=== PATIENT | female | born 1950 | race Caucasian/White ===

== ENCOUNTER 2021-04-04 09:10 | Emergency (ER) | payer MEDICARE, OTHER, SELFPAY ==
[2021-04-04 09:10] VITALS: BP 166/89; PULSE 89; RESP 15; TEMP 36.1; BMI 26.6
--- NOTE | 2021-04-04 09:31 | RAD_ITS ---
STUDY: X-RAY - LUMBAR SPINE REASON FOR EXAM: Female, 70 years old. Injury TECHNIQUE: 3 view(s) of the lumbar spine were obtained. COMPARISON: None FINDINGS: Normal lumbar lordosis. There is a 13 degree dextroscoliosis of the lumbar spine centered at L2-3. There are minor retrolistheses of L1 on L2 and L3 on L4. There is multilevel endplate spondylosis of the visualized thoracolumbar vertebrae. Elongated transverse processes of the L5 vertebra, the left side having a pseudoarticulation to the superomedial margin of the left iliac crest. There is multi-level degenerative disc disease with multi-level disc space narrowing, most prominent at L2-3 and L5-S1. There is no demonstrated osseous destructive lesion or acute fracture. Multilevel degenerative arthroses of the lumbar facet joints. The soft tissue structures are unremarkable. RAD/Lumbar Spine 2 or 3 Views IMPRESSION: Degenerative changes of the spine, as detailed above. There is no demonstrated acute fracture. Electronically Signed: Gregg Tobias MD at 10:07 EST , Service support ,
--- NOTE | 2021-04-04 09:31 | RAD_ITS ---
STUDY: X-RAY - PELVIS REASON FOR EXAM: Female, 70 years old. Injury TECHNIQUE: One view of the pelvis was obtained on 2 images. COMPARISON: None. FINDINGS: There is a non-specific bowel gas pattern. Normal visualized soft tissue structures. Degenerative changes are evident in the lower lumbar spine. There are elongated L5 transverse processes, the left having a pseudoarticulation to the superomedial margin of the left iliac crest. Normal bilateral iliac wings, sacroiliac joints and visualized sacrum. Normal visualized bilateral superior and inferior pubic rami. Normal pubic symphysis. Normal ischial tuberosities. There is no demonstrated osseous destructive lesion or acute fracture. Normal visualized right femoral head. Normal right acetabulum. Normal right hip joint. Normal visualized left femoral head. Normal left acetabulum. Normal left hip joint. RAD/Pelvis 1 or 2 Views IMPRESSION: Normal x-ray examination of the pelvis. There are degenerative changes of the spine; see report of lumbar spine also done today. Electronically Signed: Gregg Tobias MD at 10:08 EST , Service support ,
--- NOTE | 2021-04-04 10:03 | ED.VIS.BACK ---
HPI History of Present Illness Chief Complaint: Back Informant: patient Narrative Narrative: 70-year-old female presents the emergency room with back pain. Patient states about 3 weeks ago she sustained a mechanical fall. States she was a little sore but nothing that was unbearable. For the next couple days she started having increasing pain in the right low back sending into the buttock and down the leg to the foot. She states that the foot feels like it has decreased sensation. She has no bowel or bladder complaints. Pain seems to be worst when she is sitting and when she walks. No red flag history. She is otherwise been a very healthy individual. PFS PFS Medical History no medical history no medical history Home Medications cyclobenzaprine 10 mg PO TID PRN #20 tablet 04/04/21 [Rx Last Taken Unknown] hydrocodone-acetaminophen 1 tab PO Q6H PRN PRN 3 Days #10 tablet 04/04/21 [Rx Last Taken Unknown] naproxen 500 mg PO BID #20 tab 04/04/21 [Rx Last Taken Unknown] prednisone 60 mg PO DAILY #15 tablet 04/04/21 [Rx Last Taken Unknown] Allergy/AdvReac Type Severity Reaction Status Date / Time No Known Allergies Allergy Verified 04/04/21 09:18 Surgical History no surgical history Social History (Updated 04/04/21 @ 10:[address] Star Chavez, ) Smoking Status: Never smoker substance use type: does not use ROS ROS ED Constitutional Constitutional ED: Denies chills or weight loss Eyes Eyes: Denies change in vision or diplopia ENT ENT ED: Denies ear pain, rhinorrhea or sore throat Cardiovascular Cardiovascular: Denies chest pain, orthopnea, palpitations or racing heartbeat Respiratory/Chest Respiratory/Chest: Denies cough, dyspnea or orthopnea Gastrointestinal Gastrointestinal: Denies abdominal pain, diarrhea, nausea or vomiting Genitourinary Genitourinary ED: Denies dysuria, hematuria or urinary frequency Musculoskeletal Musculoskeletal: Reports back pain; Denies arthralgias or myalgias Integumentary Denies abscess or rash Neurologic Neurologic: Reports paresthesias; Denies headache(s) or weakness Psychiatric Psychiatric: Denies anxiety, depression, suicidal ideation or suicidal thoughts Endocrine Endocrinology: Denies polydipsia, polyphagia or polyuria Allergic/Immunologic Allergic/Immunologic ED: Denies mouth swelling, tongue swelling or urticaria EXAM Physical Exam Const Vital Signs: 04/04/21 09:10 Temperature 97.0 F L Temperature Source Temporal Pulse Rate 89 Respiratory Rate 15 Blood Pressure 166/89 H Blood Pressure Mean 114 Positive well nourished and well developed General Appearance ED: well developed HEENT Reports normocephalic, head/scalp atraumatic, TM's clear and moist mucous membranes Negative for trauma Tympanic Membrane ED: Yes TM's clear Eyes PERRL and EOMs intact bilaterally Neck no lymphadenopathy, supple and no JVD Resp normal respiratory effort and clear to auscultation bilaterally Cardio regular rate, regular rhythm and no murmurs GI normal to inspection, nondistended, normoactive bowel sounds and non-tender Palpation: soft Back/Spine no CVA tenderness and normal ROM Back/Spine Narrative: Mild tenderness over the lower lumbar paraspinal musculature on the right. Tenderness over the piriformis muscle on the right. Neurovascular the patient appears intact. Extremity normal to inspection General Extremety ED: Negative for edema General Extremity: Negative for edema Neuro oriented x3 and CN's II-XII intact bilaterally Sensorium / Orientation: alert Motor Exam: strength 5/5 throughout Psych mental status grossly normal Mood & Affect: Negative for depressed or tearful Skin no rashes or lesions noted and no wounds MDM MDM MDM Narrative Medical decision making narrative: My interpretation of the plain films of the pelvis is no acute fracture. My interpretation of the plain films of the lumbar spine is multilevel degenerative changes of the lumbar facet joints, multilevel disc space narrowing particularly at L5-S1 and multilevel spondylosis. There is also a slight scoliotic curve noted. Patient will be started on prednisone Flexeril naproxen and a few Percocet. I informed her the diagnosis is sciatica but the exact origin of the sciatica is questionable. This could be from muscle spasm but has been 3 weeks since the fall I think the most likely culprit will be the degeneration of the spine. Radiography Diagnostic Testing: Clinical Impression(s) from Imaging Studies Lumbar Spine X-Ray 04/04/21 09:31 IMPRESSION: Degenerative changes of the spine, as detailed above. There is no demonstrated acute fracture. Electronically Signed: Gregg Tobias MD at 10:07 EST , Service support , Pelvis X-Ray 04/04/21 09:31 IMPRESSION: Normal x-ray examination of the pelvis. There are degenerative changes of the spine; see report of lumbar spine also done today. Electronically Signed: Gregg Tobias MD at 10:08 EST , Service support , Discharge Plan Triage Chief Complaint: Back ED Provider: Star Chavez Dx/Rx/DC Orders Clinical Impression: Acute right-sided back pain with sciatica Instructions: ED Sciatica Prescriptions: New hydrocodone-acetaminophen [hydrocodone-acetaminophen] 1 TABLET tablet 1 tab PO Q6H PRN PRN (Reason: Pain) 3 Days Qty: 10 RF: 0 naproxen 500 MG tablet 500 mg PO BID Qty: 20 RF: 0 cyclobenzaprine [cyclobenzaprine] 10 MG tablet 10 mg PO TID PRN (Reason: Muscle Spasm) Qty: 20 RF: 0 prednisone 20 MG tablet 60 mg PO DAILY Qty: 15 RF: 0 Primary Care Provider: Kayli Nye Referrals: Kayli Nye MD [Primary Care Provider] - 1-2 Weeks Disposition Disposition: Home, Self Care
[2021-04-04 10:20] VITALS: PULSE 89; RESP 17; O2SAT 98
== END 2021-04-04 10:20 | disposition home or self-care (01) ==
PROVIDERS: Emergency Provider Emergency Medicine; PCP Internal Medicine
DX: M54.41 Lumbago with sciatica, right side (principal); M47.816 Spondylosis without myelopathy or radiculopathy, lumbar region; Z79.1 Long term (current) use of non-steroidal anti-inflammatories (NSAID); Z79.52 Long term (current) use of systemic steroids
CPT/HCPCS: 72100; 72170; 99282

== ENCOUNTER → 2021-05-10 16:13 | Outpatient (CLI) | payer MEDICARE, OTHER, SELFPAY ==
--- NOTE | 2021-05-10 16:13 | MRI_ITS ---
STUDY: MRI LUMBAR SPINE WITHOUT CONTRAST REASON FOR EXAM: Female, 70 years old. SPINAL STENOSIS, chronic lower back pain, right-sided sciatic pain TECHNIQUE: Standardized fat and water weighted pulse sequences were obtained in the sagittal and axial planes. COMPARISON: None FINDINGS: T12-L1: Normal endplates. Normal disc height, hydration and morphology. Normal bilateral facet joints. Normal central canal and bilateral lateral recesses. Normal bilateral intervertebral neural foramina. T12 vertebral body hemangioma. Normal lumbar lordosis. Mild stepwise retrolisthesis at L1-2 and L2-3 There is no substantial scoliosis. Normal conus medullaris that terminates at the level of L1 . L1-2: Normal endplates. Mild disc bulge. Normal bilateral facet joints. Normal central canal and bilateral lateral recesses. Normal bilateral intervertebral neural foramina. L2-3: Type II endplate change. Disc bulge. Mild facet arthrosis. Normal central canal and bilateral lateral recesses. Normal bilateral intervertebral neural foramina. L3-4: Normal endplates. Disc bulge. Normal bilateral facet joints. Normal central canal and bilateral lateral recesses. Normal bilateral intervertebral neural foramina. L4-5: Mild endplate edema. Disc bulge. Moderate right and mild left facet arthrosis. Normal central canal and bilateral lateral recesses. [id number] right and mild left neural foraminal stenosis. L5-S1: Normal endplates. Mild disc bulge. Normal bilateral facet joints. Normal central canal and bilateral lateral recesses. Normal bilateral intervertebral neural foramina. Normal visualized sacral ala. There is mild paraspinal muscular atrophy. MRI/Spine Lumbar (Routine) IMPRESSION: Mild to moderate right and mild left neural foraminal stenosis at L4-5. Mild endplate edema at L4-5. Other degenerative change of the lumbar spine detailed above. Electronically Signed: Tuan Santo MD at 0:45 EST Tel , Service support ,
== END ==
PROVIDERS: PCP Internal Medicine; Visit Provider Orthopaedic Surgery
DX: M48.061 Spinal stenosis, lumbar region without neurogenic claudication (principal)
CPT/HCPCS: 72148

== ENCOUNTER → 2023-02-17 | Outpatient (CLI) | payer MEDICARE, OTHER, SELFPAY ==
[2023-02-17 12:40] LABS: AST(SGOT) 20 U/L (15-37); Alanine Aminotransfer ALT/SGPT 23 U/L (13-56); Albumin, Serum 3.7 g/dL (3.2-5.0); Alkaline Phosphatase 128 U/L (45-117); Anion Gap 3 (5-15); BUN 22 mg/dL (7-18); BUN/Creat Ratio 23.2 RATIO (10-20); Calcium,Total 9.3 mg/dL (8.5-10.1); Chloride 106 mmol/L (98-107); Creatinine, Serum 0.95 mg/dL (0.55-1.02); EST Glomerular Filtration Rate 62 mL/min (>60); Est Glom Filt Rate - Afr Amer 75 mL/min (>60); Globulin 3.6 g/dL (2.2-4.2); Glucose 77 mg/dL (74-106); Potassium 4.1 mmol/L (3.5-5.1); Protein, Total 7.3 g/dL (6.4-8.2); Sodium Level 139 mmol/L (136-145)
== END | disposition home or self-care (01) ==
LOC: MTLAB 10:26
PROVIDERS: PCP Internal Medicine
DX: M17.12 Unilateral primary osteoarthritis, left knee (principal)
CPT/HCPCS: 36415; 80053

== ENCOUNTER 2024-12-29 13:54 | Emergency (ER) | payer MEDICARE, OTHER, SELFPAY ==
[2024-12-29 13:54] VITALS: BP 170/98; PULSE 107; RESP 16; TEMP 36.6; O2SAT 99; BMI 27.8
--- NOTE | 2024-12-29 14:09 | EX.ED.VIS.UR ---
HPI HPI - URI History of Present Illness Chief Complaint: Nosebleed Detail of Chief Complaint: Right-sided nosebleed. Informant: patient Onset/Context/Timing Onset: Today and Days Context: Gradual Onset Timing: Intermittent Current Severity: Mild Maximum Severity: Mild Narrative Narrative: 74-year-old female no past medical history no prior surgeries. Currently on no meds and takes no blood thinners. States earlier in the week she had a nosebleed that resolved and then today again bleeding from the right naris. She denies any trauma. She has had nosebleeds in the past not frequently last one was several years ago that she needed to have it cauterized. She denies any bruising. Or any hematuria or melena. Prior similar symptoms: Yes Recent Illness/Hospitalization: No ROS ROS ED ROS Narrative Denies recent illness. Constitutional Constitutional ED: Denies chills or fever(s) Eyes Eyes: Denies blurry vision ENT ENT ED: Denies ear pain Cardiovascular Cardiovascular: Denies chest pain Respiratory/Chest Respiratory/Chest: Denies cough or dyspnea Gastrointestinal Gastrointestinal: Denies abdominal pain Genitourinary Genitourinary ED: Denies dysuria or hematuria Musculoskeletal Musculoskeletal: Denies arthralgias Integumentary Denies abscess Neurologic Neurologic: Denies headache(s) Psychiatric Psychiatric: Denies anxiety Endocrine Endocrinology: Denies cold intolerance Hematologic/Lymphatic Hematologic/Lymphatic: Denies easy bleeding, easy bruising or lymphadenopathy Allergic/Immunologic Allergic/Immunologic ED: Denies mouth swelling, tongue swelling or urticaria PFSH COUNTS INCLUDE 234 BEDS AT THE [facility] Medical History Vitamin D deficiency Hypercholesterolemia GERD (gastroesophageal reflux disease) Chest pain Primary osteoarthritis of left knee DDD (degenerative disc disease), lumbar Spinal stenosis of lumbar region Home Medications ?Medication ?Instructions ?Recorded ?Last Taken ?Type Saccharomyces boulardii 250 mg 250 mg PO BID 04/23/21 Unknown History capsule (Daily Probiotic (S. boulardii)) Allergy/AdvReac Type Severity Reaction Status Date / Time clindamycin Allergy Intermediate Rash Verified 12/29/24 13:55 nitrofurantoin (From Allergy Intermediate Nausea/Vom/ Verified 12/29/24 13:55 Macrobid) Diarrhea amoxicillin (From Augmentin) AdvReac Severe Diarrhea Verified 12/29/24 13:55 clavulanic acid (From AdvReac Severe Diarrhea Verified 12/29/24 13:55 Augmentin) valdecoxib (From Bextra) AdvReac Severe headache Verified 12/29/24 13:55 etodolac AdvReac Intermediate headache Verified 12/29/24 13:55 ketoprofen AdvReac Intermediate headache Verified 12/29/24 13:55 Surgical History No history of previous surgery Social History Smoking Status: Never smoker alcohol intake: never substance use type: does not use EXAM Physical Exam Narrative Exam Narrative: Well-appearing 74-year-old female. Vital signs stable afebrile. Friend at bedside. H EENT exam pupils round react light. Bright red blood in the right naris coming from anterior Darline box plexus. Left there is no blood. Posterior pharynx currently there is no active bleeding or clots. Neck nontender. Lungs clear. Heart regular rhythm no murmur rate about 100. Chest wall nontender. Abdomen soft nontender. Moving all 4 extremities. Nontender. No bruising. Back nontender. Neurologically she is awake and alert. Answer questions following commands. No focal motor deficits. Const Vital Signs: 12/29/24 13:54 Temperature 98 F Temperature Source Temporal Pulse Rate 107 H Respiratory Rate 16 Blood Pressure 170/98 H Blood Pressure Mean 122 Pulse Ox 99 Oxygen Delivery Method Room Air Positive well nourished and well developed; Negative for cachectic or contractures General Appearance ED: well developed and NAD; Negative for cachectic, contractures, cyanotic or diaphoretic Nutritional Appearance: Negative for cachectic HEENT Reports moist mucous membranes HEENT Narrative: Mild bright red blood right naris. No clot. Anterior source. At Darline box plexus. Left naris no blood or active bleeding. Posterior pharynx small blood no active bleeding or clots. normocephalic and atraumatic Eyes EOMs intact bilaterally General Eye ED: Negative for pale conjunctiva or scleral icterus Neck no lymphadenopathy, supple, no meningeal signs and no JVD General: Negative for anterior neck swelling or lymphadenopathy Resp normal respiratory effort and clear to auscultation bilaterally Cardio S1 normal heart sound, S2 normal heart sound and no murmurs Rate: regular rate Rhythm: regular rhythm GI non-tender, non-distended and no masses Auscultation: normoactive bowel sounds Palpation: soft; Negative for tender, guarding or mass Back/Spine no CVA tenderness and normal ROM General Back: Negative for CVA tenderness Cervical Spine: Negative for cervical spine tenderness Thoracic Spine / Upper Back: Negative for thoracic spinal tenderness Lumbar Spine / Lower Back: Negative for lumbar spinal tenderness Sacrum: Negative for tenderness Extremity normal to inspection and full ROM Neuro oriented x3 Sensorium / Orientation: alert, oriented to person, oriented to place and oriented to time Motor Exam: strength 5/5 throughout Psych mental status grossly normal Skin General Skin Exam: Negative for jaundice Lesions: no lesions Rashes: no rashes MDM MDM MDM Narrative Medical decision making narrative: 74-year-old with a right-sided nosebleed on no blood thinners. Afrin nasal spray Dexter cottonball to be placed in both sides of her nose. She will need an anterior nasal packing we may or may not cauterize. Repeat exam around 3:20 PM. I pulled the cotton balls out of both sides of her nose the bleeding completely stopped. Not on the left. No bleeding at all on the right it was definitely an anterior source. We discussed treatment options. We initially placed an anterior Merisel pack. Patient decided she did not like that. So the pack was pulled. It was not bleeding. I cauterized the area. We walked her up and down the hallway there is no recurrent bleeding. She will be discharged on the follow-up with ENT. Discharge Plan Triage Chief Complaint: Nosebleed ED Provider: Juan Guerin Dx/Rx/DC Orders Clinical Impression: Acute anterior epistaxis Instructions: ED Epistaxis (Adult) Prescriptions: No Action Saccharomyces boulardii [Daily Probiotic (S. boulardii)] 250 mg capsule 250 mg PO BID Primary Care Provider: Kayli Nye Referrals: Mark Hu MD [Med Staff - Active Staff] - 3-5 Days (Call Dr. Hu's office to get an appointment to be seen in about 3 days.) Kayli Nye MD [Primary Care Provider] - Activity Restrictions/Additional Instructions: If rebleeds hold direct pressure for 30 minutes. And ice. If unable to stop try Afrin or Harvey-Synephrine soaked cotton balls. If unable to stop return. Avoid aspirin or aspirin like products. Take it easy over the next couple days. If you get your blood pressure very elevated can cause it to rebleed. Call and follow-up with the ENT's office. Print Language: [place] Disposition Disposition: Home, Self Care
--- OUTSIDE RECORDS SUMMARY | 2024-12-29 14:33 | XMS RPT_ITS | CCD ---
Author Organization [facility] Care Team Providers Care Grants Officer Name Role Phone Jake Jones MD Unavailable DESIREE REYNAGA Attending Unavailable DESIREE REYNAGA Primary Care Unavailable DESIREE REYNAGA Admitting Unavailable JOANA NYE MD Consulting Unavailable PROVIDER, UNKNOWN Consulting Unavailable Joana Nye MD Primary Care Provider Chan Joana Carlos Primary Care Unavailable Janet Randall Attending Unavailable Janet Randall Referring Unavailable Talampas, Joana D Primary Care Unavailable Janet Randall Attending Unavailable Talampas, Joana D Referring Unavailable Talampas, Joana D Primary Care Unavailable Lalo Velez Attending Unavailable Adelso Montague Attending Unavailable Talampas, Joana D Primary Care Unavailable Talampas, Joana D Referring Unavailable Mora Diggs Attending Unavailable Talampas, Joana D Primary Care Unavailable Talampas, Joana D Referring Unavailable Talampas, Joana D Referring Unavailable Casper Russell Attending Unavailable Talampcuco, Joana D Primary Care Unavailable Joana Nye MD Primary Care Provider JOANA NYE Primary Care Unavailable BAY MURRAY Attending Unavailable DR JOANA NYE MD Primary Care Physician CAROLEE HOWARD MD Attending Unavailable DR JOANA NYE MD Primary Care Unavailable Obey RAND BUTTER.V BLOCK SAW OPERATOR, Tiffanie Unavailable Lorene RAND BUTTER.STAFF INTERPRETER, Heidi Unavailable Lorene RAND BUTTER.STAFF INTERPRETER, Heidi Unavailable CHAN JOANA Carlos Primary Care Unavailable TALAMPCUCO, JOANA Carlos Primary Care Unavailable JOANA NYE Primary Care Unavailable JASS HICKEY Referring Unavailable JOANA NYE Primary Care Unavailable TIFFANIE BARNHART Attending Unavailable JOANA NYE Primary Care Unavailable TIFFANIE BARNHART Referring Unavailable JOANA NYE Primary Care Unavailable Allergies Allergy Classification Reported Allergen(s) Allergy Type Date of Onset Reaction(s) Facility (1 source) Clindamycin Drug Allergy 0 [facility] Work Phone: (1 source) Nitrofurantoin Drug Allergy 0 [facility] Work Phone: (16 sources) Clindamycin; Translations: [CLINDAMYCIN] Drug Allergy 3 Rash [facility] Work Phone: (1 source) Nitrofurantoin Drug Allergy 1 unknown [facility] Work Phone: (15 sources) Amoxicillin / Clavulanate; Translations: [AMOXICILLIN-POT CLAVULANATE] Drug Allergy 2 Diarrhea [facility] (15 sources) Etodolac; Translations: [ETODOLAC] Drug Allergy 5 Intolerance [facility] (15 sources) Ketoprofen; Translations: [KETOPROFEN] Drug Allergy 5 Intolerance [facility] (15 sources) NITROFURANTOIN, MACROCRYSTALS / Nitrofurantoin, Monohydrate; Translations: [NITROFURANTOIN MONOHYD/M-CRYST] Drug Allergy 8 GI Upset [facility] Work Phone: (15 sources) valdecoxib; Translations: [VALDECOXIB] Drug Allergy 5 Intolerance [facility] (1 source) Clindamycin Drug Allergy 3 [facility] (1 source) Nitrofurantoin Drug Allergy 3 [facility] Medications Current Medications Medication Drug Class(es) Dates Sig (Normalized) Sig (Original) acetaminophen 500 mg oral tablet (3 sources) take 1 tablet by mouth every eight hours as needed acetaminophen (TYLENOL EXTRA STRENGTH) 500 mg tablet Take 500 mg by mouth every 8 hours as needed. Active Bacillus coagulan/calcium carb (DIGESTIVE ADVANTAGE PROBIOTIC ORAL) (13 sources) take 1 capsule by mouth once daily Bacillus coagulan/calcium carb (DIGESTIVE ADVANTAGE PROBIOTIC ORAL) Take 1 capsule by mouth once daily. Active take 1 capsule by mouth once michelle ly Bacillus coagulan/calcium carb (DIGESTIVE ADVANTAGE PROBIOTIC ORAL) Take 1 capsule by mouth once daily. 0 Active Comment on above: [facility]. doxycycline hyclate 100 mg oral tablet (2 sources) Tetracycline-clas s Drug Start: 08-04-2024 End: 08-11-2024 take 1 tablet by mouth twice daily doxycycline (VIBRA-TABS) 100 mg tablet Take 1 tablet by mouth two times a day for 7 days. 14 tablet 08/04/2024 08/11/2024 Active Start: 05-10-2024 End: 05-20-2024 take 1 tablet by mouth twice daily doxycycline (VIBRA-TABS) 100 mg tablet Indications: Acute recurrent sinusitis, unspecified location Take 1 tablet by mouth two times a day for 10 days. 20 tablet 05/10/2024 05/20/2024 Active naproxen 500 mg oral tablet (1 source) Nonsteroidal Anti-inflammatory Drug Start: 04-04-2021 take 500 mg by mouth twice daily Naproxen Active 500 MG PO TWICE A DAY April 04, 2021 12:00am OTC NUTRITIONAL SUPPLEMENT (3 sources) OTC NUTRITIONAL SUPPLEMENT Balance of Nature Active saccharomyces boulardii 250 mg oral capsule (1 source) Start: 04-23-2021 take 1 capsule by mouth twice daily Saccharomyces Boulardii (Daily Probiotic (S. Boulardii)) 250 mg capsule Active 250 MG PO TWICE A DAY April 23, 2021 12:00am Completed/Discontinued Medications Medication Drug Class(es) Dates Sig (Normalized) Sig (Original) acetaminophen 325 mg / HYDROcodone bitartrate 5 mg oral tablet (1 source) Opioid Agonist Start: 04-04-2021 End: 05-26-2021 take 1 tablet by mouth every six hours as needed Hydrocodone-Acetami nophen Discontinued 1 TABLET PO EVERY 6 HOURS NEEDED 02 21April 04, 2021 May 26, 2021 11:34am amoxicillin 875 mg / clavulanate 125 mg oral tablet (1 source) Penicillin-class Antibacterial Start: 05-01-2021 End: 05-11-2021 take 1 tablet by mouth twice daily at mealtime Amoxicillin-Pot Clavulanate (Augmentin) 875-125 mg tablet Discontinued 1 TABLET PO TWICE A DAY 10 03May 01, 2021 12:00am May 11, 2021 12:01am take with food cyclobenzaprine hydrochloride 10 mg oral tablet (1 source) Muscle Relaxant Start: 04-04-2021 End: 05-26-2021 take 10 mg by mouth three times daily Cyclobenzaprine Discontinued 10 MG PO THREE TIMES A DAY April 04, 2021 12:00am May 26, 2021 11:34am diclofenac sodium 25 mg delayed release oral tablet (10 sources) Nonsteroidal Anti-inflammatory Drug Start: 11-05-2022 End: 04-05-2024 diclofenac, EC, (VOLTAREN) 25 mg EC tablet Take 1 tablet by mouth as needed for pain. 11/05/2022 04/05/2024 Discontinued Comment on above: Take 1 tablet by lit as needed for pain. fluticasone propionate 0.05 mg/actuat metered dose nasal spray (10 sources) Corticosteroid End: 04-05-2024 fluticasone (FLONASE) 50 mcg/actuation nasal spray Use 2 Sprays in each nostril as needed. 04/05/2024 Discontinued Comment on above: Use 2 Sprays in each nostril as needed. meloxicam 15 mg oral tablet (6 sources) Nonsteroidal Anti-inflammatory Drug Start: 01-02-2023 End: 04-05-2024 meloxicam (MOBIC) 15 mg tablet 01/02/2023 04/05/2024 Discontinued omeprazole 20 mg delayed release oral tablet (12 sources) Proton Pump Inhibitor Start: 03-07-2007 End: 04-05-2024 Omeprazole Magnesium (PRILOSEC OTC) 20 mg ORAL TbEC as needed 0 03/07/2007 04/05/2024 Discontinued Comment on above: as needed polyethylene glycol 3350 685034 mg / potassium chloride 2970 mg / sodium bicarbonate 6740 mg / sodium chloride 5860 mg / sodium sulfate 91497 mg powder for oral solution (2 sources) Osmotic Laxative Start: 01-27-2023 End: 01-27-2023 peg 3350-Electrolytes (GOLYTELY) 236-22.74-6.74 -5.86 gram suspension Take 4,000 mL by mouth one time only for 1 dose. 1 Each 0 01/27/2023 01/27/2023 Comment on above: Take 4,000 mL by lti one time only for 1 dose. predniSONE 20 mg oral tablet (1 source) Start: 04-04-2021 End: 05-26-2021 take 60 mg by mouth once daily Prednisone Discontinued 60 MG PO DAILY April 04, 2021 12:00am May 26, 2021 11:34am psyllium husk (DAILY FIBER ORAL) (10 sources) End: 04-05-2024 take 1 capsule by mouth once daily, then take 1-2 capsules by mouth once daily psyllium husk (DAILY FIBER ORAL) Take 1 capsule by mouth once daily. 1-2 capsules daily 04/05/2024 Discontinued take 1 capsule by mo uth once daily, then take 1-2 capsules by mouth once daily psyllium husk (DAILY FIBER ORAL) Take 1 capsule by mouth once daily. 1-2 capsules daily Active take 1 capsule by mo uth once daily, then take 1-2 capsules by mouth once daily psyllium husk (DAILY FIBER ORAL) Take 1 capsule by mouth once daily. 1-2 capsules daily 0 Active Comment on above: Take 1 capsule by mo uth once daily. 1-2 capsules daily Problems Active Problems Problem Classification Problem Date Documented Da te Episodic/Chronic Disorders of lipid metabolism (3 sources) Hypercholesterolemia ; Translations: [Pure hypercholesterolemia , unspecified] Onset: 04-05-2024 12-09-2022 Chronic E Codes: Fall (1 source) Unspecified fall, initial encounter; Translations: [Fall, initial encounter] Onset: 02-28-2024 Episodic Fracture of upper limb (3 sources) Closed fracture of right shoulder; Translations: [Fracture of right shoulder girdle, part unspecified, initial encounter for closed fracture] Onset: 02-28-2024 02-28-2024 Episodic Nutritional deficiencies (2 sources) Vitamin D deficiency; Translations: [Vitamin D deficiency, unspecified] Onset: 04-05-2024 04-05-2024 Chronic Osteoarthritis (2 sources) Degenerative joint disease involving multiple joints; Translations: [Polyosteoarthritis, unspecified] Onset: 02-23-2023 12-09-2022 Chronic Other connective tissue disease (1 source) Impingement syndrome of shoulder region; Translations: [Impingement syndrome of left shoulder] Onset: 10-25-2019 10-25-2019 Episodic Other ear and sense organ disorders (1 source) Impacted cerumen in left ear; Translations: [Impacted cerumen, left ear] 12-09-2022 Episodic Other gastrointestinal disorders (4 sources) Stool DNA-based colorectal cancer screening positive; Translations: [Other fecal abnormalities] 01-16-2023 Episodic Other injuries and conditions due to external causes (1 source) Fracture of bone; Translations: [Other injury of unspecified body region, initial encounter] 02-28-2024 Episodic Other screening for suspected conditions (not mental disorders or infectious disease) (10 sources) Patient encounter status; Translations: [Encounter for screening for osteoporosis] 12-09-2022 Episodic Other upper respiratory infections (16 sources) Sinusitis; Translations: [Chronic sinusitis, unspecified] Onset: 03-09-2009 03-09-2009 Chronic Other upper respiratory infections (1 source) Recurrent acute sinusitis; Translations: [Acute recurrent sinusitis, unspecified] 05-10-2024 Episodic Residual codes; unclassified (2 sources) Menopause present; Translations: [Asymptomatic menopausal state] 12-09-2022 Episodic Residual codes; unclassified (2 sources) Pain; Translations: [Pain, unspecified] 02-28-2024 Episodic Spondylosis; intervertebral disc disorders; other back problems (2 sources) Degeneration of lumbar intervertebral disc; Translations: [Other intervertebral disc degeneration, lumbar region] 12-09-2022 Chronic Past or Other Problems Problem Classification Problem Date Documented Da te Episodic/Chronic Immunizations and screening for infectious disease (2 sources) Viral screening status; Translations: [Encounter for screening for other viral diseases] Onset: 04-05-2024 04-05-2024 Episodic Other non-traumatic joint disorders (13 sources) Pain in lower limb; Translations: [Pain in unspecified knee] Onset: 07-13-2005 07-13-2005 Episodic Other non-traumatic joint disorders (1 source) Pain in left knee; Translations: [Pain in left knee] Onset: 11-11-2022 Episodic Residual codes; unclassified (1 source) Pain, unspecified; Translations: [Pain] Onset: 02-28-2024 Episodic Spondylosis; intervertebral disc disorders; other back problems (15 sources) Spinal stenosis of lumbar region; Translations: [Spinal stenosis, lumbar region without neurogenic claudication] Onset: 04-28-2005 04-28-2005 Episodic Unclassified (1 source) Problem Results Test Name Value Interpretation Reference Range Facility [facility] 08-04-2024 CNOV Office Visit (UCWSTR ) -------- ADELINA DOMINGUEZ ([id number]) 1950 F Date Time Provider Department 08/04/24 10:45 AM TIANNA BRAND [facility] During your visit today, we recorded the following information about you: Temperature Pulse Respiration Blood pressure 97.8 degrees 88/minute 16/minute 142/84 Weight 73.9 kg Tianna Brand, RAND BUTTER.STAFF INTERPRETER 08/04/2024 11:14 AM Signed [facility] Subjective Adelina Dominguez is a 73 year old female. Patient presents with: Sinus Problem: Nasal congestion, green drainage and CARPIO x 2 weeks 73 year old female with PMH GERD presents for illness. Acute onset 2 weeks ago +sinus pressure +congestion +headache +ear pressure +post nasal drainage + cough Denies N/V/D Denies CP Denies dyspnea Has used simply saline Coricidin The history is provided by the patient. No edi programmer was used. Sinus Problem This is a new problem. The current episode started 1 to 4 weeks ago. The problem occurs constantly. The problem has been unchanged. Associated symptoms include congestion, coughing and headaches. Pertinent negatives include no abdominal pain, anorexia, arthralgias, change in bowel habit, chest pain, chills, diaphoresis, fatigue, fever, joint swelling, myalgias, nausea, neck pain, numbness, rash, sore throat, swollen glands, urinary symptoms, vertigo, visual change, vomiting or weakness. Nothing aggravates the symptoms. Treatments tried: saline and Coricidin. The treatment provided no relief. 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 - Bacillus coagulan/calcium carb (DIGESTIVE ADVANTAGE PROBIOTIC ORAL) Take 1 capsule by mouth once daily. - doxycycline (VIBRA-TABS) 100 mg tablet Take 1 tablet by mouth two times a day for 7 days. - OTC NUTRITIONAL SUPPLEMENT Balance of Nature (Patient not taking: Reported on 08/04/2024) FAMILY HISTORY Problem Relation Age of Onset - other (Other [Other]) Mother Crohn's Disease, osteoarthritis - other (Other [Other]) Father CVA, Parkinsons, Dementia - other (Other [Other]) Sister Renal failure; had kidney transplant Social History Tobacco Use - Smoking status: Never - Smokeless tobacco: Never Vaping Use - Vaping status: Never Used Substance Use Topics - Alcohol use: No - Drug use: No Review of Systems Constitutional: Negative for chills, diaphoresis, fatigue and fever. HENT: Positive for congestion, postnasal drip, sinus pressure and sinus pain. Negative for sore throat. Eyes: Negative for pain, discharge, redness and itching. Respiratory: Positive for cough. Negative for apnea and chest tightness. Cardiovascular: Negative for chest pain. Gastrointestinal: Negative for abdominal pain, anorexia, change in bowel habit, nausea and vomiting. Musculoskeletal: Negative for arthralgias, joint swelling, myalgias and neck pain. Skin: Negative for rash. Allergic/Immunologic: Negative for environmental allergies, food allergies and immunocompromised state. Neurological: Positive for headaches. Negative for dizziness, vertigo, facial asymmetry, weakness and numbness. Hematological: Negative for adenopathy. Does not bruise/bleed easily. Psychiatric/Behavioral: Negative for agitation and behavioral problems. Objective BP 142/84 (BP Site: Left Arm, BP Position: Sitting) Pulse 88 Temp 36.6 ?C (97.8 ?F) Resp 16 Wt 73.9 kg (162 lb 14.7 oz) SpO2 99% BMI 30.28 kg/m? Physical Exam Vitals and nursing note reviewed. Constitutional: General: She is not in acute distress. Appearance: Normal appearance. She is normal weight. She is not ill-appearing, toxic-appearing or diaphoretic. HENT: Head: Normocephalic and atraumatic. Right Ear: Ear canal and external ear normal. Left Ear: Ear canal and external ear normal. Ears: Comments: +frontal sinus pressure +maxillary sinus pressure Bilateral TMs mild erythema Nose: Congestion present. No rhinorrhea. Mouth/Throat: Mouth: Mucous membranes are moist. Pharynx: Posterior oropharyngeal erythema present. No oropharyngeal exudate. Eyes: General: Right eye: No discharge. Left eye: No discharge. Extraocular Movements: Extraocular movements intact. Conjunctiva/sclera: Conjunctivae normal. Pupils: Pupils are equal, round, and (more content not included)... Normal [facility] CNOVon 05-10-2024 CNOV Office Visit (WSTR ) -------- ADELINA DOMINGUEZ ([id number]) 1950 F Date Time Provider Department 05/10/24 10:15 AM NOHEMI LOBO [facility] During your visit today, we recorded the following information about you: Temperature Pulse Respiration Blood pressure 98.4 degrees 81/minute 18/minute 94/63 Weight 71 kg Nohemi Lobo PA-C 05/10/2024 10:41 AM Signed This note was created using Charlie App[employer]. Subjective Adelina Dominguez is a 73 year old female. Patient is a 73-year-old female who complains of worsening congestion, sinus pressure, ear pressure, left ear pain, sore throat cough that she has been experiencing for approximately 2 weeks. Patient reports no fever, chills or myalgia. Patient has no history of asthma or COPD and does not smoke. Patient has been taking [id number] medications with no improvement in her symptoms. Patient states that she does have a history of sinus infections and that her current symptoms are consistent with same. Sore Throat Associated symptoms include congestion, coughing and ear pain. Review of Systems HENT: Positive for congestion, ear pain, sinus pressure, sinus pain and sore throat. Respiratory: Positive for cough. All other systems reviewed and are negative. Objective BP 94/63 Pulse 81 Temp 36.9 ?C (98.4 ?F) Resp 18 Wt 71 kg (156 lb 8.4 oz) SpO2 99% BMI 29.10 kg/m? Physical Exam Vitals and nursing note reviewed. Constitutional: Appearance: Normal appearance. She is normal weight. HENT: Head: Normocephalic and atraumatic. Right Ear: Tympanic membrane, ear canal and external ear normal. Left Ear: Tympanic membrane, ear canal and external ear normal. Nose: Congestion present. Mouth/Throat: Mouth: Mucous membranes are moist. Pharynx: Oropharynx is clear. Posterior oropharyngeal erythema present. Eyes: Extraocular Movements: Extraocular movements intact. Conjunctiva/sclera: Conjunctivae normal. Pupils: Pupils are equal, round, and reactive to light. Cardiovascular: Rate and Rhythm: Normal rate and regular rhythm. Pulses: Normal pulses. Heart sounds: Normal heart sounds. Pulmonary: Effort: Pulmonary effort is normal. Breath sounds: Normal breath sounds. Musculoskeletal: Cervical back: Normal range of motion and neck supple. Skin: General: Skin is warm and dry. Capillary Refill: Capillary refill takes less than 2 seconds. Neurological: General: No focal deficit present. Mental Status: She is alert and oriented to person, place, and time. Psychiatric: Mood and Affect: Mood normal. Behavior: Behavior normal. Thought Content: Thought content normal. Judgment: Judgment normal. Assessment and Plan Physical exam findings as noted above. Patient does experience diarrhea with Augmentin and she was therefore provided with prescription for doxycycline 100 mg. Supportive care instructions were discussed and the patient verbalizes good understanding of same. CLINICAL IMPRESSION: Acute Sinusitis ASSESSMENT/PLAN: 1. Acute recurrent sinusitis, unspecified location - ICD9: 461.9, ICD10: J01.91 - DOXYCYCLINE HYCLATE 100 MG TABLET Nohemi BEVERLY Lobo Allergies As of Date: 05/10/2024 Noted Allergy Reaction AUGMENTIN (AMOXICILLIN-POT CLAVUL*09/24/2011 6 - Diarrhea BEXTRA (VALDECOXIB) 04/12/2005 5 - Intolerance Comments: Headache CLINDAMYCIN 08/20/2012 2 - Rash Comments: Systemic drug rash following tx. 2wks prior had been taking amoxil-done well in past. KETOPROFEN 04/12/2005 5 - Intolerance Comments: Headache MACROBID (NITROFURANTOIN MONOHYD/*04/03/2008 8 - GI Upset Comments: Headache, chills LODINE (ETODOLAC) 04/12/2005 5 - Intolerance Comments: Headache Date Reviewed: 05/10/2024 Reviewed by: She Capone MA - Fully Assessed Reason for Visit: Sore Throat [200] Cmt: X2 days, L ear pain, fever, sinus congestion x1 week Primary Visit Diagnosis:Acute recurrent sinusitis, unspecified location [J01.91] Order(s):doxycycline (VIBRA-TABS) 100 mg tabletTake 1 tablet by mouth two times a day for 10 days.Disp: 20 tabletRfl: 0 Prescriptions as of 05/10/2024 - doxycycline (VIBRA-TABS) 100 mg tablet Take 1 tablet by mouth two times a day for 10 days. - OTC NUTRITIONAL SUPPLEMENT Balance of Nature - acetaminophen (TYLENOL EXTRA STRENGTH) 500 mg tablet Take 500 mg by mouth every 8 hours as needed. - Bacillus coagulan/calcium carb (DIGESTIVE ADVANTAGE PROBIOTIC ORAL) Take 1 capsule by mouth once daily. Problem List As Of Date 05/10/2024 Noted Resolved SCIATICA [M54.30] 04/28/2005 PAIN IN JOINT, LOWER LEG [M25.569] 07/13/2005 Chronic Sinusitis [J32.9] 03/09/2009 Prescriptions ordered this encounter Disp Refills Start End DOXYCYCLINE HYCLATE 100 MG TABLET 20 t* 0 05/10/2024 05/20/2024 Route: ORAL Sig: Take 1 tablet by mouth two times a day for 10 days. Level of Service: OFFICE/OUTPATIENT ESTABLISHED MOD (more content not included)... Normal [facility] 25(OH)D3 [facility] 25-hydroxyvitamin D3 [Mass/Vol] 29.8 ng/mL Low 31.0-80.0 [facility] Comment on above: Order Comment: Speci men Type: BLOOD SPECIMEN Ordering Facility: [facility] Address: [address] [place] [address] Result Comment: Cladoris sification of 25 [place] Vitamin D status: Deficiency/Insufficiency: < or = 30 ng/ml. Sufficiency/Optimal Levels: 31-80 ng/mL Toxicity: > 100 ng/mL. Test performed by chemiluminescent immunoassay. Performed By: #### [facility], [id number] #### [facility] CLIA [id number] [address] [place] [address] [place] [address] [place] CBC W Auto Differential pane l (Bld)on 04-05-2024 Basophils (Bld) [#/Vol] 0.05 10*3/uL [facility] Basophils/100 WBC (Bld) 0.8 % [facility] Differential cell count method Nom (Bld) Auto [facility] Eosinophils (Bld) [#/Vol] 0.14 10*3/uL [facility] Eosinophils/100 WBC (Bld) 2.2 % [facility] Erythrocyte distribution width (RBC) [Ratio] 14.0 % 11.5 - 15.0 % [facility] Hematocrit (Bld) [Volume fraction] 47.2 % High 36.0 - 46.0 % [facility] Hemoglobin (Bld) [Mass/Vol] 14.3 g/dL 11.5 - 15.5 g/dL [facility] Immature granulocytes (Bld) [#/Vol] 0.03 10*3/uL [facility] Immature granulocytes/100 WBC (Bld) 0.5 % [facility] Interpretation and review of laboratory results Abnormal [facility] Lymphocytes (Bld) [#/Vol] 1.24 10*3/uL [facility] Lymphocytes/100 WBC (Bld) 19.1 % [facility] MCH (RBC) [Entitic mass] 28.0 pg 26.0 - 34.0 pg [facility] MCHC (RBC) [Mass/Vol] 30.3 g/dL Low 30.5 - 36.0 g/dL [facility] MCV (RBC) [Entitic vol] 92.5 fL 80.0 - 100.0 fL [facility] Monocytes (Bld) [#/Vol] 0.42 10*3/uL NINF [facility] Monocytes/100 WBC (Bld) 6.5 % [facility] Neutrophils (Bld) [#/Vol] 4.62 10*3/uL [facility] Neutrophils/100 WBC (Bld) 70.9 % [facility] Nucleated RBC (Bld) [#/Vol] NINF [facility] Nucleated RBC/100 WBC (Bld) [Ratio] 0.0 % /100 WBC [facility] Platelet mean volume (Bld) [Entitic vol] 10.6 fL 9.0 - 12.7 fL [facility] Platelets (Bld) [#/Vol] 250 10*3/uL [facility] RBC (Bld) [#/Vol] 5.10 10*6/uL 3.90 - 5.2 0 m/uL [facility] WBC (Bld) [#/Vol] 6.50 10*3/uL [facility] Basophils (Bld) [#/Vol] 0.05 10*3/uL Normal <0.11 [facility] Comment on above: Order Comment: Speci men Type: BLOOD SPECIMEN [facility] Address: [address] [place] [address] Performed By: #### L NITA, 63275-1 #### [facility] CLIA [id number] [address] [place] [address] [place] Basophils/100 WBC (Bld) 0.8 % Normal [facility] Comment on above: Order Comment: Speci men Type: BLOOD SPECIMEN [facility] Address: [address] [place] [address] Performed By: #### L IPLUIS, 32918-8 #### [facility] CLIA [id number] [address] [place] [address] [place] Differential cell count method Nom (Bld) Auto Normal [facility] Comment on above: Order Comment: Speci men Type: BLOOD SPECIMEN [facility] Address: [address] [place] [address] Performed By: #### L IPNF, 02047-1 #### [facility] CLIA [id number] [address] [place] [address] [place] Eosinophils (Bld) [#/Vol] 0.14 10*3/uL Normal <0.46 [facility] Comment on above: Order Comment: Speci men Type: BLOOD SPECIMEN [facility] Address: [address] [place] [address] Performed By: #### L IPNF, 61798-6 #### [facility] CLIA [id number] [address] [place] [address] [place] Eosinophils/100 WBC (Bld) 2.2 % Normal [facility] Comment on above: Order Comment: Speci men Type: BLOOD SPECIMEN [facility] Address: [address] [place] [address] Performed By: #### L IPLUIS, 51992-7 #### [facility] CLIA [id number] [address] [place] [address] [place] Erythrocyte distribution width (RBC) [Ratio] 14.0 % Normal 11.5-15.0 [facility] Comment on above: Order Comment: Speci men Type: BLOOD SPECIMEN [facility] Address: [address] [place] [address] Performed By: #### L IPNF, #### [facility] CLIA [id number] [address] [place] [address] [place] Hematocrit (Bld) [Volume fraction] 47.2 % High 36.0-46.0 [facility] Comment on above: Order Comment: Speci men Type: BLOOD SPECIMEN [facility] Address: [address] [place] [address] Performed By: #### L IPNF, 21150-9 #### [facility] CLIA [id number] [address] [id number] [address] [place] Hemoglobin (Bld) [Mass/Vol] 14.3 g/dL Normal 11.5-15.5 [facility] Comment on above: Order Comment: Speci men Type: BLOOD SPECIMEN [facility] Address: [address] [place] [address] Performed By: #### L IPNF, 66421-8 #### [facility] CLIA [id number] [address] [place] [address] [place] Immature granulocytes (Bld) [#/Vol] 0.03 10*3/uL Normal <0.10 [facility] Comment on above: Order Comment: Speci men Type: BLOOD SPECIMEN [facility] Address: [address] [place] [address] Performed By: #### L IPNF, 43518-3 #### [facility] CLIA [id number] [address] [place] [address] [place] Immature granulocytes/100 WBC (Bld) 0.5 % Normal [facility] Comment on above: Order Comment: Speci men Type: BLOOD SPECIMEN [facility] Address: [address] [place] [address] Performed By: #### L IPNF, 98046-0 #### [facility] CLIA [id number] [address] [place] [address] [place] Lymphocytes (Bld) [#/Vol] 1.24 10*3/uL Normal 1.00-4.00 [facility] Comment on above: Order Comment: Speci men Type: BLOOD SPECIMEN [facility] Address: [address] [place] [address] Performed By: #### L IPNF, 68913-2 #### [facility] CLIA [id number] [address] [place] [address] [place] Lymphocytes/100 WBC (Bld) 19.1 % Normal [facility] Comment on above: Order Comment: Speci men Type: BLOOD SPECIMEN [facility] Address: [address] [place] [address] Performed By: #### L NITA, 59412-9 #### [facility] CLIA [id number] [address] [place] [address] [place] MCH (RBC) [Entitic mass] 28.0 pg Normal 26.0-34.0 [facility] Comment on above: Order Comment: Speci men Type: BLOOD SPECIMEN [facility] Address: [address] [place] [address] Performed By: #### L NITA, 27615-4 #### [facility] CLIA [id number] [address] [place] [address] [place] MCHC (RBC) [Mass/Vol] 30.3 g/dL Low 30.5-36.0 [facility] Comment on above: Order Comment: Speci men Type: BLOOD SPECIMEN [facility] Address: [address] [place] [address] Performed By: #### L IPLUIS, 03140-6 #### [facility] CLIA [id number] [address] [place] [address] [place] MCV (RBC) [Entitic vol] 92.5 fL Normal 80.0-100.0 [facility] Comment on above: Order Comment: Speci men Type: BLOOD SPECIMEN [facility] Address: [address] [place] [address] Performed By: #### L IPNF, 85715-8 #### [facility] CLIA [id number] [address] [place] [address] [place] Monocytes (Bld) [#/Vol] 0.42 10*3/uL Normal <0.87 [facility] Comment on above: Order Comment: Speci men Type: BLOOD SPECIMEN [facility] Address: [address] [place] [address] Performed By: #### L IPNF, 30429-9 #### [facility] CLIA [id number] [address] [place] [address] [place] Monocytes/100 WBC (Bld) 6.5 % Normal [facility] Comment on above: Order Comment: Speci men Type: BLOOD SPECIMEN [facility] Address: [address] [place] [address] Performed By: #### L IPNF, 74076-7 #### [facility] CLIA [id number] [address] [place] [address] [place] Neutrophils (Bld) [#/Vol] 4.62 10*3/uL Normal 1.45-7.50 [facility] Comment on above: Order Comment: Speci men Type: BLOOD SPECIMEN [facility] Address: [address] [place] [address] Performed By: #### L IPNF, 02865-2 #### [facility] CLIA [id number] [address] [place] [address] [place] Neutrophils/100 WBC (Bld) 70.9 % Normal [facility] Comment on above: Order Comment: Speci men Type: BLOOD SPECIMEN [facility] Address: [address] [place] [address] Performed By: #### L IPNF, 62544-2 #### [facility] CLIA [id number] [address] [place] [address] [place] Nucleated RBC (Bld) [#/Vol] 10*3/uL Normal <0.01 [facility] Comment on above: Order Comment: Speci men Type: BLOOD SPECIMEN [facility] Address: [address] [place] [address] Performed By: #### L IPNF, 92602-4 #### [facility] CLIA [id number] [address] [place] [address] [place] Nucleated RBC/100 WBC (Bld) [Ratio] 0.0 /100 WBC Normal [facility] Comment on above: Order Comment: Speci men Type: BLOOD SPECIMEN [facility] Address: [address] [place] [address] Performed By: #### L IPNF, 87464-2 #### [facility] CLIA [id number] [address] [place] [address] [place] Platelet mean volume (Bld) [Entitic vol] 10.6 fL Normal 9.0-12.7 [facility] Comment on above: Order Comment: Speci men Type: BLOOD SPECIMEN [facility] Address: [address] [place] [address] Performed By: #### L IPNF, 17795-7 #### [facility] CLIA [id number] [address] [place] [address] [place] Platelets (Bld) [#/Vol] 250 10*3/uL Normal 150-400 [facility] Comment on above: Order Comment: Speci men Type: BLOOD SPECIMEN [facility] Address: [address] [place] [address] Performed By: #### L IPNF, 64726-0 #### [facility] CLIA [id number] [address] [place] [address] [place] RBC (Bld) [#/Vol] 5.10 10*6/uL Normal 3.90-5.20 [facility] Comment on above: Order Comment: Speci men Type: BLOOD SPECIMEN [facility] Address: [address] [place] [address] Performed By: #### L IPNF, 28860-6 #### [facility] CLIA [id number] [address] [place] [address] [place] WBC (Bld) [#/Vol] 6.50 10*3/uL Normal 3.70-11.00 [facility] Comment on above: Order Comment: Mark elizabeth Type: BLOOD SPECIMEN [facility] Address: [address] [place] [address] Performed By: #### L [facility], 12937-8 #### [facility] CLIA [id number] [address] [place] [address] STATES OF [facility] CNOVon 04-05-2024 CNOV Office Visit (INTMWS ) -------- ADELINA DOMINGUEZ ([id number]) 1950 F Date Time Provider Department 04/05/24 12:20 PM TIFFANIE BARNHART INTMWS During your visit today, we recorded the following information about you: Pulse Respiration Blood pressure Weight 82/minute 16/minute 133/85 70 kg Tiffanie Barnhart, THOM.V BLOCK SAW OPERATOR 04/05/2024 1:12 PM Signed SUBJECTIVE: Depression Screening Never done Anxiety Screening Never done Hepatitis C Screening Never done Shingrix Vaccine(1 of 2) Never done Pneumococcal Vaccine: 65+(1 of 1 - PCV) Never done DTaP,Tdap,Td Vaccine(2 - Td or Tdap) due on 11/28/2022 Advance Directive Discussion due on 05/22/2023 Mammogram Screening due on 01/07/2024 Influenza Vaccine(1) due on 01/21/2024 Covid-19 Vaccine( season) due on 01/21/2024 [facility] Adelina Paresh Angelica is a 73 year old female. PMH significant for ACTIVE PROBLEM LIST Sciatica Pain in Joint, Lower Leg Chronic Sinusitis She was seen in [facility] care for shoulder injury February 28, 2024. Referred to emergency department. She was seen at [facility] ER. Sling was last provided. Orthopedics to follow-up in outpatient setting. She was seen by [facility] orthopedic provider, was able to be seen the next day. No surgery needed, recovering well, has started physical therapy. May have limited overhead motion at final healing. She underwent Cologuard testing which was positive. Seen by general surgery to discuss colon cancer screening / colonsocopy. Decided not to proceed with colonoscopy at that time. States she had diarrhea at the time that she completed the Cologuard. States her mother had trouble with colonoscopy, mother had Crohn's and had perforation requiring ostomy afterwards. Review of Systems Constitutional: Negative. Endocrine: Negative. Musculoskeletal: Positive for arthralgias. Objective Physical Exam Vitals and nursing note reviewed. Constitutional: Appearance: Normal appearance. HENT: Head: Normocephalic and atraumatic. Eyes: Conjunctiva/sclera: Conjunctivae normal. Neck: Thyroid: No thyromegaly. Vascular: Normal carotid pulses. No JVD. Cardiovascular: Rate and Rhythm: Normal rate and regular rhythm. Pulses: Carotid pulses are 2+ on the right side and 2+ on the left side. Radial pulses are 2+ on the right side and 2+ on the left side. Heart sounds: Normal heart sounds. Pulmonary: Effort: Pulmonary effort is normal. Breath sounds: Normal breath sounds. Abdominal: General: Bowel sounds are normal. Palpations: Abdomen is soft. Musculoskeletal: Right lower leg: No edema. Left lower leg: No edema. Skin: General: Skin is warm and dry. Neurological: General: No focal deficit present. Mental Status: She is alert and oriented to person, place, and time. ALLERGIES Allergen Reactions Augmentin [Amoxicil* Diarrhea Bextra [Valdecoxib] Intolerance Headache Clindamycin Rash Systemic drug rash following tx. 2wks prior had been taking amoxil-done well in past. Ketoprofen Intolerance Headache Macrobid [Nitrofura* GI Upset Headache, chills Lodine [Etodolac] Intolerance Headache Medications acetaminophen (TYLENOL EXTRA STRENGTH) 500 mg tablet Take 500 mg by mouth every 8 hours as needed. OTC NUTRITIONAL SUPPLEMENT Balance of Nature meloxicam (MOBIC) 15 mg tablet (Patient not taking: Reported on 02/28/2024) psyllium husk (DAILY FIBER ORAL) Take 1 capsule by mouth once daily. 1-2 capsules daily (Patient not taking: Reported on 02/28/2024) Bacillus coagulan/calcium carb (DIGESTIVE ADVANTAGE PROBIOTIC ORAL) Take 1 capsule by mouth once daily. diclofenac, EC, (VOLTAREN) 25 mg EC tablet Take 1 tablet by mouth as needed for pain. (Patient not taking: Reported on 01/27/2023) fluticasone (FLONASE) 50 mcg/actuation nasal spray Use 2 Sprays in each nostril as needed. 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 Lumbar facet arthropathy Positive colorectal cancer screening using Cologuard test 01/01/2023 Social History Tobacco Use Smoking status: Never Smokeless tobacco: Never Vaping Use Vaping status: Never Used Substance Use Topics Alcohol use: No Drug use: No Latest Ref Rng 12/23/2022 01/01/2023 Protein, Total 6.3 - 8.0 g/dL 6.9 Albumin 3.9 - 4.9 g/dL 4.5 Calcium 8.5 - 10.2 mg/dL 9.6 Bilirubin, Total 0.2 - 1.3 mg/dL 0.5 Alkaline Phosphatase 34 - 123 U/L 118 AST 13 - 35 U/L 21 ALT 7 - 38 U/L 16 Glucose 74 - 99 mg/dL 90 BUN 7 - 21 mg/dL 19 Creatinine 0.58 - 0.96 mg/dL 0.90 Sodium 136 - 144 mmol/L 140 (more content not included)... Normal [facility] Comprehensive metabolic 2000 panelon 04-05-2024 Albumin [Mass/Vol] 4.5 g/dL Normal 3.9-4.9 [facility] Comment on above: Order Comment: Speci men Type: BLOOD SPECIMEN [facility] Address: [address] [place] [address] Performed By: #### L IPNF, 38466-1 #### [facility] CLIA [id number] [address] [place] [address] [place] [address] [place] ALP [Catalytic activity/Vol] 137 U/L High 34-123 [facility] Comment on above: Order Comment: Speci men Type: BLOOD SPECIMEN [facility] Address: [address] [place] [address] Performed By: #### L IPNF, 35666-5 #### [facility] CLIA [id number] [address] [place] [address] [place] ALT [Catalytic activity/Vol] 21 U/L Normal 7-38 [facility] Comment on above: Order Comment: Speci men Type: BLOOD SPECIMEN [facility] Address: [address] [place] [address] Performed By: #### L IPNF, 94859-0 #### [facility] CLIA [id number] [address] [place] [address] [place] Anion gap [Moles/Vol] 13 mmol/L Normal 8-15 [facility] Comment on above: Order Comment: Speci men Type: BLOOD SPECIMEN [facility] Address: [address] [place] [address] Performed By: #### L IPNF, 15550-4 #### [facility] CLIA [id number] [address] [place] [address] [place] AST [Catalytic activity/Vol] 26 U/L Normal 13-35 [facility] Comment on above: Order Comment: Speci men Type: BLOOD SPECIMEN [facility] Address: [address] [place] [address] Performed By: #### L IPNF, 16937-6 #### [facility] CLIA [id number] [address] [place] [address] [place] Bilirubin [Mass/Vol] 0.4 mg/dL Normal 0.2-1.3 [facility] Comment on above: Order Comment: Speci men Type: BLOOD SPECIMEN [facility] Address: [address] [place] [address] Performed By: #### L IPNF, 31037-9 #### [facility] CLIA [id number] [address] [place] [address] [place] Calcium [Mass/Vol] 9.7 mg/dL Normal 8.5-10.2 [facility] Comment on above: Order Comment: Speci men Type: BLOOD SPECIMEN [facility] Address: [address] [place] [address] Performed By: #### L IPNF, 78813-0 #### [facility] CLIA [id number] [address] [place] [address] [place] Chloride [Moles/Vol] 99 mmol/L Normal 98-107 [facility] Comment on above: Order Comment: Speci men Type: BLOOD SPECIMEN [facility] Address: [address] [place] [address] Performed By: #### L IPNF, 05310-1 #### [facility] CLIA [id number] [address] [place] [address] [place] CO2 [Moles/Vol] 26 mmol/L Normal 22-30 [facility] Comment on above: Order Comment: Speci men Type: BLOOD SPECIMEN [facility] Address: [address] [place] [address] Performed By: #### L IPNF, 91306-5 #### [facility] CLIA [id number] [address] [place] [address] [place] Creatinine [Mass/Vol] 1.21 mg/dL High 0.58-0.96 [facility] Comment on above: Order Comment: Speci men Type: BLOOD SPECIMEN [facility] Address: [address] [place] [address] Performed By: #### L IPNF, 79648-4 #### [facility] CLIA [id number] [address] [place] [address] [place] Creatinine and Glomerular filtration rate.predicted panel (S/P/Bld) 48 mL/min/1.73m??? Low >=60 [facility] Comment on above: Order Comment: Mark elizabeth Type: BLOOD SPECIMEN [facility] Address: [address] [place] [address] Result Comment: Naz mated Glomerular Filtration Rate (eGFR) is calculated using the 2020 CKD-EPI creatinine equation. This equation utilizes serum creatinine, sex, and age as parameters. The creatinine assay has traceable calibration to isotope dilution-mass spectrometry. Refer to KDIGO guidelines for clinical interpretation. In patients with unstable renal function, e.g. those with acute kidney injury, the eGFR may not accurately reflect actual GFR. Performed By: #### L NITA, 29334-5 #### [facility] CLIA [id number] [address] [place] [address] [place] Glucose [Mass/Vol] 74 mg/dL Normal 74-99 [facility] Comment on above: Order Comment: Mark elizabeth Type: BLOOD SPECIMEN [facility] Address: [address] [place] [address] Result Comment: The [place] Diabetes [employer] (ADA) provides guidance for cutoff values for fasting glucose and random glucose. The ADA defines fasting as no caloric intake for at least 8 hours. Fasting plasma glucose results between 100 to 125 mg/dL indicate increased risk for diabetes (prediabetes). Fasting plasma glucose results greater than or equal to 126 mg/dL meet the criteria for diagnosis of diabetes. In the absence of unequivocal hyperglycemia, results should be confirmed by repeat testing. In a patient with classic symptoms of hyperglycemia or hyperglycemic crisis, random plasma glucose results greater than or equal to 200 mg/dL meet the criteria for diagnosis of diabetes. Reference: Standards of Medical Care in Diabetes 2016, [place] [employer]. Diabetes Care. 2016.39(Suppl 1). Performed By: #### L NITA, 17157-7 #### [facility] CLIA [id number] [address] [place] [address] [place] Potassium [Moles/Vol] 4.6 mmol/L Normal 3.7-5.1 [facility] Comment on above: Order Comment: Speci men Type: BLOOD SPECIMEN [facility] Address: [address] [place] [address] Performed By: #### L IPNF, 57013-2 #### [facility] CLIA [id number] [address] [place] [address] [place] Protein [Mass/Vol] 7.3 g/dL Normal 6.3-8.0 [facility] Comment on above: Order Comment: Speci men Type: BLOOD SPECIMEN [facility] Address: [address] [place] [address] Performed By: #### L IPNF, 30668-9 #### [facility] CLIA [id number] [address] [place] [address] [place] Sodium [Moles/Vol] 138 mmol/L Normal 136-144 [facility] Comment on above: Order Comment: Speci men Type: BLOOD SPECIMEN [facility] Address: [address] [place] [address] Performed By: #### L IPNF, 93694-7 #### [facility] CLIA [id number] [address] [place] [address] [place] Urea nitrogen [Mass/Vol] 15 mg/dL Normal 7-21 [facility] Comment on above: Order Comment: Speci men Type: BLOOD SPECIMEN [facility] Address: [address] [place] [address] Performed By: #### L IPNF, 25637-0 #### [facility] CLIA [id number] [address] [place] [address] [place] HCV Ab Ser Qlon 04-05-2024 HCV Ab Ql (S) Negative Normal Negative [facility] Comment on above: Order Comment: Speci men Type: BLOOD SPECIMEN [facility] Address: [address] [place] [address] Result Comment: The result suggests no evidence of active infection with Hepatitis C virus. Should recent infection be suspected, repeat testing may be considered 4-6 weeks after this draw. Performed By: #### L NITA, 95367-8 #### [facility] CLIA [id number] [address] [place] [address] OF [facility] LIPID PANEL, NONFASTINGon Cholesterol [Mass/Vol] 233 mg/dL High <200 [facility] Comment on above: Order Comment: Mark elizabeth Type: BLOOD SPECIMEN [facility] Address: [address] [place] [address] Result Comment: <200 mg/dL, Desirable 200-239 mg/dL, Borderline high >239 mg/dL, High Performed By: #### L NITA, 32378-1 #### [facility] CLIA [id number] [address] [place] [address] [place] HDL CHOLESTEROL, NF 68 mg/dL Normal >39 [facility] Comment on above: Order Comment: Mark elizabeth Type: BLOOD SPECIMEN [facility] Address: [address] [place] [address] Result Comment: 40-5 9 mg/dL, Acceptable >59 mg/dL, High: Negative risk factor for coronary heart disease <40 mg/dL, Low: Positive risk factor for coronary heart disease Performed By: #### L NITA, 85299-7 #### [facility] CLIA [id number] [address] [place] [address] [place] LDL CHOLESTEROL, NF 141 mg/dL High <100 [facility] Comment on above: Order Comment: Mark elizabeth Type: BLOOD SPECIMEN [facility] Address: [address] [place] [address] Result Comment: <100 mg/dL, Optimal 100-129 mg/dL, Near optimal/above optimal 130-159 mg/dL, Borderline high 160-189 mg/dL, High >189 mg/dL, Very high Secondary prevention optimal LDL Cholesterol levels are recommended to be < 70 mg/dL Performed By: #### L NITA, 17855-5 #### [facility] CLIA [id number] [address] [place] [address] [place] LDL/HDL RATIO, NF 2.07 mg/dL Normal <2.54 [facility] Comment on above: Order Comment: Speci men Type: BLOOD SPECIMEN [facility] Address: [address] [place] [address] Result Comment: Refe rence: 1. National Cholesterol Education Program ATP III Guideline At-A-Glance Quick Desk Reference: National Heart, Lung, and Blood [place]. National Institutes of Health. 2001: NIH Publication No. 01-3305. 2. An International Atherosclerosis Society position paper: global recommendations for the management of dyslipidemia: executive summary, Atherosclerosis. 2014: 232(2):410-413. Performed By: #### L NITA, 49339-9 #### [facility] CLIA [id number] [address] [place] [address] [place] NON HDL CHOL, NF 165 mg/dL High <130 [facility] Comment on above: Order Comment: Speci glenn Type: BLOOD SPECIMEN Ordering Facility: [facility] Address: [address] [place] [address] Result Comment: <130 mg/dL, Optimal 130-159 mg/dL, Near optimal/above optimal 160-189 mg/dL, Borderline high 190-219 mg/dL, High >219 mg/dL, Very high Secondary prevention optimal non HDL Cholesterol levels are recommended to be <100 mg/dL Performed By: #### L NITA, 15918-3 #### [facility] CLIA [id number] [address] [place] [address] [place] T CHOL/HDL RATIO NF 3.43 mg/dL Normal <5.10 [facility] Comment on above: Order Comment: Mark men Type: BLOOD SPECIMEN Ordering Facility[facility] Address: [address] [place] [address] Performed By: #### L NITA, 29697-7 #### [facility] CLIA [id number] [address] [place] [address] [place] TRIGLYCERIDES, NF 121 mg/dL Normal <150 [facility] Comment on above: Order Comment: Mark elizabeth Type: BLOOD SPECIMEN Ordering Facility[facility] Address: [address] [place] [address] Result Comment: <150 mg/dL, Normal 150-199 mg/dL, Borderline high 200-499 mg/dL, High >499 mg/dL, Very high Performed By: #### L IPNF, 60369-0 #### [facility] CLIA [id number] [address] [place] [address] [place] VLDL CHOLESTEROL, NF 24 mg/dL Normal <30 [facility] Comment on above: Order Comment: Mark elizabeth Type: BLOOD SPECIMEN Ordering [facility] Address: [address] [place] [address] Performed By: #### L IPNF, 83401-8 #### [facility] CLIA [id number] [address] [place] [address] [place] SHOULDER W/O CONTRAST RIG on 03-22-2024 CT SHOULDER W/O CONTRAST RIGHT ORIGINAL EXAMINATION: CT OF THE RIGHT SHOULDER WITHOUT CONTRAST, 03/21/2024 1:49 pm TECHNIQUE: CT of the right shoulder was performed without the administration of intravenous contrast. Multiplanar reformatted images are provided for review. Automated exposure control, iterative reconstruction, and/or weight based adjustment of the mA/kV was utilized to reduce the radiation dose to as low as reasonably achievable. HISTORY: ORDERING SYSTEM PROVIDED HISTORY: Reason for Exam: DISPLACED FRACTURE OF SURGICAL NECK OF RIGHT HUMOROUS FINDINGS: There is an acute comminuted impacted intra-articular humeral head/neck fracture. The AC joint is maintained. There is a type 2 acromial undersurface. There is no suspicious lytic or blastic osseous lesion. There is no aggressive periosteal reaction. There is a glenohumeral joint effusion. Limited evaluation on CT for tendon and nerve/vessel entrapment. Partially visualized lung zone is aerated. There is no evidence of solid or cystic soft tissue mass. Lower cervical spondylosis. Limited evaluation of the partially visualized thyroid gland on CT. IMPRESSION: Acute comminuted impacted intra-articular humeral head/neck fracture with glenohumeral joint effusion. Limited evaluation on CT for tendon, nerve and vessel entrapment. Additional incidental findings as above. Interpreted by: Kristina Alonzo Preliminary Report By: Kristina Alonzo Electronically signed By Kristina Alonzo Dictated Date: 03/22/2024 1:50:39 PM Prelim Date: 03/22/2024 2:02:19 PM Sign Date: 03/22/2024 2:02:19 PM Ordering Provider: CAROLEE HOWARD [facility] CNOVon 02-28-2024 CNOV Office Visit (UCWSTR ) -------- ADELINA DOMINGUEZ ([id number]) 1950 F Date Time Provider Department 02/28/24 8:45 AM JASS HICKEY [facility] During your visit today, we recorded the following information about you: Temperature Pulse Respiration Blood pressure 99.4 degrees 83/minute 18/minute 169/90 Weight 72.3 kg Jass Hickey APRN.STAFF INTERPRETER 02/28/2024 11:25 AM Addendum Subjective Female with complaints of pain in the right shoulder. Patient says she tripped over a box yesterday and fell. Patient does have bruising to the right upper arm. Patient is not on a blood thinner. Patient says she did hit her head blood very minimal and she did not pass out or have any headaches. Patient is not concerned about the she is more concerned about the shoulder. Patient says she has very limited range of motion due to the pain. Denies any numbness tingling or loss of feeling. The history is provided by the patient. No edi programmer was used. Fall Review of Systems Constitutional: Negative. Skin: Negative. Objective Physical Exam Constitutional: Appearance: Normal appearance. Pulmonary: Effort: Pulmonary effort is normal. Musculoskeletal: Arms: Comments: Full area marked above is where pain is located. Blue area marked above is where bruising is noted. No swelling no warmth no pain in the bruised area. No pain in the clavicle. Neurological: Mental Status: She is alert. 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 meloxicam (MOBIC) 15 mg tablet (Patient not taking: Reported on 02/28/2024) psyllium husk (DAILY FIBER ORAL) Take 1 capsule by mouth once daily. 1-2 capsules daily (Patient not taking: Reported on 02/28/2024) diclofenac, EC, (VOLTAREN) 25 mg EC tablet Take 1 tablet by mouth as needed for pain. (Patient not taking: Reported on 01/27/2023) fluticasone (FLONASE) 50 mcg/actuation nasal spray Use 2 Sprays in each nostril as needed. (Patient not taking: Reported on 02/28/2024) Omeprazole Magnesium (PRILOSEC OTC) 20 mg ORAL TbEC as needed (Patient not taking: Reported on 02/28/2024) FAMILY HISTORY Problem Relation Age of Onset other (Other [Other]) Mother Crohn's Disease, osteoarthritis other (Other [Other]) Father CVA, Parkinsons, Dementia other (Other [Other]) Sister Renal failure; had kidney transplant Social History Tobacco Use Smoking status: Never Smokeless tobacco: Never Vaping Use Vaping status: Never Used Substance Use Topics Alcohol use: No Drug use: No ASSESSMENT/PLAN: 1. Pain - ICD9: 780.96, ICD10: R52 (primary diagnosis) - XR SHOULDER GENERAL 3V OR MORE AP/TRUE AP/OTHER RIGHT * * * * Physician Interpretation * * * * TITLE: XR SHLDR >/=3V AP/NADEGE AP/OTHR RT CLINICAL INDICATION: Status post fall with pain TECHNIQUE: 3 view radiographic study of the right shoulder COMPARISON: None FINDINGS: Acute, comminuted, impacted fracture of the right humeral neck with involvement of the greater and likely lesser tuberosities. Acromioclavicular joint intact. IMPRESSION IMPRESSION: Acute, comminuted, impacted fracture of the right humeral neck as described. Palliative Medicine Physician: SANDY Transcribe Date/Time: Feb 28 2024 9:27A Dictated by : KARY TNANER MD 2. Fracture - ICD9: 829.0, ICD10: T14.8XXA 3. Closed fracture of right shoulder, initial encounter - ICD9: 812.00, ICD10: S42.91XA Was placed to keep arm in place while patient transfers to the ER. Did call and speak with a physician in [place] [facility] about patient. Ortho on staff. Patient will go there Jass Hickey APRN.STAFF INTERPRETER Allergies As of Date: 02/28/2024 Noted Allergy Reaction AUGMENTIN (AMOXICILLIN-POT CLAVUL*09/24/2011 6 - Diarrhea BEXTRA (VALDECOXIB) 04/12/2005 5 - Intolerance Comments: Headache CLINDAMYCIN 08/20/2012 2 - Rash Comments: Systemic drug rash following tx. 2wks prior had been taking amoxil-done well in past. KETOPROFEN 04/12/2005 5 - Intolerance Comments: Headache MACROBID (NITROFURANTOIN MONOHYD/*04/03/2008 8 - GI Upset Comments: Headache, chills LODINE (ETODOLAC) 04/12/2005 5 - Intolerance Comments: Headache Date Reviewed: 02/28/2024 Reviewed by: Kiel Horn, IRINA - Fully Assessed Reason for Visit: Fall [218] Cmt: R shoulder and arm pain after falling x last night Pr (more content not included)... Normal [facility] Pati 02-28-2024 RAIMUNDON Telephone (RGFLB) -------- ADELINA DOMINGUEZ ([id number]) 1950 F Date Time Provider Department 02/28/24 JULIETTE BATISTA During your visit today, we recorded the following information about you: Bonnie Rg 02/28/2024 2:51 PM Signed Patient is requesting x-ray rt shoulder copied to a disk for clam picker 02/29/24 Juliette Batista PSS 02/28/2024 3:46 PM Signed CD READY FOR PSYCHOLOGY LECT[facility]ER AT [facility] Pt is aware Juliette Redd HUC 02/29/2024 2:55 PM Signed Patient seen at [facility]. Will follow up there. Allergies As of Date: 02/28/2024 Noted Allergy Reaction AUGMENTIN (AMOXICILLIN-POT CLAVUL*09/24/2011 6 - Diarrhea BEXTRA (VALDECOXIB) 04/12/2005 5 - Intolerance Comments: Headache CLINDAMYCIN 08/20/2012 2 - Rash Comments: Systemic drug rash following tx. 2wks prior had been taking amoxil-done well in past. KETOPROFEN 04/12/2005 5 - Intolerance Comments: Headache MACROBID (NITROFURANTOIN MONOHYD/*04/03/2008 8 - GI Upset Comments: Headache, chills LODINE (ETODOLAC) 04/12/2005 5 - Intolerance Comments: Headache Date Reviewed: 02/28/2024 Reviewed by: Kiel Horn, RN - Fully Assessed Reason for Visit: disk request [Other] Prescriptions as of 05/13/2024 - doxycycline (VIBRA-TABS) 100 mg tablet Take 1 tablet by mouth two times a day for 10 days. - OTC NUTRITIONAL SUPPLEMENT Balance of Nature - acetaminophen (TYLENOL EXTRA STRENGTH) 500 mg tablet Take 500 mg by mouth every 8 hours as needed. - Bacillus coagulan/calcium carb (DIGESTIVE ADVANTAGE PROBIOTIC ORAL) Take 1 capsule by mouth once daily. Problem List As Of Date 02/28/2024 Noted Resolved SCIATICA [M54.30] 04/28/2005 PAIN IN JOINT, LOWER LEG [M25.569] 07/13/2005 Chronic Sinusitis [J32.9] 03/09/2009 Encounter Status:Closed by BONNIE RG on 05/13/24 Normal [facility] ED NOTEon 02-28-2024 ED NOTE HNO ID: [id number] Author: KIEL HORN RN Service: Nursing Author Type: Registered Nurse Type: ED Notes Filed: 02/28/2024 12:34 Note Text: Pt discharged to home in stable condition. No noted distress - respirations equal and unlabored. AVS and medications reviewed with patient and family at bedside. Pt verbalized understanding and importance of follow up care. No questions for this RN at this time. Prescription(s) were given X2. [facility] ED NOTE HNO ID: [id number] Author: SPENCER LEONARD RN Service: Nursing Author Type: Registered Nurse Type: ED Notes Filed: 03/04/2024 10:57 Note Text: Emergency Services: ED Call Back Questionnaire SERVICE DATE: 02/28/2024 Are you feeling better? Yes Any questions about discharge instructions and follow-up care? No Were you able to make a follow up appointment? Yes Do you have any further questions? No Is there anything that we could have done differently to improve your ED visit? No SIGNATURE: Spencer Leonard RN PATIENT NAME: Adelina Dominguez DATE: March 04, 2024 TIME: 10:54 AM [facility] ED PROV NOTEon 02-28-2024 ED PROV NOTE HNO ID: [id number] Author: BAY MURRAY DO Service: Emergency Medicine Author Type: Physician Type: ED Provider Notes Filed: 02/28/2024 15:48 Note Text: ED Provider Note Patient Name: Adelina Dominguez : 1950 SERVICE DATE: 02/28/24 History Patient presents with: Arm Injury: Pt presents to ER from home for CC right arm/shoulder injury after tripping over a box yesterday. Had XR at today and referred to ED. HPI 73-year-old female PMH GERD, hypercholesterolemia presents today after a fall. Patient states that she went to an urgent care and was sent to the emergency room. States she sustained a mechanical fall after tripping over a box and landed on her right shoulder. Patient states that she is right-handed. Denies any weakness, numbness of her bilateral upper extremities. Does endorse pain in her right shoulder. Patient states she did hit her head but states that it was very minor. Has not had any headaches, nausea, vomiting since the incident earlier this morning. Family member at bedside states that patient is acting at baseline. Patient denies any headaches, nausea, vomiting. Denies any syncope, weakness weakness, chest pain, shortness of breath, chest pain, shortness of breath. Patient states that she is not on any blood thinners. 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 Lumbar facet arthropathy Positive colorectal cancer screening using Cologuard test 01/01/2023 PAST SURGICAL HISTORY Procedure Laterality Date NONE FAMILY HISTORY Problem Relation Age of Onset other (Other [Other]) Mother Crohn's Disease, osteoarthritis other (Other [Other]) Father CVA, Parkinsons, Dementia other (Other [Other]) Sister Renal failure; had kidney transplant Social History Tobacco Use Smoking status: Never Smokeless tobacco: Never Vaping Use Vaping status: Never Used Substance and Sexual Activity Alcohol use: No Drug use: No Sexual activity: Not on file Comment: ALLERGIES Allergen Reactions Augmentin [Amoxicil* Diarrhea Bextra [Valdecoxib] Intolerance Headache Clindamycin Rash Systemic drug rash following tx. 2wks prior had been taking amoxil-done well in past. Ketoprofen Intolerance Headache Macrobid [Nitrofura* GI Upset Headache, chills Lodine [Etodolac] Intolerance Headache Review of Systems Constitutional: Negative for fatigue and fever. Respiratory: Negative for cough and shortness of breath. Cardiovascular: Negative for chest pain and leg swelling. Physical Exam Vitals [02/28/24 1108] BP Pulse Temp Temp src Resp SpO2 Weight Height 152/81 80 36.7 ?C (98 ?F) Oral 16 99 % 72.1 kg (159 lb) -- Physical Exam Constitutional: General: She is not in acute distress. Appearance: She is not ill-appearing, toxic-appearing or diaphoretic. HENT: Head: Normocephalic. Nose: Nose normal. Mouth/Throat: Mouth: Mucous membranes are moist. Eyes: Pupils: Pupils are equal, round, and reactive to light. Cardiovascular: Rate and Rhythm: Normal rate and regular rhythm. Pulses: Normal pulses. Pulmonary: Effort: Pulmonary effort is normal. No respiratory distress. Breath sounds: No wheezing. Abdominal: Palpations: Abdomen is soft. Tenderness: There is no abdominal tenderness. There is no guarding. Musculoskeletal: Right lower leg: No edema. Left lower leg: No edema. Skin: Capillary Refill: Capillary refill takes less than 2 seconds. Neurological: Mental Status: She is alert. A: Airway intact B: Breath sounds intact bilaterally with good air movement C: +2 radial and DPs bilaterally GCS 15 Dull sensation intact in bilateral upper lower extremities. Patient strength intact bilateral upper and lower extremities. Head: Atraumatic, no cephalhematomas. Nontender palpation of maxillary and mandibular areas C-spine: Nontender palpation, no step-offs or deformities Eyes: PERRLA, no periorbital ecchymosis or edema Nose: No nasal septal hematomas Mouth: No fractured teeth, intraoral lacerations Chest: Nontender to palpation. No overlying ecchymosis or erythema. Abdomen: Nontender to palpation, soft in all quadrants. Pelvis: Stable, nontender to palpation Back/T/L-spine. Nontender to palpation, no step-offs or deformities. RUE: Tender palpation of right shoulder with limited ROM. Overlying ecchymosis appreciated. Elbow/wrist with full ROM and nontender LUE: Full range of motion, nontender to palpation, atraumatic RLE: Full range of motion, nontender to palpation, atraumatic LLE: Full range of motion, nontender to palpation, atraumatic Neuro: 5/5 BUE, BLE strength. Sensation intact BUE, BLE. General: In no acute distress, resting comfortably in bed Diagnostic Testing ED Labs Ordered and Reviewed - No data (more content not included)... Normal [facility] XR SHLDR >/=3V AP/NADEGE AP/OTH R RTon 02-28-2024 XR SHLDR >/=3V AP/NADEGE AP/OTHR RT * * *Final Report* * * DATE OF EXAM: Feb 28 2024 9:26AM WOX 5253 - XR SHLDR >/=3V AP/NADEGE AP/OTHR RT / PROCEDURE REASON: Pain * * * * Physician Interpretation * * * * TITLE: XR SHLDR >/=3V AP/NADEGE AP/OTHR RT CLINICAL INDICATION: Status post fall with pain TECHNIQUE: 3 view radiographic study of the right shoulder COMPARISON: None FINDINGS: Acute, comminuted, impacted fracture of the right humeral neck with involvement of the greater and likely lesser tuberosities. Acromioclavicular joint intact. IMPRESSION: Acute, comminuted, impacted fracture of the right humeral neck as described. Palliative Medicine [facility] Transcribe Date/Time: Feb 28 2024 9:27A Dictated by : KARY TANNER MD This examination was interpreted and the report reviewed and electronically signed by: KARY TANNER MD on Feb 28 2024 9:28AM EST [id number] Normal [facility] XR Shoulder - right 3 Viewso n 02-28-2024 IMPRESSION: Acute, comminuted, impacted fracture of the right humeral neck as described. Palliative Medicine Physician: [facility] Transcribe Date/Time: Feb 28 2024 9:27A Dictated by : KARY TANNER MD This examination was interpreted and the report reviewed and electronically signed by: KARY TANNER MD on Feb 28 2024 9:28AM EST DIVISION OF RADIOLOGY * * *Final Report* * * DATE OF EXAM: Feb 28 2024 9:26AM WOX 5253 - XR SHLDR >/=3V AP/NADEGE AP/OTHR RT / PROCEDURE REASON: Pain * * * * Physician Interpretation * * * * TITLE: XR SHLDR >/=3V AP/NADEGE AP/OTHR RT CLINICAL INDICATION: Status post fall with pain TECHNIQUE: 3 view radiographic study of the right shoulder COMPARISON: None FINDINGS: Acute, comminuted, impacted fracture of the right humeral neck with involvement of the greater and likely lesser tuberosities. Acromioclavicular joint intact. DIVISION OF RADIOLOGY Provider, [facility] - 02/28/2024 * * *Final Report* * * DATE OF EXAM: Feb 28 2024 9:26AM WOX 5253 - XR SHLDR >/=3V AP/NADEGE AP/OTHR RT / PROCEDURE REASON: Pain * * * * Physician Interpretation * * * * TITLE: XR SHLDR >/=3V AP/NADEGE AP/OTHR RT CLINICAL INDICATION: Status post fall with pain TECHNIQUE: 3 view radiographic study of the right shoulder COMPARISON: None FINDINGS: Acute, comminuted, impacted fracture of the right humeral neck with involvement of the greater and likely lesser tuberosities. Acromioclavicular joint intact. IMPRESSION IMPRESSION: Acute, comminuted, impacted fracture of the right humeral neck as described. Palliative Medicine Physician: [facility] Transcribe Date/Time: Feb 28 2024 9:27A Dictated by : KARY TANNER MD This examination was interpreted and the report reviewed and electronically signed by: KARY TANNER MD on Feb 28 2024 9:28AM EST [facility] Radiology Study observation (narrative) [facility] XR Shoulder - right 3 ViewsO rdered By: [facility] Provider on 02-28-2024 [facility] Comprehensive Metabolic Prof ilon 02-17-2023 Albumin [Mass/Vol] 3.7 g/dL Normal 3.2-5.[address] [facility] Comment on above: Performed By: #### L 500.4050 #### [facility] [address] [place], [address] Albumin/Globulin [Mass ratio] 1.0 {ratio} Normal 0.9-2.4 [facility] Comment on above: Performed By: #### L 500.4050 #### [facility] [address] [place], [address] ALK P 128 U/L High 45-117 [facility] Comment on above: Performed By: #### L 500.4050 #### [facility] [address] [place], [address] ALT [Catalytic activity/Vol] 23 U/L Normal 13-56 [facility] Comment on above: Performed By: #### L [id number] #### [facility] [address] [place], [address] AST [Catalytic activity/Vol] 20 U/L Normal 15-37 [facility] Comment on above: Performed By: #### L 500.4050 #### [facility] [address] [place], [address] Bilirubin [Mass/Vol] 0.50 mg/dL Normal 0.20-1.00 [facility] Comment on above: Result Comment: For patients on eltrombopag therapy, use of Dimension [place] TBIL is not recommended. Performed By: #### L 500.4050 #### [facility] [address] [place], [address] BUN/CRE 23.2 RATIO High 10-20 [facility] Comment on above: Performed By: #### L [id number] #### [facility] [address] [place], [address] CA,Total 9.3 mg/dL Normal 8.5-10.1 [facility] Comment on above: Performed By: #### L 500.4050 #### [facility] [address] [place], [address] Chloride [Moles/Vol] 106 mmol/L Normal 98-107 [facility] Comment on above: Performed By: #### L 500.4050 #### [facility] [address] [place], [address] CO2 [Moles/Vol] 30.0 mmol/L Normal 21.0-32.0 [facility] Comment on above: Performed By: #### L [id number] #### [facility] [address] [place], [address] Creatinine [Mass/Vol] 0.95 mg/dL Normal 0.55-1.02 [facility] Comment on above: Result Comment: The validity of the calculated GFR GFRAA in patients over 70 years has not been determined. Clinical correlation is essential. Performed By: #### L 500.4050 #### [facility] [address] [place], [address] EST GFR - AA 75 mL/min Normal >60 [facility] Comment on above: Result Comment: Afri can [place] GFR Calc Performed By: #### L 500.4050 #### [facility] [address] [place], [address] GAP 3 Low 5-15 [facility] Comment on above: Performed By: #### L 500.4050 #### [facility] [address] [place], [address] GFR/1.73 sq M.predicted among non-blacks MDRD (S/P/Bld) [Vol rate/Area] 62 mL/min/{1.73_m2} Normal >60 [facility] Comment on above: Result Comment: Non- GFR Calc Performed By: #### L 500.4050 #### [facility] [address] [place], [address] Globulin (S) [Mass/Vol] 3.6 g/dL Normal 2.2-4.2 [facility] Comment on above: Performed By: #### L [id number] #### [facility] [address] [place], [address] Glucose [Mass/Vol] 77 mg/dL Normal 74-[address] [facility] Comment on above: Performed By: #### L [id number] #### [facility] [address] [place], [address] Potassium [Moles/Vol] 4.1 mmol/L Normal 3.5-5.1 [facility] Comment on above: Performed By: #### L [id number] #### [facility] [address] [place], [address] Sodium [Moles/Vol] 139 mmol/L Normal 136-[address] [facility] Comment on above: Performed By: #### L 500.4050 #### [facility] [address] [place], [address] T PROT 7.3 g/dL Normal 6.4-8.2 [facility] Comment on above: Performed By: #### L 500.4050 #### [facility] [address] [place], [place], [address] Urea nitrogen [Mass/Vol] 22 mg/dL High -18 [facility] Comment on above: Performed By: #### L 500.4050 #### [facility] [address] [place], [address] COLOGUARDon 01-11-2023 Noninvasive colorectal cancer DNA and occult blood screening Ql (Stl) Positive Abnormal Negative [facility] No Panel Informationon 01-10 [facility] NORA SCREENINGon 01-06-2023 [facility] Orthopedic Visit Reporton Orthopedic Visit Report [facility] [address] [place] [address] [address] [place] [address] OFFICE VISIT Date of Service: 01/02/23 MR#: [id number] Acct: [id number] Name: ADELINA DOMINGUEZ Rep #: [id number] : 1950 Provider: MARLEEN Wilson Age/Sex: 72/F Location: [facility] Status: Signed Intake Vital Signs 11/05/22 08:43 Height 5 ft 3 in Intake Visit Reasons: LEFT KNEE Chief Complaint: left knee pain Allergies clindamycin Allergy (Intermediate, Verified 11/05/22 08:46) unknown nitrofurantoin [From Macrobid] Allergy (Intermediate, Verified 11/05/22 08:46) unknown [facility] Medical History (Updated 11/11/22 @ 08:29 by Laura Thurman) Cerumen impaction Social History Smoking Status: Never smoker substance use type: does not use HPI LEFT KNEE Details: Parts of this documentation were recorded by a scribe, this documentation accurately reflects the service provided and the decisions made by me, MARLEEN Wilson 01/03/23 2622. ADELINA DOMINGUEZ is a 72 year old F here today for continued left knee pain. She had a steroid injection on 11/11/2022 which helped for approximately a month and a half but her pain has now returned. She points the pain being medial and mid anterior knee. She denies locking, catching or numbness and tingling. Denies any past surgeries of the left knee. She has been icing and taking clio-ziy-nhtghuj anti-inflammatories as needed. She would like to discuss further options. ROS Const Denies chills and Denies fever(s) Card Denies dyspnea Resp Denies dyspnea GI Denies nausea and Denies vomiting Musc Reports abnormal gait (antalgic gait), Reports arthralgias, Reports joint swelling, Reports limited range of motion, Denies numbness and Denies tingling Skin/Breast Denies rash Neuro Yes abnormal gait (antalgic gait), No numbness and No tingling Ortho Exam General General: Yes no acute distress Neurologic: Yes alert and Yes oriented x3 Psychologic: Yes reasonable and appropriate Right Knee Patella Translation: 1 Left Knee Skin/Wound: No ecchymosis, No erythema and No swelling Homans Sign: No Knee ROM: Yes ROM-Extension -20 to 0 and No ROM-Flexion 0-140 (95) Examination: Yes med jt line tenderness, No Lat jt line tenderness, Yes Pain with flexion, No Westley's Test, No TTP Patellar tendon, Yes TTP Pes Anserine and No Illiotibial band tenderness Stability: NML: Anterior Drawer, NML: Posterior Drawer and NML: Varus 30 and 1+: Valgus 30 Apprehension with Lateral Translation: No Patella Translation: 1 Patella Grind: No Coding Level of Care Code Off vis,est,level 3 Diagnoses Primary osteoarthritis of left knee M17.12 Assessment and Plan Assessment and Plan (1) Primary osteoarthritis of left knee: Status: Acute Medications: New meloxicam Do not take in conjunction with other NSAIDs. Tylenol is okay. 15 mg PO DAILY 30 tabs 0RF Pain M17.12 - Unilateral primary osteoarthritis, left knee Discontinued diclofenac sodium Discontinued Reason: Order Changed 25 mg PO TID PRN 30 tabs 0RF pain M25.562 - Pain in left knee Plan Patient presents to the office today for continued left knee pain. She had a steroid injection about a month and a half ago and her pain has returned and she would like to discuss other options. We discussed the osteoarthritis of her left knee and reviewed the x-ray. Discussed other options for treatment of OA. Patient would like to start with a brace, meloxicam and a topical cream. Patient was fitted in an OA web reaction brace and shown how to use it. She demonstrated understanding. She was sent in a prescription for meloxicam. Discussed she should take it once a day with food and not in conjunction with other NSAIDs. Tylenol is okay for breakthrough pain. Sent in a prescription for topical cream at [facility]. The patient should try these modalities over the next 2 to 3 weeks and should call if she is still having pain. Discussed that we can try viscosupplementation. She should call the office if she would like to proceed with viscosupplementation. She should follow-up as needed if pain, swelling, numbness, tingling or other associated signs or symptoms develop. All the patient's questions were answered. She is in agreement with the plan. 01/03/23 1529 Date Janet Benitez Signature: Date (if applicable) CC: Normal [facility] CBC panel Auto (Bld)on 12-23 Erythrocyte distribution width (RBC) [Ratio] 13.3 % 11.5 - 15.0 % [facility] Hematocrit (Bld) [Volume fraction] 48.0 % High 36.0 - 46.0 % [facility] Hemoglobin (Bld) [Mass/Vol] 14.9 g/dL 11.5 - 15.5 g/dL [facility] MCH (RBC) [Entitic mass] 27.6 pg 26.0 - 34.0 pg [facility] MCHC (RBC) [Mass/Vol] 31.0 g/dL 30.5 - 36.0 g/dL [facility] MCV (RBC) [Entitic vol] 88.9 fL 80.0 - 100.0 fL [facility] Nucleated RBC (Bld) [#/Vol] <0.01 k/uL [facility] Platelet mean volume (Bld) [Entitic vol] 10.9 fL 9.0 - 12.7 fL [facility] Platelets (Bld) [#/Vol] 227 10*3/uL 150 - 400 k/uL [facility] RBC (Bld) [#/Vol] 5.40 10*6/uL High 3.90 - 5.2 0 m/uL [facility] WBC (Bld) [#/Vol] 5.99 10*3/uL 3.70 - 11. 00 k/uL [facility] Comprehensive metabolic 2000 panelon 12-23-2022 Albumin [Mass/Vol] 4.5 g/dL 3.9 - 4.9 g/dL [facility] ALP [Catalytic activity/Vol] 118 U/L 34 - 123 U/L [facility] ALT [Catalytic activity/Vol] 16 U/L 7 - 38 U/L [facility] Anion gap [Moles/Vol] 10 mmol/L 9 - 18 mmol/L [facility] AST [Catalytic activity/Vol] 21 U/L 13 - 35 U/L [facility] Bilirubin [Mass/Vol] 0.5 mg/dL 0.2 - 1.3 mg/dL [facility] Calcium [Mass/Vol] 9.6 mg/dL 8.5 - 10. 2 mg/dL [facility] Chloride [Moles/Vol] 104 mmol/L 97 - 105 mmol/L [facility] CO2 [Moles/Vol] 26 mmol/L 22 - 30 mmol/L [facility] Creatinine [Mass/Vol] 0.90 mg/dL 0.58 - 0.96 mg/dL [facility] Estimated Glomerular Filtration Rate 69 mL/min/1.73m >=60 mL/min/1.73m [facility] Glucose [Mass/Vol] 90 mg/dL 74 - 99 mg/dL [facility] Potassium [Moles/Vol] 4.7 mmol/L 3.7 - 5.1 mmol/L [facility] Protein [Mass/Vol] 6.9 g/dL 6.3 - 8.0 g/dL [facility] Sodium [Moles/Vol] 140 mmol/L 136 - 144 mmol/L [facility] Urea nitrogen [Mass/Vol] 19 mg/dL 7 - 21 mg/dL [facility] Lipid 1996 panelon 3 Cholesterol [Mass/Vol] 251 mg/dL High <200 mg/dL [facility] Cholesterol in HDL [Mass/Vol] 67 mg/dL >39 mg/dL [facility] Cholesterol in LDL [Mass/Vol] 166 mg/dL High <100 mg/dL [facility] Cholesterol in LDL/Cholesterol in HDL [Mass ratio] 2.48 {ratio} <2.54 [facility] Cholesterol in VLDL [Mass/Vol] 18 mg/dL <30 mg/dL [facility] Cholesterol non HDL [Mass/Vol] 184 mg/dL High <130 mg/dL [facility] Cholesterol.total/ Cholesterol in HDL [Mass ratio] 3.75 {ratio} <5.10 [facility] Fasting Time 15 hrs [facility] Triglyceride [Mass/Vol] 91 mg/dL <150 mg/dL [facility] Knee 4 or More Viewson 11-11 Knee 4 or More Views [facility] [address] [place] [address] Knee 4 or More Views MR#: [id number] Acct: [id number] Name: ADELINA DOMINGUEZ Rep #: [id number] : 1950 F 72 From: Tc Muñoz MD PCP: Dr. Joana Nye MD Status: DEP AMB Study: Knee 4 or More Views Date of Exam: 11/11/22 Exam# [id number] Ordering Dr: Adelso Montague DO EXAM: XR LEFT KNEE COMPLETE, 4 OR MORE VIEWS CLINICAL INDICATION: pain TECHNIQUE: Four or more views of the left knee. COMPARISON: No relevant prior studies available. FINDINGS: BONES/JOINTS: There is narrowing of the medial knee joint. No acute fracture. No subluxation. Normal alignment. No sclerotic or destructive changes observed. SOFT TISSUES: Unremarkable. No soft tissue swelling or gas. No radiopaque foreign body. RAD/Knee 4 or More Views IMPRESSION: Mild degenerative changes with narrowing of the medial knee joint. There is no acute osseous abnormality. Electronically Signed: Tc Muñoz MD at 22:13 EDT , CC: Dr. Adelso Montague DO; Dr. Joana Nye MD Palliative Medicine Physician: Signed Normal [facility] Orthopedic Visit Reporton Orthopedic Visit Report [facility] [address] [place] [address] [address] [place] [address] OFFICE VISIT Date of Service: 11/11/22 MR#: [id number] Acct: [id number] Name: ADELINA DOMINGUEZ Rep #: [id number] : 1950 Provider: Dr. Adelso oviedo DO Age/Sex: 72/F Location: [facility] Status: Signed Intake Intake Visit Reasons: LEFT KNEE Chief Complaint: left knee pain Accompanied by: Self Is patient in pain?: Yes Pain scale (1-10): 4 Allergies clindamycin Allergy (Intermediate, Verified 11/05/22 08:46) unknown nitrofurantoin [From Macrobid] Allergy (Intermediate, Verified 11/05/22 08:46) unknown Medications Saccharomyces boulardii 250 mg capsule (Daily Probiotic (S. boulardii)) 250 mg PO BID 04/23/21 [History Confirmed 11/11/22] omeprazole magnesium 20 mg tablet,delayed release (Prilosec OTC) 20 mg PO DAILY 04/23/21 [History Confirmed 11/11/22] diclofenac sodium 25 mg tablet,delayed release 25 mg PO TID PRN pain #30 tabs 11/11/22 [Rx Confirmed 11/11/22] PFSH Medical History (Updated 11/11/22 @ 08:29 by Laura Thurman) Cerumen impaction Social History Smoking Status: Never smoker substance use type: does not use HPI LEFT KNEE Details: Parts of this documentation were recorded by a scribe, this documentation accurately reflects the service provided and the decisions made by me, Dr. Adelso Montague DO 11/11/22 0742. ADELINA DOMINGUEZ is a 72 year old F here today for left knee pain that she started having last Monday. [facility] but wasn't able to have xrays because it was the weekend. She states that the pain started very sudden. She states that about 2 weeks before she did ride her recumbent bike but didnt have any pain after. She was given Diclofenac for the left knee which has somewhat helped with the pain. Denies any past surgery or injections of the knee. She has pain over the anterior knee with flexion and going up and down stairs. Denies any painful popping/clicking/locking . She did also try heat and cold which didnt help custodial. Ortho Exam General General: Yes no acute distress Neurologic: Yes alert and Yes oriented x3 Psychologic: Yes reasonable and appropriate Right Knee Patella Translation: 1 Left Knee Skin/Wound: Yes CDI, No ecchymosis, No erythema and No swelling Homans Sign: No Knee ROM: Yes ROM-Extension -20 to 0 and No ROM-Flexion 0-140 (98) Examination: Yes med jt line tenderness and No Westley's Test Stability: NML: Anterior Drawer, NML: Posterior Drawer, NML: Valgus 0, NML: Valgus 30, NML: Varus 0 and NML: Varus 30 Apprehension with Lateral Translation: No Patella Translation: 1 Patella Grind: No KNEE: prominent varicose veins mild synovial hypertrophy no patellar instability Office Procedures Ortho Injections Injections Yes Knee Left Details: Obtained consent for injection. Under sterile conditions, injected the patient's left knee with 1cc bupivacaine, 1cc lidocaine and 1cc depomedrol. The patient tolerated the injection well without any noted complication. Patient should call our office if redness develops, pain worsens or if they have any concerns. Office Meds Depo-Medrol Performing Provider: Adelso Montague DO Administered by: Adelso Montague DO on 11/11/22 08:29 Dose Route Admin Location Lot Number Expiration Date [facility] Manufactu rer 40 mg intra-articular left knee [id number] 08/20/24 6267-4077-59 [employer] Supplemental Info 11/11/2022 x-ray left knee: There is moderate medial joint space narrowing there is no significant spurring or destructive bone lesions there is no acute findings. 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 Personally reviewed x-rays. There is no obvious fracture, dislocation, or lucency noted. Patient educated that her ligaments are intact on exam and her meniscus feels smooth on exam. She does have arthritis of the left knee and she does have softening of the cartilage. She has flared the knee up. Treatment options are do nothing or steroid injection or continue with diclofenac. She wishes to proceed with the left knee steroid injection along with continuing NSAID. Will send another prescript (more content not included)... Normal [facility] Office Visit Reporton 2022 Office Visit Report [facility] [address] [place] [address] OFFICE VISIT Date of Service: 11/05/22 MR#: [id number] Acct: [id number] Patient: ADELINA DOMINGUEZ Rep #: [id number] : 1950 Provider: MARLEEN Griggs Age/Sex: 72/F Location: [facility] Status: Signed Intake Vital Signs 11/05/22 08:27 11/05/22 08:43 Height 5 ft 2.5 in 5 ft 3 in Weight: 160 lb BMI 28.3 BP 122/86 H Blood Pressure Location Lt brachial Position Sitting Respiration 16 Pulse 103 H Pulse Source Monitor Temp 99.3 F H Temp Source Temporal Pulse Oximetry (%) 97 Intake Visit Reasons: PAIN IN LFT KNEE Chief Complaint: pain in LT knee Accompanied by: Self Is patient in pain?: No Allergies clindamycin Allergy (Intermediate, Verified 11/05/22 08:46) unknown nitrofurantoin [From Macrobid] Allergy (Intermediate, Verified 11/05/22 08:46) unknown Medications Saccharomyces boulardii 250 mg capsule (Daily Probiotic (S. boulardii)) 250 mg PO BID 04/23/21 [History Confirmed 11/05/22] omeprazole magnesium 20 mg tablet,delayed release (Prilosec OTC) 20 mg PO DAILY 04/23/21 [History Confirmed 11/05/22] diclofenac sodium 25 mg tablet,delayed release 25 mg PO TID #20 tabs 11/05/22 [Rx Confirmed 11/05/22] PFSH Social History Smoking Status: Never smoker substance use type: does not use HPI HPI Chief Complaint: pain in LT knee Details: ADELINA DOMINGUEZ, is a 72 F who presents to the office today for left knee pain. She denies any injury. She states she has had left knee pain for about 8 days now. She states it hurts with walking. Bending. And with going up and down steps. She states that she went biking approximately 3 weeks ago and was able to bike without any pain. She denies any injuries or surgeries to the left knee. She does have a lot of arthritis in her hands but has never experienced knee pain. She takes ibuprofen [id number] for the discomfort and it helps a little bit. She denies any fever chills nausea or vomiting. Denies any warmth in the left leg. Denies any calf pain. ROS [facility] Musculoskeletal: Positive for abnormal gait and joint pain Neuro Neurology: Positive for abnormal gait Exam Const Other: Mrs. Dominguez appears healthy well-hydrated and well-nourished. She walks with an antalgic gait. HENMN Other: HEENT exam is unremarkable. Neck Other: Neck is supple without lymphadenopathy. Resp Other: Lungs are clear and equal bilaterally without wheeze rale or rhonchi. Cardio Other: Heart is regular rhythm with a rate of 103. Musc Other: Left knee is diffusely tender throughout there is pain with any flexion or extension or stressing of the medial and collateral ligaments. There is no erythema and no warmth. There is no sign at all of a joint infection. 2+ distal pulse good distal sensation the left calf is nontender to palpation she does still retain full range of motion but with discomfort. Skin Other: Skin is warm and dry and without rash Coding Level of Care Code Off vis,est,level 3 Diagnoses Left knee pain M25.562 Assessment and Plan Assessment and Plan (1) Left knee pain: Status: Acute Plan: I discussed x-rays with the patient. We do not have the capability of x-ray here today. I advised her to follow-up with an orthopedic surgeon. We talked about osteoarthritis and I suspect that may be the problem here. I reassured her that there is no joint infection. We talked about pain control. I will will prescribe diclofenac today. Medications: New diclofenac sodium 25 mg PO TID 20 tabs 0RF M25.562 - Pain in left knee 11/05/22 0936 Date Mora Benitez Signature: Date (if applicable) CC: Dr. Joana Nye MD Normal [facility] Urgent Care Visit Reporton 0 08-20-2022 Urgent Care Visit Report [facility] [address] [place] [address] OFFICE VISIT Date of Service: 08/20/22 MR#: [id number] Acct: [id number] Name: ADELINA DOMINGUEZ Rep #: [id number] : 1950 Provider: PATI solis Age/Sex: 71/F Location: [facility] Status: Signed with Addenda ADDENDUM by PATI Russell on 08/20/22 at 1153 Assessment and Plan Assessment and Plan (1) Cerumen impaction: Status: Acute Plan: OTC measures reviewed to assist. Medications: Changed From amoxicillin-pot clavulanate 875-125 mg (Augmentin) take with food 1 TAB PO BID 20 tabs 0RF 10 days To amoxicillin-pot clavulanate 875-125 mg take with food 1 TAB PO BID 10 days 20 tabs 0RF 08/20/22 1153 Date Casper Russell NP TITLE AGENT-C cc: Dr. Joana Nye MD * Signed Intake Vital Signs 05/01/21 10:12 08/20/22 11:35 Height 5 ft 2.5 in BP 116/78 Blood Pressure Location Lt brachial Position Sitting Respiration 14 Pulse 79 Pulse Source Monitor Temp 97.3 F L Temp Source Temporal Pulse Oximetry (%) 97 Oxygen Delivery Method room air Intake Visit Reasons: CONCERN FOR SINUS INFECTION Chief Complaint: Sinus pressure/congestion Night Baker Required: No Accompanied by: None Allergies clindamycin Allergy (Intermediate, Verified 08/20/22 11:36) unknown nitrofurantoin [From Macrobid] Allergy (Intermediate, Verified 08/20/22 11:36) unknown Medications Saccharomyces boulardii 250 mg capsule (Daily Probiotic (S. boulardii)) 250 mg PO BID 04/23/21 [History Confirmed 08/20/22] omeprazole magnesium 20 mg tablet,delayed release (Prilosec OTC) 20 mg PO DAILY 04/23/21 [History Confirmed 08/20/22] amoxicillin 875 mg-potassium clavulanate 125 mg tablet 1 tab PO BID 10 days #20 tabs 08/20/22 [Rx Confirmed 08/20/22] PFSH Social History Smoking Status: Never smoker substance use type: does not use HPI HPI Chief Complaint: Sinus pressure/congestion Details: ADELINA DOMINGUEZ, is a 71 F who presents to the office today for concerns regarding possible sinus infection. She states for the last two weeks noting sinus pressure and being plugged up. This is worsening. She has tried OTC measures such as Robitussin and nasal spray- Saline. She has used Tylenol, Ibuprofen, and Exedrin to assist. ROS Const Constitutional: Positive for headache(s) and abnormal sleep pattern (sleeping less- nasal congestion); No body ache, chills, fatigue, fever(s), decreased energy, weakness or change in appetite Eyes Eyes: No blurry vision, change in vision, double vision or discharge ENT ENT: Positive for ear or mastoid pain (left ear), ear pressure, hearing loss (muffled sound), dizziness/vertigo, nasal congestion, sinus pressure, sinus pain, post nasal drip, headache(s), facial pain and hoarseness; No ear discharge, tinnitus, nosebleed/epistaxis, nasal discharge, dental pain, difficulty swallowing, lip swelling, sore throat, tongue swelling or throat swelling Resp Respiratory: Positive for cough Cough: Yes productive; No change in phlegm color, chest congestion, hemoptysis, pain on inspiration, shortness of breath, pain with cough, stridor or wheezing Cardio Cardiology: No chest pain at rest, chest pain with exertion, shortness of breath, dyspnea on exertion or lightheadedness Gastro GI: No abdominal pain, change in bowel habits or difficulty swallowing Genitourinary-Female: No difficulty urinating, burning urination or painful urination Neuro Neurology: Positive for headache(s); No weakness Psych Psychiatric: Positive for abnormal sleep pattern (sleeping less- nasal congestion) and No change in appetite Endo Endocrine: No fatigue Aller/Imm Allergy/Immunologic: No lip swelling, throat swelling, tongue swelling or wheezing Exam Const General: cooperative, healthy appearing, comfortable and no acute distress Orientation: alert, awake and oriented x3 HENMT Head: normal to inspection and normocephalic Ears: hearing grossly normal bilaterally, external ears normal and TM's normal bilaterally Nose: external nose normal, nares normal and no nasal discharge Face and sinus: normal facial exam and sinus tenderness ethmoid and maxillary Mouth: oral mucosae normal, lip normal, tongue normal, oropharynx normal and moist mucous membranes Throat: posterior oropharynx normal, tonsils normal, uvula midline and no postnasal drainage Eyes General: appearance normal, both eyes and all related structures Neck Neck: normal visual inspection and no lymphadenopathy Carotids: normal carotid upstroke Lymphatic: no lymphadenopathy noted Chest Chest palpation inspection: normal inspection of the chest Resp Effort Inspection: normal respiratory e (more content not included)... Normal [facility] Clinical Summary: HMSPatient IDon 10-25-2019 AZEEM Bella [facility] Work Phone: Clinical Lists Update: Prelo ad Extendedon 10-23-2019 Tobacco smoking status NHIS Tobacco smoking status NHIS [facility] Work Phone: Clinical Summary: Scanned Hi story Summaryon 10-22-2019 comments about allergies Clindamycin, Macrobid [facility] Work Phone: Data entered by patient exercise frequency 5 days per week [facility] Work Phone: Data entered by patient exercise type walking [facility] Work Phone: data entered by patient, alcohol (ethanol or ETOH) use No [facility] Work Phone: data entered by patient, drug (of abuse) use No [facility] Work Phone: data entered by patient, Employer Name employed [facility] Work Phone: data entered by patient, exercise history Yes [facility] Work Phone: Data entered by patient, medication list prilosec-Unknown Rksrozeu-7-8 daily [facility] Work Phone: data entered by patient, mother's medical history Arthritis [facility] Work Phone: Data entered by patient, problem list I do not have any past medical illnesses or conditions [facility] Work Phone: data entered by patient, social history, current smoker never smoker [facility] Work Phone: data entered by patient, social history, marital status [facility] Work Phone: Denies Surgical History I have not had any surgeries [facility] Work Phone: father of patient is alive or [facility] Work Phone: father's medical history, comments Parkinsons [facility] Work Phone: Housing Type: apartment, house, long-term, trailer, none house [facility] [facility] unit size (asthma environmental history, housing) (from single family to don't know) 1 floor [facility] Work Phone: medical history of patient's brother(s) High blood pressure [facility] Work Phone: medical history of patient's sister ArthritisKidney disease [facility] Work Phone: mother of patient is alive or [facility] Work Phone: Number [facility] dependent [facility] Work Phone: Vital Signs Date Time Vital Sign Value Performing Clinician Facility 08-04-2024 10:59-0400 Body mass index (BMI) [Ratio] 30.28 kg/m2 Tianna Brand RAND BUTTER.STAFF INTERPRETER Work Phone: [facility] 08-04-2024 10:59-0400 Body temperature 97.81 [degF] Tianna Brand RAND BUTTER.STAFF INTERPRETER Work Phone: [facility] 08-04-2024 10:59-0400 Body weight 73.9 kg Tianna Brand RAND BUTTER.STAFF INTERPRETER Work Phone: [facility] 08-04-2024 10:59-0400 Diastolic blood pressure 84 mm[Hg] Tiannaanika Brand RAND BUTTER.STAFF INTERPRETER Work Phone: [facility] 08-04-2024 10:59-0400 Heart rate 88 /min Tiannaanika Brand RAND BUTTER.STAFF INTERPRETER Work Phone: [facility] 08-04-2024 10:59-0400 Respiratory rate 16 /min Tiannaanika Brand RAND BUTTER.STAFF INTERPRETER Work Phone: [facility] 08-04-2024 10:59-0400 SaO2% (BldA) [Mass fraction] 99 % Tianna Brand RAND [employer]TER.STAFF INTERPRETER Work Phone: [facility] 08-04-2024 10:59-0400 Systolic blood pressure 142 mm[Hg] Tianna Brand RAND [employer]TER.STAFF INTERPRETER Work Phone: [facility] 05-10-2024 10:23-0500 Body mass index (BMI) [Ratio] 29.1 kg/m2 Nohemi Clutter PA-C Work Phone: [facility] 05-10-2024 10:23-0500 Body temperature 98.4 [degF] Nohemi Clutter PA-C Work Phone: [facility] 05-10-2024 10:23-0500 Body weight 71 kg Nohemi Clutter PA-C Work Phone: [facility] 05-10-2024 10:23-0500 Diastolic blood pressure 63 mm[Hg] Nohemi Clutter PA-C Work Phone: [facility] 05-10-2024 10:23-0500 Heart rate 81 /min Nohemi Clutter PA-C Work Phone: [facility] 05-10-2024 10:23-0500 Respiratory rate 18 /min Nohemi Clutter PA-C Work Phone: [facility] 05-10-2024 10:23-0500 SaO2% (BldA) [Mass fraction] 99 % Nohemi Clutter PA-C Work Phone: [facility] 05-10-2024 10:23-0500 Systolic blood pressure 94 mm[Hg] Nohemi Clutter PA-C Work Phone: [facility] 04-05-2024 12:13-0500 Body mass index (BMI) [Ratio] 28.69 kg/m2 Tiffanie Barnhart RAND BUTTER.V BLOCK SAW OPERATOR Work Phone: [facility] 04-05-2024 12:13-0500 Body weight 70 kg Tiffanie Barnhart RAND BUTTER.V BLOCK SAW OPERATOR Work Phone: [facility] 04-05-2024 12:13-0500 Diastolic blood pressure 85 mm[Hg] Tiffanie Barnhart RAND BUTTER.V BLOCK SAW OPERATOR Work Phone: [facility] 04-05-2024 12:13-0500 Heart rate 82 /min Tiffanie Barnhart RAND BUTTER.V BLOCK SAW OPERATOR Work Phone: [facility] 04-05-2024 12:13-0500 Respiratory rate 16 /min Tiffaniejavy Barnhart RAND BUTTER.V BLOCK SAW OPERATOR Work Phone: [facility] 04-05-2024 12:13-0500 Systolic blood pressure 133 mm[Hg] Tiffaniejavy Barnhart RAND BUTTER.V BLOCK SAW OPERATOR Work Phone: [facility] 02-28-2024 08:49-0400 Body mass index (BMI) [Ratio] 29.63 kg/m2 Jass Hickey APRN.STAFF INTERPRETER Work Phone: [facility] 02-28-2024 08:49-0400 Body temperature 99.39 [degF] Jass Hickey APRN.STAFF INTERPRETER Work Phone: [facility] 02-28-2024 08:49-0400 Body weight 72.3 kg Jass Hickey APRN.STAFF INTERPRETER Work Phone: [facility] 02-28-2024 08:49-0400 Diastolic blood pressure 90 mm[Hg] Jass Hickey APRN.STAFF INTERPRETER Work Phone: [facility] 02-28-2024 08:49-0400 Heart rate 83 /min Jass Hickey APRN.STAFF INTERPRETER Work Phone: [facility] 02-28-2024 08:49-0400 Respiratory rate 18 /min Jass Hickey APRN.STAFF INTERPRETER Work Phone: [facility] 02-28-2024 08:49-0400 SaO2% (BldA) [Mass fraction] 98 % Jass Hickey APRN.STAFF INTERPRETER Work Phone: [facility] 02-28-2024 08:49-0400 Systolic blood pressure 169 mm[Hg] Jass Hickey APRN.STAFF INTERPRETER Work Phone: [facility] 01-27-2023 08:52-0400 Body height 156.2 cm Sarahy Rhodes PA-C Work Phone: [facility] 01-27-2023 08:52-0400 Body temperature 98.01 [degF] Sarahy Carmelo PA-C Work Phone: [facility] 01-27-2023 08:52-0400 Body weight 73.12 kg Sarahy Martinsburg PA-C Work Phone: [facility] 01-27-2023 08:52-0400 Diastolic blood pressure 80 mm[Hg] Sarahy Carmelo PA-C Work Phone: [facility] 01-27-2023 08:52-0400 Heart rate 87 /min Sarahy Carmelo PA-C Work Phone: [facility] 01-27-2023 08:52-0400 SaO2% (BldA) [Mass fraction] 99 % Sarahy Carmelo PA-C Work Phone: [facility] 01-27-2023 08:52-0400 Systolic blood pressure 136 mm[Hg] Sarahy Carmelo PA-C Work Phone: [facility] 12-09-2022 10:50-0400 Body temperature 98.01 [degF] Joana Nye MD Work Phone: [facility] 12-09-2022 10:50-0400 Body weight 72.12 kg Joana Nye MD Work Phone: [facility] 12-09-2022 10:50-0400 Diastolic blood pressure 78 mm[Hg] Joana Nye MD Work Phone: [facility] 12-09-2022 10:50-0400 Heart rate 64 /min Joana Nye MD Work Phone: [facility] 12-09-2022 10:50-0400 Respiratory rate 18 /min Joana Nye MD Work Phone: [facility] 12-09-2022 10:50-0400 SaO2% (BldA) [Mass fraction] 97 % Joana Nye MD Work Phone: [facility] 12-09-2022 10:50-0400 Systolic blood pressure 126 mm[Hg] Joana Nye MD Work Phone: [facility] NEGATED: Highlighted [id number] 14:54-0400 BMI (Body Mass Index) 25.84 kg/m2 Wendy [employer] CHARGER [facility] Work Phone: NEGATED: Highlighted [id number] 14:54-0400 Body weight 68.04 kg Wendy [employer] CHARGER [facility] Work Phone: NEGATED: Highlighted [id number] 14:54-0400 Body weight 68 kg Wendy [employer] CHARGER [facility] Work Phone: NEGATED: Highlighted [id number] 14:54-0400 Height 162.56 cm Wendy [employer] CHARGER [facility] Work Phone: NEGATED: Highlighted [id number] 14:54-0400 Height 163 cm Wendy [employer] CHARGER [facility] Work Phone: Encounters Encounter Date Encounter Type Care Provider Facility Start: 08-04-2024 End: 08-04-2024 ambulatory JOANA NYE Facility:[facility] Start: 08-04-2024 End: 08-04-2024 Patient encounter procedure Tianna Brand APRN.STAFF INTERPRETER Work Phone: [facility] Comment on above: Rhinosinusitis (Prim mello Dx) Start: 05-10-2024 End: 05-10-2024 ambulatory JOANA NYE Facility:[facility] Start: 05-10-2024 End: 05-10-2024 Office outpatient visit 25 minutes Nohemi Lobo PA-C Work Phone: [facility] Comment on above: Acute recurrent sinu sitis, unspecified location (Primary Dx) Start: 04-05-2024 End: 04-05-2024 ambulatory [facility] Facility:[facility] Start: 04-05-2024 End: 04-05-2024 Office outpatient visit 25 minutes Tiffanie Barnhart APRN.CNS Work Phone: [facility] Comment on above: Hypercholesteremia ( Primary Dx); Other closed nondisplaced fracture of proximal end of right humerus with routine healing, subsequent encounter; Positive colorectal cancer screening using Cologuard test; Vitamin D deficiency; Encounter for immunization; Screening for depression; Encounter for screening examination for other mental health and behavioral disorders; Special screening examination for viral disease Start: 03-21-2024 End: 03-21-2024 ambulatory CAROLEE HOWARD MD Facility:[facility] Start: 03-21-2024 End: 03-21-2024 Patient encounter procedure CAROLEE HOWARD MD [facility] Start: 02-28-2024 End: 05-13-2024 Telephone encounter Juliette Batista Radiology Comment on above: disk request Start: 02-28-2024 End: 02-28-2024 Emergency department patient visit JOANA NYE Facility:[facility] Start: 02-28-2024 End: 02-28-2024 Subsequent hospital visit by physician [facility] Work Phone: Radiology Comment on above: Pain [R52] Start: 02-28-2024 End: 02-28-2024 ambulatory JOANA NYE Facility:[facility] Start: 02-28-2024 End: 02-28-2024 Patient encounter procedure Jass Hickey APRN.STAFF INTERPRETER Work Phone: [facility] Comment on above: Pain (Primary Dx); Fracture; Closed fracture of right shoulder, initial encounter Start: 02-14-2024 End: 02-19-2024 ambulatory Joana Nye MD Work Phone: Internal Medicine [place] [id number] Start: 02-17-2023 End: 02-17-2023 ambulatory Joana Nye Facility:[facility] Start: 01-27-2023 Telephone encounter Sarahy solis PA-C Work Phone: General Surgery Comment on above: 02-24-2023 ASC Colon Start: 01-27-2023 End: 01-27-2023 Patient encounter procedure Sraahy Rhodes PA-C Work Phone: General Surgery Comment on above: Positive colorectal cancer screening using Cologuard test Start: 01-16-2023 Telephone encounter Katherine Vera APRN.RAIMUNDO Work Phone: [facility] Start: 01-10-2023 End: 01-10-2023 Subsequent hospital visit by physician Bone Density [facility] Work Phone: Radiology Comment on above: Screening for osteop orosis [Z13.820] Start: 01-09-2023 Documentation procedure Mammog andrés Coordinator [facility] Start: 01-09-2023 Letter encounter Mammography Coordinator [facility] Department Start: 01-02-2023 End: 01-02-2023 ambulatory Joana Nye Facility:[facility] Start: 12-09-2022 End: 12-09-2022 Office outpatient visit 25 minutes Joana Nye MD Work Phone: [facility] Comment on above: Hypercholesteremia ( Primary Dx); DDD (degenerative disc disease), lumbar; Primary osteoarthritis involving multiple joints; Screening for osteoporosis; Asymptomatic menopause; Encounter for screening mammogram for breast cancer; Encounter for screening for diabetes mellitus; Screening, lipid; Colon cancer screening; Impacted cerumen of left ear Start: 11-11-2022 End: 11-11-2022 ambulatory Adelso Montague Facility:[facility] Start: 11-05-2022 End: 11-05-2022 ambulatory Mora HAWLEY Facility:[facility] Start: 08-20-2022 End: 08-20-2022 ambulatory Joana Nye Facility:[facility] Start: 08-20-2020 End: 08-20-2020 Patient encounter procedure DESIREE Jessika RONNELL [facility] Start: 10-25-2019 End: 10-25-2019 Patient encounter procedure Jake Jones MD Work Phone: [facility] Work Phone: Start: 10-25-2019 End: 10-25-2019 Pt evaluation Jake Jones MD Work Phone: [facility] Work Phone: Procedures Date Procedure Procedure Detail Performing Clinician Start: 04-05-2024 Adult depression screening assessment Tiffaniejavy Barnhart APRN.V BLOCK SAW OPERATOR Work Phone: Start: 04-05-2024 Lipid 1996 panel - S kashmir or Plasma Nohemi Lobo PA-C Work Phone: Start: 02-28-2024 Radex shoulder compl ete minimum 2 views Jass Hickey RAND [employer]TER.STAFF INTERPRETER Work Phone: Start: 01-10-2023 Dxa bone density tayo dy 1/> sites axial skel Joana Nye MD Work Phone: Start: 01-06-2023 Mammography Mammograph y Coordinator Start: 01-01-2023 COLOGUARD Joana rodriguez MD Work Phone: Start: 12-23-2022 Lipid 1996 panel - S kashmir or Plasma Sarahy MALAGONC Work Phone: Start: 10-25-2019 End: 10-25-2019 Blood pressure screening not performed - reason not given Jake Jones MD Work Phone: Start: 10-25-2019 End: 10-25-2019 BMI outside of normal parameters - no follow-up plan/reason not given Jake Jones MD Work Phone: Start: 10-25-2019 End: 10-25-2019 Documentation of current medications Jake Jones MD Work Phone: Start: 10-25-2019 End: 10-25-2019 Pain assessment documented as positive - follow-up documented Jake Jones MD Work Phone: Start: 10-25-2019 End: 10-25-2019 Radex shoulder complete minimum 2 views Jake Jones MD Work Phone: Start: 10-25-2019 End: 10-25-2019 Tobacco non-user Jake Jones MD Work Phone: NEGATED: Highlighted rowStart: 10-25-2019 End: 10-25-2019 Documentation of current medications Wendy Cano LPN Plan of Treatment Date Care Activity Detail Author Start: 04-05-2029 Lipid panel Lipid Screening [facility] Start: 12-24-2027 Lipid 1996 panel - Serum or Plasma Lipid Screening [facility] Start: 12-24-2027 Lipid panel Lipid Screening [facility] Start: 12-24-2027 LIPID SCREEN LIPID SCREEN [facility] Start: 09-26-2027 RSV Vaccine (1 - 1-d ose 75+ series) RSV Vaccine (1 - 1-dose 75+ series) [facility] Start: 04-05-2027 Diabetes Screening Diabetes Screenin g [facility] Start: 01-01-2026 COLOGUARD (FIT-DNA) COLOGUARD (FIT-D NA) [facility] Start: 01-01-2026 COLORECTAL CANCER SCREENING COLORECTAL CANCER SCREENING [facility] Start: 01-01-2026 Screening for malign ant neoplasm of colon [facility] Start: 12-23-2025 DIABETES SCREEN DIABETES SCREEN [facility] Start: 12-23-2025 Diabetes Screening Diabetes Screenin g [facility] Start: 04-21-2025 End: 04-21-2025 Patient encounter procedure 04/21/2025 8:00 AM EST Office Visit [facility] [address] [place], [place] [id number] Joana Nye MD [address] [place] [address] Annual exam [facility] Comment on above: Annual exam Start: 04-05-2025 Anxiety Screening Anxiety Screening [facility] Start: 04-05-2025 Depression Screening Depression Scre ening [facility] Start: 11-18-2024 Influenza vaccination Influenza Vacc ine (#1) [facility] Comment on above: Postponed from 01/20 (Declined at this time) Start: 11-03-2024 Covid-19 Vaccine ( season) Covid-19 Vaccine () [facility] Comment on above: Postponed from 01/20 (Declined at this time) Start: 11-03-2024 Pneumococcal Vaccine : 50+ (1 of 1 - PCV) Pneumococcal Vaccine: 50+ (1 of 1 - PCV) [facility] Comment on above: Postponed from 09/25 (Declined at this time) Start: 11-03-2024 Pneumococcal Vaccine : 65+ (1 of 1 - PCV) Pneumococcal Vaccine: 65+ (1 of 1 - PCV) [facility] Comment on above: Postponed from 09/25 (Declined at this time) Start: 07-16-2024 End: 07-16-2024 Patient encounter procedure 07/16/2024 5:40 PM EST Office Visit [facility] [address] [place] [address] Joana Nye MD [address] [place], [place] [id number] annual exam [facility] Comment on above: annual exam Start: 05-22-2024 Advance Directive Discussion Advance Directive Discussion [facility] Start: 04-05-2024 End: 07-05-2024 25-hydroxyvitamin D3 [Mass/volume] in Serum or Plasma [facility] Comment on above: Expected: 04/05/2024 , Expires: 07/05/2024 Start: 04-05-2024 End: 07-05-2024 Comprehensive metabolic 2000 panel - Serum or Plasma [facility] Comment on above: Expected: 04/05/2024 , Expires: 07/05/2024 Start: 04-05-2024 End: 07-05-2024 Hepatitis C virus Ab [Presence] in Serum [facility] Work Phone: Comment on above: Expected: 04/05/2024 , Expires: 07/05/2024 Start: 04-05-2024 End: 07-05-2024 LIPID PANEL, NONFASTING [facility] Comment on above: Expected: 04/05/2024 , Expires: 07/05/2024 Start: 01-21-2024 Covid-19 Vaccine () Covid-19 Vaccine () [facility] Start: 01-21-2024 Influenza vaccination Influenza Vacc ine (#1) [facility] Start: 01-07-2024 Mammography [facility] Start: 01-07-2024 Screening for malign ant neoplasm of breast Mammogram Screening [facility] Start: 12-10-2023 COVID-19 VACCINE (3 - Additional dose for Genie series) COVID-19 VACCINE (3 - Additional dose for Genie series) [facility] Comment on above: Postponed from 07/16 (Declined at this time) Start: 12-10-2023 HEPATITIS C SCREENING HEPATITIS C SC REENING [facility] Comment on above: Postponed from 09/25 (Declined at this time) Start: 12-10-2023 Pneumococcal Vaccine : 65+ (1 - PCV) Pneumococcal Vaccine: 65+ (1 - PCV) [facility] Comment on above: Postponed from 09/25 (Declined at this time) Start: 12-10-2023 PNEUMOCOCCAL: 65+ (1 - PCV) PNEUMOCOCCAL: 65+ (1 - PCV) [facility] Comment on above: Postponed from 09/25 (Declined at this time) Start: 12-10-2023 SHINGRIX VACCINE (1 of 2) SHINGRIX VACCINE (1 of 2) [facility] Comment on above: Postponed from 09/25 (Declined at this time) Start: 12-10-2023 Urine microalbumin profile [facility] Comment on above: Postponed from 11/28 (Declined at this time) Start: 05-22-2023 Advance Directive Discussion Advance Directive Discussion [facility] Start: 01-20-2023 Covid-19 Vaccine (2022-24 season) Covid-19 Vaccine ( season) [facility] Start: 01-20-2023 Influenza vaccination C [facility] Start: 11-28-2022 Urine microalbumin profile DTaP,Tdap,Td Vaccine (2 - Td or Tdap) [facility] Start: 10-25-2019 End: 10-25-2019 Appointment Appointment [facility] Work Phone: Start: 2017 BONE DENSITY BONE DENSITY [facility] Start: 2017 Pneumococcal Vaccine : 65+ (1 of 1 - PCV) Pneumococcal Vaccine: 65+ (1 of 1 - PCV) [facility] Start: 2012 RSV Vaccine (1 - 1-d ose 60+ series) RSV Vaccine (1 - 1-dose 60+ series) [facility] Start: 2002 Shingrix Vaccine (1 of 2) Shingrix Vaccine (1 of 2) [facility] Start: 1997 COLOGUARD (FIT-DNA) COLOGUARD (FIT-D NA) [facility] Start: 1997 Colonoscopy COLONOSCOPY [facility] Start: 1997 COLORECTAL CANCER SCREENING COLORECTAL CANCER SCREENING [facility] Start: [address] COLONOGRAPHY [facility] Start: 1997 FECAL OCCULT BLOOD FECAL OCCULT BLOO D [facility] Start: 1997 Screening for malign ant neoplasm of colon [facility] Start: 1997 SIGMOIDOSCOPY SIGMOIDOSCOPY [facility] Start: 1970 Anxiety Screening Anxiety Screening [facility] Start: 1970 Depression Screening Depression Scre ening [facility] Start: 1970 Hepatitis C screening Hepatitis C Sc reening [facility] End: 01-28-2024 COLONOSCOPY DIAGNOSTIC COLONOSCOPY DIAGNOSTIC Endoscopy Routine Positive colorectal cancer screening using Cologuard test 1 Occurrences starting 01/27/2023 until 01/28/2024 [facility] Work Phone: Comment on above: 1 Occurrences starti ng 01/27/2023 until 01/28/2024 End: 03-15-2025 DBT Breast - bilateral screening NORA SCREENING W [facility] Radiology Routine Encounter for screening mammogram for breast cancer 1 Occurrences starting 02/14/2024 until 03/15/2025 [facility] Work Phone: Comment on above: 1 Occurrences starti ng 02/14/2024 until 03/15/2025 Removal impacted cerumen irrigation/lvg unilat AMBULATORY EAR LAVAGE/IRRIGATION Procedures Routine Impacted cerumen of left ear Ordered: 12/09/2022 [facility] Work Phone: Comment on above: Ordered: 12/09/2022 [facility] Immunizations Immunization Date Immunization Notes Care Provider Cyndi cartwright 11-28-2012 tetanus toxoid, redu zackary diphtheria toxoid, and acellular pertussis vaccine, adsorbed Mammography Coordinator [facility] 02-21-2009 influenza virus vaccine, unspecified formulation Mammography Coordinator [facility] 03-27-2008 influenza virus vaccine, unspecified formulation Mammography Coordinator [facility] Payers Date Payer Category Payer Self-pay [id number] 2017 Medicare [id number] 2017 Miscellaneous or Other [facility] [place] [id number] 2017 Unknown HOSPITAL[facility] GENERIC MEDICAL GENERIC [id number] 2017-Present [phone] [place] [address], [place] [address] Indemnity [id number] 2017 Medicare [id number] 2017 Unknown [id number] 1950 Unknown [id number] Unknown [facility] ACCESS PPO [id number] Unknown [id number] Unknown [id number] Unknown [id number] Unknown [id number] Unknown [id number] Unknown [id number] Social History Date Type Detail Facility Start: 10-25-2019 End: 10-25-2019 Assertion Unknown if ever smoked [facility] Work Phone: Start: 1950 Sex Assigned At Female A [facility] Start: 11-19-2017 End: 01-27-2023 Tobacco smoking status NHIS Never smoked tobacco [facility] Start: 11-19-2017 End: 01-27-2023 Tobacco use and exposure Smokeless tobacco non-user [facility] Start: 12-09-2022 End: 08-04-2024 Alcohol intake Current non-drinker of alcohol (finding) [facility] Start: 04-28-2020 End: 12-09-2022 History of Social function [facility] Work Phone: Start: 04-28-2020 End: 12-09-2022 Tobacco use panel [facility] Work Phone: Adult Depression Screening Assessment 0 [facility] Work Phone: Start: 1950 Sex Assigned At Not on file C [facility] Tobacco smoking status No Smokin g Status Entered [facility] Functional Status Date Assessment Result Facility 12-22-2014 Are you deaf, or do you have serious difficulty hearing No 12/22/2014 9:12 AM EDT Grecia Justice LPN No [facility] 12-22-2014 Are you blind, or do you have serious difficulty seeing, even when wearing glasses No 12/22/2014 9:12 AM EDT Grecia Justice LPN No [facility] 12-22-2014 Do you have serious difficulty walking or climbing stairs No 12/22/2014 9:12 AM EDT Grecia Justice LPN No [facility] 12-22-2014 Do you have difficul ty dressing or bathing No 12/22/2014 9:12 AM EDT Grecia Justice LPN No [facility] 12-22-2014 Because of a physica l, mental, or emotional condition, do you have difficulty doing errands alone such as visiting a physician's office or shopping No 12/22/2014 9:12 AM EDT Grecia Justice LPN No [facility] Mental Status Date Assessment Result Facility 12-22-2014 Because of a physica l, mental, or emotional condition, do you have serious difficulty concentrating, remembering, or making decisions No 12/22/2014 9:12 AM EDT Grecia Justice LPN No [facility] Clinical Notes 12-09-2022 to 08-04-2024 Tianna Brand APRN.STAFF INTERPRETER - 08/04/2024 11:04 AM EDTCNohemi real PA-C - 05/10/2024 10:35 AM ESTPatient InstructionsTiffanie Barnhart APRN.CNS - 04/05/2024 12:29 PM ESTPatient Instructions Note Date & Type Note Facility 08-04-2024 Note HNO ID: [id number] Author: TIANNA BRAND APRN.STAFF INTERPRETER Service: ? Author Type: Nurse Practitioner Type: Progress Notes Filed: 08/04/2024 11:14 Note Text: [facility] Subjective Adelina Dominguez is a 73 year old female. Patient presents with: Sinus Problem: Nasal congestion, green drainage and CARPIO x 2 weeks 73 year old female with PMH GERD presents for illness. Acute onset 2 weeks ago +sinus pressure +congestion +headache +ear pressure +post nasal drainage + cough Denies N/V/D Denies CP Denies dyspnea Has used simply saline Coricidin The history is provided by the patient. No edi programmer was used. Sinus Problem This is a new problem. The current episode started 1 to 4 weeks ago. The problem occurs constantly. The problem has been unchanged. Associated symptoms include congestion, coughing and headaches. Pertinent negatives include no abdominal pain, anorexia, arthralgias, change in bowel habit, chest pain, chills, diaphoresis, fatigue, fever, joint swelling, myalgias, nausea, neck pain, numbness, rash, sore throat, swollen glands, urinary symptoms, vertigo, visual change, vomiting or weakness. Nothing aggravates the symptoms. Treatments tried: saline and Coricidin. The treatment provided no relief. 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 - Bacillus coagulan/calcium carb (DIGESTIVE ADVANTAGE PROBIOTIC ORAL) Take 1 capsule by mouth once daily. - doxycycline (VIBRA-TABS) 100 mg tablet Take 1 tablet by mouth two times a day for 7 days. - OTC NUTRITIONAL SUPPLEMENT Balance of Nature (Patient not taking: Reported on 08/04/2024) FAMILY HISTORY Problem Relation Age of Onset - other (Other [Other]) Mother Crohn's Disease, osteoarthritis - other (Other [Other]) Father CVA, Parkinsons, Dementia - other (Other [Other]) Sister Renal failure; had kidney transplant Social History Tobacco Use - Smoking status: Never - Smokeless tobacco: Never Vaping Use - Vaping status: Never Used Substance Use Topics - Alcohol use: No - Drug use: No Review of Systems Constitutional: Negative for chills, diaphoresis, fatigue and fever. HENT: Positive for congestion, postnasal drip, sinus pressure and sinus pain. Negative for sore throat. Eyes: Negative for pain, discharge, redness and itching. Respiratory: Positive for cough. Negative for apnea and chest tightness. Cardiovascular: Negative for chest pain. Gastrointestinal: Negative for abdominal pain, anorexia, change in bowel habit, nausea and vomiting. Musculoskeletal: Negative for arthralgias, joint swelling, myalgias and neck pain. Skin: Negative for rash. Allergic/Immunologic: Negative for environmental allergies, food allergies and immunocompromised state. Neurological: Positive for headaches. Negative for dizziness, vertigo, facial asymmetry, weakness and numbness. Hematological: Negative for adenopathy. Does not bruise/bleed easily. Psychiatric/Behavioral: Negative for agitation and behavioral problems. Objective BP 142/84 (BP Site: Left Arm, BP Position: Sitting) Pulse 88 Temp 36.6 ?C (97.8 ?F) Resp 16 Wt 73.9 kg (162 lb 14.7 oz) SpO2 99% BMI 30.28 kg/m? Physical Exam Vitals and nursing note reviewed. Constitutional: General: She is not in acute distress. Appearance: Normal appearance. She is normal weight. She is not ill-appearing, toxic-appearing or diaphoretic. HENT: Head: Normocephalic and atraumatic. Right Ear: Ear canal and external ear normal. Left Ear: Ear canal and external ear normal. Ears: Comments: +frontal sinus pressure +maxillary sinus pressure Bilateral TMs mild erythema Nose: Congestion present. No rhinorrhea. Mouth/Throat: Mouth: Mucous membranes are moist. Pharynx: Posterior oropharyngeal erythema present. No oropharyngeal exudate. Eyes: General: Right eye: No discharge. Left eye: No discharge. Extraocular Movements: Extraocular movements intact. Conjunctiva/sclera: Conjunctivae normal. Pupils: Pupils are equal, round, and reactive to light. Cardiovascular: Rate and Rhythm: Normal rate and regular rhythm. Pulses: Normal pulses. Heart sounds: Normal heart sounds. No murmur heard. No friction rub. Pulmonary: Effort: Pulmonary effort is normal. No respiratory distress. Breath sounds: Normal breat (more content not included)... [facility] 08-04-2024 History of Present illness Narrative [facility] Subjective Adelina Dominguez is a 73 year old female. Patient presents with: Sinus Problem: Nasal congestion, green drainage and CARPIO x 2 weeks 73 year old female with PMH GERD presents for illness. Acute onset 2 weeks ago +sinus pressure +congestion +headache +ear pressure +post nasal drainage + cough Denies N/V/D Denies CP Denies dyspnea Has used simply saline Coricidin The history is provided by the patient. No edi programmer was used. Sinus Problem This is a new problem. The current episode started 1 to 4 weeks ago. The problem occurs constantly. The problem has been unchanged. Associated symptoms include congestion, coughing and headaches. Pertinent negatives include no abdominal pain, anorexia, arthralgias, change in bowel habit, chest pain, chills, diaphoresis, fatigue, fever, joint swelling, myalgias, nausea, neck pain, numbness, rash, sore throat, swollen glands, urinary symptoms, vertigo, visual change, vomiting or weakness. Nothing aggravates the symptoms. Treatments tried: saline and Coricidin. The treatment provided no relief. 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 Bacillus coagulan/calcium carb (DIGESTIVE ADVANTAGE PROBIOTIC ORAL) Take 1 capsule by mouth once daily. doxycycline (VIBRA-TABS) 100 mg tablet Take 1 tablet by mouth two times a day for 7 days. OTC NUTRITIONAL SUPPLEMENT Balance of Nature (Patient not taking: Reported on 08/04/2024) FAMILY HISTORY Problem Relation Age of Onset other (Other [Other]) Mother Crohn's Disease, osteoarthritis other (Other [Other]) Father CVA, Parkinsons, Dementia other (Other [Other]) Sister Renal failure; had kidney transplant Social History Tobacco Use Smoking status: Never Smokeless tobacco: Never Vaping Use Vaping status: Never Used Substance Use Topics Alcohol use: No Drug use: No Review of Systems Constitutional: Negative for chills, diaphoresis, fatigue and fever. HENT: Positive for congestion, postnasal drip, sinus pressure and sinus pain. Negative for sore throat. Eyes: Negative for pain, discharge, redness and itching. Respiratory: Positive for cough. Negative for apnea and chest tightness. Cardiovascular: Negative for chest pain. Gastrointestinal: Negative for abdominal pain, anorexia, change in bowel habit, nausea and vomiting. Musculoskeletal: Negative for arthralgias, joint swelling, myalgias and neck pain. Skin: Negative for rash. Allergic/Immunologic: Negative for environmental allergies, food allergies and immunocompromised state. Neurological: Positive for headaches. Negative for dizziness, vertigo, facial asymmetry, weakness and numbness. Hematological: Negative for adenopathy. Does not bruise/bleed easily. Psychiatric/Behavioral: Negative for agitation and behavioral problems. Objective BP 142/84 (BP Site: Left Arm, BP Position: Sitting) Pulse 88 Temp 36.6 C (97.8 F) Resp 16 Wt 73.9 kg (162 lb 14.7 oz) SpO2 99% BMI 30.28 kg/m Physical Exam Vitals and nursing note reviewed. Constitutional: General: She is not in acute distress. Appearance: Normal appearance. She is normal weight. She is not ill-appearing, toxic-appearing or diaphoretic. HENT: Head: Normocephalic and atraumatic. Right Ear: Ear canal and external ear normal. Left Ear: Ear canal and external ear normal. Ears: Comments: +frontal sinus pressure +maxillary sinus pressure Bilateral TMs mild erythema Nose: Congestion present. No rhinorrhea. Mouth/Throat: Mouth: Mucous membranes are moist. Pharynx: Posterior oropharyngeal erythema present. No oropharyngeal exudate. Eyes: General: Right eye: No discharge. Left eye: No discharge. Extraocular Movements: Extraocular movements intact. Conjunctiva/sclera: Conjunctivae normal. Pupils: Pupils are equal, round, and reactive to light. Cardiovascular: Rate and Rhythm: Normal rate and regular rhythm. Pulses: Normal pulses. Heart sounds: Normal heart sounds. No murmur heard. No friction rub. Pulmonary: Effort: Pulmonary effort is normal. No respiratory distress. Breath sounds: Normal breath sounds. No stridor. No wheezing, rhonchi or rales. Chest: Chest wall: No tenderness. Abdominal: General: Abdomen is flat. There is no distension. Palpations: Abdomen is soft. There is no mass. Tenderness: There is no abdominal tenderness. There is no right CVA tenderness, left CVA tenderness, guarding or rebound. Hernia: No hernia is present. Musculoskeletal: General: No swelling, tenderness, deformity or signs of injury. Normal range of motion. Cervical back: Normal range of motion and neck supple. No rigidity. Right lower leg: No edema. Left lower leg: No edema. Lymphadenopathy: Cervical: Cervical adenopathy present. Skin: General: Skin is warm and dry. Capillary Refill: Capillary refill takes less than 2 seconds. Coloration: Skin is not jaundiced or pale. Findings: No bruising, erythema, lesion or rash. Neurological: General: No focal deficit present. Mental Status: She is alert and oriented to person, place, and time. Cranial Nerves: No cranial nerve deficit. Sensory: No sensory deficit. Motor: No weakness. Coordination: Coordination normal. Gait: Gait normal. Psychiatric: Mood and Affect: Mood normal. Behavior: Behavior normal. Thought Content: Thought content normal. Judgment: Judgment normal. ASSESSMENT/PLAN: 1. Rhinosinusitis - ICD9: 473.9, ICD10: J32.9 X 2 weeks Progressively worsening - Will begin treatment with as per antibiotic as written, see orders - The patient should also be given OTC cough and cold meds as needed, warm salt water gargles, throat lozenges and/or OTC throat spray as needed, and nasal saline gtts and suction prn for the first 5-7 days of treatment. - Supportive care with plenty of fluids, rest, and analgesia prn. - Follow up in 3-5 days if symptoms persist or worsen. Tianna Brand APRN.STAFF INTERPRETER History and Record Review External record(s) reviewed: prior outpatient record and immunization history. Differential Diagnoses - sinusitis is more likely for the following reason(s): suggested by H&P Disposition The patient was discharged. Procedures documented in this encounter [facility] 05-10-2024 Note HNO ID: [id number] Author: NOHEMI LOBO PA-C Service: ? Author Type: Physician Patternmaker Apprentice Wood Type: Progress Notes Filed: 05/10/2024 10:41 Note Text: This note was created using [employer]. Subjective Adelina Dominguez is a 73 year old female. Patient is a 73-year-old female who complains of worsening congestion, sinus pressure, ear pressure, left ear pain, sore throat cough that she has been experiencing for approximately 2 weeks. Patient reports no fever, chills or myalgia. Patient has no history of asthma or COPD and does not smoke. Patient has been taking [id number] medications with no improvement in her symptoms. Patient states that she does have a history of sinus infections and that her current symptoms are consistent with same. Sore Throat Associated symptoms include congestion, coughing and ear pain. Review of Systems HENT: Positive for congestion, ear pain, sinus pressure, sinus pain and sore throat. Respiratory: Positive for cough. All other systems reviewed and are negative. Objective BP 94/63 Pulse 81 Temp 36.9 ?C (98.4 ?F) Resp 18 Wt 71 kg (156 lb 8.4 oz) SpO2 99% BMI 29.10 kg/m? Physical Exam Vitals and nursing note reviewed. Constitutional: Appearance: Normal appearance. She is normal weight. HENT: Head: Normocephalic and atraumatic. Right Ear: Tympanic membrane, ear canal and external ear normal. Left Ear: Tympanic membrane, ear canal and external ear normal. Nose: Congestion present. Mouth/Throat: Mouth: Mucous membranes are moist. Pharynx: Oropharynx is clear. Posterior oropharyngeal erythema present. Eyes: Extraocular Movements: Extraocular movements intact. Conjunctiva/sclera: Conjunctivae normal. Pupils: Pupils are equal, round, and reactive to light. Cardiovascular: Rate and Rhythm: Normal rate and regular rhythm. Pulses: Normal pulses. Heart sounds: Normal heart sounds. Pulmonary: Effort: Pulmonary effort is normal. Breath sounds: Normal breath sounds. Musculoskeletal: Cervical back: Normal range of motion and neck supple. Skin: General: Skin is warm and dry. Capillary Refill: Capillary refill takes less than 2 seconds. Neurological: General: No focal deficit present. Mental Status: She is alert and oriented to person, place, and time. Psychiatric: Mood and Affect: Mood normal. Behavior: Behavior normal. Thought Content: Thought content normal. Judgment: Judgment normal. Assessment and Plan Physical exam findings as noted above. Patient does experience diarrhea with Augmentin and she was therefore provided with prescription for doxycycline 100 mg. Supportive care instructions were discussed and the patient verbalizes good understanding of same. CLINICAL IMPRESSION: Acute Sinusitis ASSESSMENT/PLAN: 1. Acute recurrent sinusitis, unspecified location - ICD9: 461.9, ICD10: J01.91 - DOXYCYCLINE HYCLATE 100 MG TABLET Nohemi Lobo PA-C [facility] 05-10-2024 History of Present illness Narrative This note was created using Ye[employer]. Subjective Adelina Dominguez is a 73 year old female. Patient is a 73-year-old female who complains of worsening congestion, sinus pressure, ear pressure, left ear pain, sore throat cough that she has been experiencing for approximately 2 weeks. Patient reports no fever, chills or myalgia. Patient has no history of asthma or COPD and does not smoke. Patient has been taking [id number] medications with no improvement in her symptoms. Patient states that she does have a history of sinus infections and that her current symptoms are consistent with same. Sore Throat Associated symptoms include congestion, coughing and ear pain. Review of Systems HENT: Positive for congestion, ear pain, sinus pressure, sinus pain and sore throat. Respiratory: Positive for cough. All other systems reviewed and are negative. Objective BP 94/63 Pulse 81 Temp 36.9 C (98.4 F) Resp 18 Wt 71 kg (156 lb 8.4 oz) SpO2 99% BMI 29.10 kg/m Physical Exam Vitals and nursing note reviewed. Constitutional: Appearance: Normal appearance. She is normal weight. HENT: Head: Normocephalic and atraumatic. Right Ear: Tympanic membrane, ear canal and external ear normal. Left Ear: Tympanic membrane, ear canal and external ear normal. Nose: Congestion present. Mouth/Throat: Mouth: Mucous membranes are moist. Pharynx: Oropharynx is clear. Posterior oropharyngeal erythema present. Eyes: Extraocular Movements: Extraocular movements intact. Conjunctiva/sclera: Conjunctivae normal. Pupils: Pupils are equal, round, and reactive to light. Cardiovascular: Rate and Rhythm: Normal rate and regular rhythm. Pulses: Normal pulses. Heart sounds: Normal heart sounds. Pulmonary: Effort: Pulmonary effort is normal. Breath sounds: Normal breath sounds. Musculoskeletal: Cervical back: Normal range of motion and neck supple. Skin: General: Skin is warm and dry. Capillary Refill: Capillary refill takes less than 2 seconds. Neurological: General: No focal deficit present. Mental Status: She is alert and oriented to person, place, and time. Psychiatric: Mood and Affect: Mood normal. Behavior: Behavior normal. Thought Content: Thought content normal. Judgment: Judgment normal. Assessment and Plan Physical exam findings as noted above. Patient does experience diarrhea with Augmentin and she was therefore provided with prescription for doxycycline 100 mg. Supportive care instructions were discussed and the patient verbalizes good understanding of same. CLINICAL IMPRESSION: Acute Sinusitis ASSESSMENT/PLAN: 1. Acute recurrent sinusitis, unspecified location - ICD9: 461.9, ICD10: J01.91 - DOXYCYCLINE HYCLATE 100 MG TABLET Nohemi Lobo PA-C documented in this encounter [facility] 04-05-2024 Instructions Tiffanie Barnhart APRN.CNS - 04/05/2024 12:53 PM EST Consider colonoscopy for colon cancer screening, follow up of positive Cologuard test Consider Flu, Covid19, pneumonococcal vaccines documented in this encounter [facility] 04-05-2024 Note HNO ID: [id number] Author: TIFFANIE BARNHART APRN.CNS Service: ? Author Type: Nurse Specialist Type: Progress Notes Filed: 04/05/2024 13:12 Note Text: SUBJECTIVE: Depression Screening Never done Anxiety Screening Never done Hepatitis C Screening Never done Shingrix Vaccine(1 of 2) Never done Pneumococcal Vaccine: 65+(1 of 1 - PCV) Never done DTaP,Tdap,Td Vaccine(2 - Td or Tdap) due on 11/28/2022 Advance Directive Discussion due on 05/22/2023 Mammogram Screening due on 01/07/2024 Influenza Vaccine(1) due on 01/21/2024 Covid-19 Vaccine(3 - season) due on 01/21/2024 HPI Adelina Dominguez is a 73 year old female. PMH significant for ACTIVE PROBLEM LIST Sciatica Pain in Joint, Lower Leg Chronic Sinusitis She was seen in [facility] care for shoulder injury February 28, 2024. Referred to emergency department. She was seen at [facility] ER. Sling was last provided. Orthopedics to follow-up in outpatient setting. She was seen by [facility] orthopedic provider, was able to be seen the next day. No surgery needed, recovering well, has started physical therapy. May have limited overhead motion at final healing. She underwent Cologuard testing which was positive. Seen by general surgery to discuss colon cancer screening / colonsocopy. Decided not to proceed with colonoscopy at that time. States she had diarrhea at the time that she completed the Cologuard. States her mother had trouble with colonoscopy, mother had Crohn's and had perforation requiring ostomy afterwards. Review of Systems Constitutional: Negative. Endocrine: Negative. Musculoskeletal: Positive for arthralgias. Objective Physical Exam Vitals and nursing note reviewed. Constitutional: Appearance: Normal appearance. HENT: Head: Normocephalic and atraumatic. Eyes: Conjunctiva/sclera: Conjunctivae normal. Neck: Thyroid: No thyromegaly. Vascular: Normal carotid pulses. No JVD. Cardiovascular: Rate and Rhythm: Normal rate and regular rhythm. Pulses: Carotid pulses are 2+ on the right side and 2+ on the left side. Radial pulses are 2+ on the right side and 2+ on the left side. Heart sounds: Normal heart sounds. Pulmonary: Effort: Pulmonary effort is normal. Breath sounds: Normal breath sounds. Abdominal: General: Bowel sounds are normal. Palpations: Abdomen is soft. Musculoskeletal: Right lower leg: No edema. Left lower leg: No edema. Skin: General: Skin is warm and dry. Neurological: General: No focal deficit present. Mental Status: She is alert and oriented to person, place, and time. ALLERGIES Allergen Reactions Augmentin [Amoxicil* Diarrhea Bextra [Valdecoxib] Intolerance Headache Clindamycin Rash Systemic drug rash following tx. 2wks prior had been taking amoxil-done well in past. Ketoprofen Intolerance Headache Macrobid [Nitrofura* GI Upset Headache, chills Lodine [Etodolac] Intolerance Headache Medications acetaminophen (TYLENOL EXTRA STRENGTH) 500 mg tablet Take 500 mg by mouth every 8 hours as needed. OTC NUTRITIONAL SUPPLEMENT Balance of Nature meloxicam (MOBIC) 15 mg tablet (Patient not taking: Reported on 02/28/2024) psyllium husk (DAILY FIBER ORAL) Take 1 capsule by mouth once daily. 1-2 capsules daily (Patient not taking: Reported on 02/28/2024) Bacillus coagulan/calcium carb (DIGESTIVE ADVANTAGE PROBIOTIC ORAL) Take 1 capsule by mouth once daily. diclofenac, EC, (VOLTAREN) 25 mg EC tablet Take 1 tablet by mouth as needed for pain. (Patient not taking: Reported on 01/27/2023) fluticasone (FLONASE) 50 mcg/actuation nasal spray Use 2 Sprays in each nostril as needed. 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 Lumbar facet arthropathy Positive colorectal cancer screening using Cologuard test 01/01/2023 Social History Tobacco Use Smoking status: Never Smokeless tobacco: Never Vaping Use Vaping status: Never Used Substance Use Topics Alcohol use: No Drug use: No Latest Ref Rng 12/23/2022 01/01/2023 Protein, Total 6.3 - 8.0 g/dL 6.9 Albumin 3.9 - 4.9 g/dL 4.5 Calcium 8.5 - 10.2 mg/dL 9.6 Bilirubin, Total 0.2 - 1.3 mg/dL 0.5 Alkaline Phosphatase 34 - 123 U/L 118 AST 13 - 35 U/L 21 ALT 7 - 38 U/L 16 Glucose 74 - 99 mg/dL 90 BUN 7 - 21 mg/dL 19 Creatinine 0.58 - 0.96 mg/dL 0.90 Sodium 136 - 144 mmol/L 140 Potassium 3.7 - 5.1 mmol/L 4.7 Chloride 97 - 105 mmol/L 104 CO2 22 - 30 mmol/L 26 Anion Gap 9 - 18 mmol/L 10 eGFR >=60 mL/min/1.73m? 69 WBC 3.70 - 11.00 k/uL 5.99 RBC 3.90 - 5.20 m/uL 5.40 (H) Hemoglobin 11.5 - 15.5 g/dL 14.9 Hematocrit 36.0 - 46. (more content not included)... [facility] 04-05-2024 History of Present illness Narrative SUBJECTIVE: Depression Screening Never done Anxiety Screening Never done Hepatitis C Screening Never done Shingrix Vaccine(1 of 2) Never done Pneumococcal Vaccine: 65+(1 of 1 - PCV) Never done DTaP,Tdap,Td Vaccine(2 - Td or Tdap) due on 11/28/2022 Advance Directive Discussion due on 05/22/2023 Mammogram Screening due on 01/07/2024 Influenza Vaccine(1) due on 01/21/2024 Covid-19 Vaccine( - season) due on 01/21/2024 HPI Adelina Dominguez is a 73 year old female. PMH significant for ACTIVE PROBLEM LIST Sciatica Pain in Joint, Lower Leg Chronic Sinusitis She was seen in [facility] for shoulder injury February 28, 2024. Referred to emergency department. She was seen at [facility] ER. Sling was last provided. Orthopedics to follow-up in outpatient setting. She was seen by [facility] orthopedic provider, was able to be seen the next day. No surgery needed, recovering well, has started physical therapy. May have limited overhead motion at final healing. She underwent Cologuard testing which was positive. Seen by general surgery to discuss colon cancer screening / colonsocopy. Decided not to proceed with colonoscopy at that time. States she had diarrhea at the time that she completed the Cologuard. States her mother had trouble with colonoscopy, mother had Crohn's and had perforation requiring ostomy afterwards. Review of Systems Constitutional: Negative. Endocrine: Negative. Musculoskeletal: Positive for arthralgias. Objective Physical Exam Vitals and nursing note reviewed. Constitutional: Appearance: Normal appearance. HENT: Head: Normocephalic and atraumatic. Eyes: Conjunctiva/sclera: Conjunctivae normal. Neck: Thyroid: No thyromegaly. Vascular: Normal carotid pulses. No JVD. Cardiovascular: Rate and Rhythm: Normal rate and regular rhythm. Pulses: Carotid pulses are 2+ on the right side and 2+ on the left side. Radial pulses are 2+ on the right side and 2+ on the left side. Heart sounds: Normal heart sounds. Pulmonary: Effort: Pulmonary effort is normal. Breath sounds: Normal breath sounds. Abdominal: General: Bowel sounds are normal. Palpations: Abdomen is soft. Musculoskeletal: Right lower leg: No edema. Left lower leg: No edema. Skin: General: Skin is warm and dry. Neurological: General: No focal deficit present. Mental Status: She is alert and oriented to person, place, and time. ALLERGIES Allergen Reactions Augmentin [Amoxicil* Diarrhea Bextra [Valdecoxib] Intolerance Headache Clindamycin Rash Systemic drug rash following tx. 2wks prior had been taking amoxil-done well in past. Ketoprofen Intolerance Headache Macrobid [Nitrofura* GI Upset Headache, chills Lodine [Etodolac] Intolerance Headache Medications acetaminophen (TYLENOL EXTRA STRENGTH) 500 mg tablet Take 500 mg by mouth every 8 hours as needed. OTC NUTRITIONAL SUPPLEMENT Balance of Nature meloxicam (MOBIC) 15 mg tablet (Patient not taking: Reported on 02/28/2024) psyllium husk (DAILY FIBER ORAL) Take 1 capsule by mouth once daily. 1-2 capsules daily (Patient not taking: Reported on 02/28/2024) Bacillus coagulan/calcium carb (DIGESTIVE ADVANTAGE PROBIOTIC ORAL) Take 1 capsule by mouth once daily. diclofenac, EC, (VOLTAREN) 25 mg EC tablet Take 1 tablet by mouth as needed for pain. (Patient not taking: Reported on 01/27/2023) fluticasone (FLONASE) 50 mcg/actuation nasal spray Use 2 Sprays in each nostril as needed. 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 Lumbar facet arthropathy Positive colorectal cancer screening using Cologuard test 01/01/2023 Social History Tobacco Use Smoking status: Never Smokeless tobacco: Never Vaping Use Vaping status: Never Used Substance Use Topics Alcohol use: No Drug use: No Latest Ref Rng 12/23/2022 01/01/2023 Protein, Total 6.3 - 8.0 g/dL 6.9 Albumin 3.9 - 4.9 g/dL 4.5 Calcium 8.5 - 10.2 mg/dL 9.6 Bilirubin, Total 0.2 - 1.3 mg/dL 0.5 Alkaline Phosphatase 34 - 123 U/L 118 AST 13 - 35 U/L 21 ALT 7 - 38 U/L 16 Glucose 74 - 99 mg/dL 90 BUN 7 - 21 mg/dL 19 Creatinine 0.58 - 0.96 mg/dL 0.90 Sodium 136 - 144 mmol/L 140 Potassium 3.7 - 5.1 mmol/L 4.7 Chloride 97 - 105 mmol/L 104 CO2 22 - 30 mmol/L 26 Anion Gap 9 - 18 mmol/L 10 eGFR >=60 mL/min/1.73m 69 WBC 3.70 - 11.00 k/uL 5.99 RBC 3.90 - 5.20 m/uL 5.40 (H) Hemoglobin 11.5 - 15.5 g/dL 14.9 Hematocrit 36.0 - 46.0 % 48.0 (H) MCV 80.0 - 100.0 fL 88.9 MCH 26.0 - 34.0 pg 27.6 MCHC 30.5 - 36.0 g/dL 31.0 RDW-CV 11.5 - 15.0 % 13.3 Platelet Count 150 - 400 k/uL 227 MPV 9.0 - 12.7 fL 10.9 Absolute nRBC <0.01 k/uL <0.01 Cholesterol, Total <200 mg/dL 251 (H) Triglyceride <150 mg/dL 91 HDL Cholesterol >39 mg/dL 67 Non HDL Cholesterol <130 mg/dL 184 (H) Fasting Time hrs 15 VLDL Cholesterol <30 mg/dL 18 TC:HDL Ratio <5.10 3.75 LDL Cholesterol <100 mg/dL 166 (H) LDL:HDL Ratio <2.54 2.48 Stool DNA Negative Positive ! The 10-year ASCVD risk score (Yoselin DK, et al., 2019) is: 11.6% Values used to calculate the score: Age: 73 years Sex: Female Is Non- : No Diabetic: No Tobacco smoker: No Systolic Blood Pressure: 133 mmHg Is BP treated: No HDL Cholesterol: 67 mg/dL Total Cholesterol: 251 mg/dL ASSESSMENT/PLAN: 1. Hypercholesteremia - ICD9: 272.0, ICD10: E78.00 (primary diagnosis) Recommend a plant based diet such as Mediterranean diet with plenty of vegetables, fruits,whole grains, fish, chicken, turkey or plant proteins and routine exercise such as walking - COMPREHENSIVE METABOLIC PANEL - COMPLETE BLOOD COUNT AND DIFFERENTIAL - LIPID PANEL, NONFASTING 2. Other closed nondisplaced fracture of proximal end of right humerus with routine healing, subsequent encounter - ICD9: V54.11, ICD10: S42.294D Following with [facility] 3. Positive colorectal cancer screening using Cologuard test - ICD9: 787.7, ICD10: R19.5 Declines to schedule colonoscopy at this time 4. Vitamin D deficiency - ICD9: 268.9, ICD10: E55.9 - VITAMIN D 25 HYDROXY 5. Encounter for immunization - ICD9: V03.89, ICD10: Z23 - declines all at this time - [employer] INSTRUCTIONS - INFLUENZA VACCINE, PRSV FREE, AGE 65+ YR, HIGH DOSE, TRIVALENT (FLUZONE HIGH-DOSE) - [employer] COVID-19 VACCINE AGE 12+ YR (COMIRNATY) - [employer] PR[employer] [facility] INSTRUCTIONS - PNEUMOCOCCAL VACCINE, 20 VALENT (PREVNAR 20) 6. Screening for depression - ICD9: V79.0, ICD10: Z13.31 - DEPRESSION SCREENING 7. Encounter for screening examination for other mental health and behavioral disorders - ICD9: V79.8, ICD10: Z13.39 - ANXIETY SCREENING 8. Special screening examination for viral disease - ICD9: V73.99, ICD10: Z11.59 - HEPATITIS C ANTIBODY IA WITH CONFIRMATION 1 year follow up MD Tiffanie Prince APRN.V BLOCK SAW OPERATOR Medical Decision Making: Problems: Low: Acute, uncomplicated illness or injury and Stable chronic illness Moderate: New problem with uncertain prognosis Data: Unique test result(s) reviewed: 3+ Unique test(s) ordered: 3+ Medical Decision Making Level: 4 - Moderate documented in this encounter [facility] 02-29-2024 Telephone encounter Note Patient seen at [facility]. Will follow up there. [facility] 02-29-2024 Miscellaneous Notes Patient seen at [facility]. Will follow up there. CD READY FOR PSYCHOLOGY LECTURER AT [facility] Pt is aware Patient is requesting x-ray rt shoulder copied to a disk for clam picker 02/29/24 documented in this encounter [facility] 02-28-2024 Telephone encounter Note CD READY FOR PSYCHOLOGY LECTURER AT [facility] Pt is aware [facility] 02-28-2024 Telephone encounter Note Patient is requesting x-ray rt shoulder copied to a disk for clam picker 02/29/24 [facility] 02-28-2024 History of Present illness Narrative Radiology Service Progress Note PATIENT NAME: Adelina Dominguez DATE OF SERVICE: February 28, 2024 TIME: 9:20 AM PATIENT IDENTITY VERIFICATION COMPLETED USING TWO (2) IDENTIFIERS: Name and Date of confirmed by patient verbally. FALL SCREENING: Has the patient had 2 falls in the last year or 1 fall with injury or currently using an Ambulatory Assistive Device (Walker, Cane, Wheelchair, Crutches, etc.)? No PATIENT GENDER DATA: Female. status: : No status: NO. PATIENT RELEVANT IMPLANT DATA REVIEWED: Not Applicable PATIENT PRESENTS WITH AN IMPLANTABLE OR ATTACHED MICROBIOLOGY MANAGER: No RADIOLOGY DEPARTMENT: General X-ray: Exam(s) Completed: Upper Extremity X-Ray(s): Shoulder, AP / TRUE AP / AXILLARY right PERIPHERAL IV DATA: Not applicable SIGNED BY: RT Susan(R) February 28, 2024 9:20 AM documented in this encounter [facility] 02-28-2024 Note HNO ID: [id number] Author: SOBIA GAUTAM RT (R) Service: Radiology Author Type: Technologist Type: Progress Notes Filed: 02/28/2024 09:26 Note Text: Radiology Service Progress Note PATIENT NAME: Adelina Dominguez DATE OF SERVICE: February 28, 2024 TIME: 9:20 AM PATIENT IDENTITY VERIFICATION COMPLETED USING TWO (2) IDENTIFIERS: Name and Date of confirmed by patient verbally. FALL SCREENING: Has the patient had 2 falls in the last year or 1 fall with injury or currently using an Ambulatory Assistive Device (Walker, Cane, Wheelchair, Crutches, etc.)? No PATIENT GENDER DATA: Female. status: : No status: NO. PATIENT RELEVANT IMPLANT DATA REVIEWED: Not Applicable PATIENT PRESENTS WITH AN IMPLANTABLE OR ATTACHED MICROBIOLOGY MANAGER: No RADIOLOGY DEPARTMENT: General X-ray: Exam(s) Completed: Upper Extremity X-Ray(s): Shoulder, AP / TRUE AP / AXILLARY right PERIPHERAL IV DATA: Not applicable SIGNED BY: ASPEN Davis) February 28, 2024 9:20 AM [facility] 02-28-2024 Note HNO ID: [id number] Author: JASS HICKEY APRN.STAFF INTERPRETER Service: ? Author Type: Nurse Practitioner Type: Progress Notes Filed: 02/28/2024 11:25 Note Text: Subjective Female with complaints of pain in the right shoulder. Patient says she tripped over a box yesterday and fell. Patient does have bruising to the right upper arm. Patient is not on a blood thinner. Patient says she did hit her head blood very minimal and she did not pass out or have any headaches. Patient is not concerned about the she is more concerned about the shoulder. Patient says she has very limited range of motion due to the pain. Denies any numbness tingling or loss of feeling. The history is provided by the patient. No edi programmer was used. Fall Review of Systems Constitutional: Negative. Skin: Negative. Objective Physical Exam Constitutional: Appearance: Normal appearance. Pulmonary: Effort: Pulmonary effort is normal. Musculoskeletal: Arms: Comments: Full area marked above is where pain is located. Blue area marked above is where bruising is noted. No swelling no warmth no pain in the bruised area. No pain in the clavicle. Neurological: Mental Status: She is alert. 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 meloxicam (MOBIC) 15 mg tablet (Patient not taking: Reported on 02/28/2024) psyllium husk (DAILY FIBER ORAL) Take 1 capsule by mouth once daily. 1-2 capsules daily (Patient not taking: Reported on 02/28/2024) diclofenac, EC, (VOLTAREN) 25 mg EC tablet Take 1 tablet by mouth as needed for pain. (Patient not taking: Reported on 01/27/2023) fluticasone (FLONASE) 50 mcg/actuation nasal spray Use 2 Sprays in each nostril as needed. (Patient not taking: Reported on 02/28/2024) Omeprazole Magnesium (PRILOSEC OTC) 20 mg ORAL TbEC as needed (Patient not taking: Reported on 02/28/2024) FAMILY HISTORY Problem Relation Age of Onset other (Other [Other]) Mother Crohn's Disease, osteoarthritis other (Other [Other]) Father CVA, Parkinsons, Dementia other (Other [Other]) Sister Renal failure; had kidney transplant Social History Tobacco Use Smoking status: Never Smokeless tobacco: Never Vaping Use Vaping status: Never Used Substance Use Topics Alcohol use: No Drug use: No ASSESSMENT/PLAN: 1. Pain - ICD9: 780.96, ICD10: R52 (primary diagnosis) - XR SHOULDER GENERAL 3V OR MORE AP/TRUE AP/OTHER RIGHT * * * * Physician Interpretation * * * * TITLE: XR SHLDR >/=3V AP/NADEGE AP/OTHR RT CLINICAL INDICATION: Status post fall with pain TECHNIQUE: 3 view radiographic study of the right shoulder COMPARISON: None FINDINGS: Acute, comminuted, impacted fracture of the right humeral neck with involvement of the greater and likely lesser tuberosities. Acromioclavicular joint intact. IMPRESSION IMPRESSION: Acute, comminuted, impacted fracture of the right humeral neck as described. Palliative Medicine Physician: SANDY Transcribe Date/Time: Feb 28 2024 9:27A Dictated by : KARY TANNER MD 2. Fracture - ICD9: 829.0, ICD10: T14.8XXA 3. Closed fracture of right shoulder, initial encounter - ICD9: 812.00, ICD10: S42.91XA Was placed to keep arm in place while patient transfers to the ER. Did call and speak with a physician in [place] [facility] about patient. Ortho on staff. Patient will go there Jass Hickey APRN.[facility] 02-28-2024 History of Present illness Narrative Images from the original note were not included. Subjective Female with complaints of pain in the right shoulder. Patient says she tripped over a box yesterday and fell. Patient does have bruising to the right upper arm. Patient is not on a blood thinner. Patient says she did hit her head blood very minimal and she did not pass out or have any headaches. Patient is not concerned about the she is more concerned about the shoulder. Patient says she has very limited range of motion due to the pain. Denies any numbness tingling or loss of feeling. The history is provided by the patient. No edi programmer was used. Fall Review of Systems Constitutional: Negative. Skin: Negative. Objective Physical Exam Constitutional: Appearance: Normal appearance. Pulmonary: Effort: Pulmonary effort is normal. Musculoskeletal: Arms: Comments: Full area marked above is where pain is located. Blue area marked above is where bruising is noted. No swelling no warmth no pain in the bruised area. No pain in the clavicle. Neurological: Mental Status: She is alert. 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 meloxicam (MOBIC) 15 mg tablet (Patient not taking: Reported on 02/28/2024) psyllium husk (DAILY FIBER ORAL) Take 1 capsule by mouth once daily. 1-2 capsules daily (Patient not taking: Reported on 02/28/2024) diclofenac, EC, (VOLTAREN) 25 mg EC tablet Take 1 tablet by mouth as needed for pain. (Patient not taking: Reported on 01/27/2023) fluticasone (FLONASE) 50 mcg/actuation nasal spray Use 2 Sprays in each nostril as needed. (Patient not taking: Reported on 02/28/2024) Omeprazole Magnesium (PRILOSEC OTC) 20 mg ORAL TbEC as needed (Patient not taking: Reported on 02/28/2024) FAMILY HISTORY Problem Relation Age of Onset other (Other [Other]) Mother Crohn's Disease, osteoarthritis other (Other [Other]) Father CVA, Parkinsons, Dementia other (Other [Other]) Sister Renal failure; had kidney transplant Social History Tobacco Use Smoking status: Never Smokeless tobacco: Never Vaping Use Vaping status: Never Used Substance Use Topics Alcohol use: No Drug use: No ASSESSMENT/PLAN: 1. Pain - ICD9: 780.96, ICD10: R52 (primary diagnosis) - XR SHOULDER GENERAL 3V OR MORE AP/TRUE AP/OTHER RIGHT * * * * Physician Interpretation * * * * TITLE: XR SHLDR >/=3V AP/NADEGE AP/OTHR RT CLINICAL INDICATION: Status post fall with pain TECHNIQUE: 3 view radiographic study of the right shoulder COMPARISON: None FINDINGS: Acute, comminuted, impacted fracture of the right humeral neck with involvement of the greater and likely lesser tuberosities. Acromioclavicular joint intact. IMPRESSION IMPRESSION: Acute, comminuted, impacted fracture of the right humeral neck as described. Palliative Medicine Physician: SANDY Transcribe Date/Time: Feb 28 2024 9:27A Dictated by : KARY TANNER MD 2. Fracture - ICD9: 829.0, ICD10: T14.8XXA 3. Closed fracture of right shoulder, initial encounter - ICD9: 812.00, ICD10: S42.91XA Was placed to keep arm in place while patient transfers to the ER. Did call and speak with a physician in [place] ER about patient. Ortho on staff. Patient will go there Jass Hickey APRN.STAFF INTERPRETER documented in this encounter [facility] 02-14-2024 Note Patient Outreach (IN [facility]) ADELINA DOMINGUEZ ([id number]) 1950 F Date Time Provider Department 02/14/24 JOANA NYE During your visit today, we recorded the following information about you: Allergies As of Date: 02/14/2024 Noted Allergy Reaction AUGMENTIN (AMOXICILLIN-POT CLAVUL*09/24/2011 6 - Diarrhea BEXTRA (VALDECOXIB) 04/12/2005 5 - Intolerance Comments: Headache CLINDAMYCIN 08/20/2012 2 - Rash Comments: Systemic drug rash following tx. 2wks prior had been taking amoxil-done well in past. KETOPROFEN 04/12/2005 5 - Intolerance Comments: Headache MACROBID (NITROFURANTOIN MONOHYD/*04/03/2008 8 - GI Upset Comments: Headache, chills LODINE (ETODOLAC) 04/12/2005 5 - Intolerance Comments: Headache Date Reviewed: 01/27/2023 Reviewed by: Sarahy Rhodes PA-C - Fully Assessed Visit Diagnosis:Encounter for screening mammogram for breast cancer [Z12.31] Order(s):[facility] SCREENING [facility] [[id number]] Order #: [id number] FUTURE Prescriptions as of 02/19/2024 - meloxicam (MOBIC) 15 mg tablet - psyllium husk (DAILY FIBER ORAL) Take 1 capsule by mouth once daily. 1-2 capsules daily - Bacillus coagulan/calcium carb (DIGESTIVE ADVANTAGE PROBIOTIC ORAL) Take 1 capsule by mouth once daily. - diclofenac, EC, (VOLTAREN) 25 mg EC tablet Take 1 tablet by mouth as needed for pain. - fluticasone (FLONASE) 50 mcg/actuation nasal spray Use 2 Sprays in each nostril as needed. - Omeprazole Magnesium (PRILOSEC OTC) 20 mg ORAL TbEC as needed Problem List As Of Date 02/14/2024 Noted Resolved SCIATICA [M54.30] 04/28/2005 PAIN IN JOINT, LOWER LEG [M25.569] 07/13/2005 Chronic Sinusitis [J32.9] 03/09/2009 Encounter Status:Closed by JOSETTE ABBOTT on 02/19/24 [facility] 01-27-2023 Miscellaneous Notes 02-24-2023 ASC Colon diagnostic documented in this encounter [facility] 01-27-2023 History of Present illness Narrative HISTORY AND PHYSICAL Adelina Yoder Angelica 1950 REFERRING PHYSICIAN: Katherine Vera APRN.STAFF INTERPRETER CHIEF COMPLAINT: Consult (Colonoscopy consult, positive Cologuard. ) HPI: The patient is a 72 year old female referred for endoscopy due to positive Cologuard test. Patient denies any change in bowel habits, weight changes, visible blood in stools, black tarry stools or abdominal pain. Denies family history of colon issues. The patient notes no upper GI complaints. Adelina has not undergone prior endoscopy. 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 1-2 capsules daily Bacillus coagulan/calcium carb (DIGESTIVE ADVANTAGE PROBIOTIC ORAL) Take 1 capsule by mouth once daily. fluticasone (FLONASE) 50 mcg/actuation nasal spray Use 2 Sprays in each nostril as needed. Omeprazole Magnesium (PRILOSEC OTC) 20 mg ORAL TbEC as needed diclofenac, EC, (VOLTAREN) 25 mg EC tablet Take 1 tablet by mouth as needed for pain. (Patient not taking: Reported on 01/27/2023) No current facility-administered medications for this visit. ALLERGIES: Augmentin [Amoxicillin-Pot Clavulanate], Bextra [Valdecoxib], Clindamycin, Ketoprofen, Macrobid [Nitrofurantoin Monohyd/M-Cryst], and Lodine [Etodolac] PERSONAL HISTORY: Social History Tobacco Use Smoking status: Never Smokeless tobacco: Never Vaping Use Vaping Use: Never used Substance Use Topics Alcohol use: No Drug use: No FAMILY HISTORY: FAMILY HISTORY Problem Relation Age of Onset other (Other [Other]) Mother Crohn's Disease, osteoarthritis other (Other [Other]) Father CVA, Parkinsons, Dementia other (Other [Other]) Sister Renal failure; had kidney transplant REVIEW OF SYMPTOMS: The review of systems data was entered by the nurse and reviewed by wa Nursing Notes: Esperanza Pozo RN 01/27/2023 9:03 AM Signed REVIEW OF SYSTEMS: General: The patient denies fatigue, denies weight loss, denies weight gain, denies feeling hot, and denies feelings of cold. Eyes: The patient denies glaucoma, denies eye injury/surgery, does not wear glasses or contacts. Ear/Nose/Throat: The patient NOTES allergies, denies hayfever, denies ear infections, and denies bloody noses. Cardiovascular: The patient denies chest pain, denies heart disease, denies high blood pressure,denies cardiac stent, denies prior heart attack, denies irregular heart beat, denies high cholesterol, denies poor circulation, denies heart failure, other cardiac issues, denies claudication, denies cold feet, denies peripheral arterial stent. Respiratory: The patient denies tuberculosis, denies pneumonia, denies frequent cough, denies pulmonary embolism, denies shortness of breath, and denies coughing up blood. Gastrointestinal: The patient denies difficulty swallowing, NOTES acid reflux, denies ulcers, denies vomiting, denies jaundice/hepatitis, denies gallbladder problems, denies black or tarry stools, denies hemorrhoids, denies bleeding from rectum, denies diverticulitis, denies constipation, denies diarrhea, denies loss of stool control, and denies hernias. Kidney/Bladder: The patient denies kidney stones, denies urine infections, and denies bloody urine. Skin: The patient denies a history of skin cancer, denies bleeding/changing moles, and denies a history of skin rash. Neurologic: The patient denies a history of epilepsy/convulsions, denies headaches, denies head/spinal injuries, and denies stroke/TIA. Psychiatric: The patient denies psychiatric medications, denies depression, and denies voices, denies substance abuse. Endocrine: The patient denies thyroid disorders, denies diabetes, and denies hormonal problems. Hematologic: The patient denies a history of bruising, denies bleeding, and denies anemia, denies blood clots. Infections: The patient denies a history of measles and mumps, denies rheumatic fever, and denies sexually transmitted diseases. Musculoskeletal: The patient denies back pain/injury, denies back problems, denies sciatica, NOTES knee/foot trouble, NOTES arthritis, or denies gout. When was patient's last Mammogram screening? 01/06/2023 Last Colonoscopy: None Esperanza Pozo RN PHYSICAL EXAMINATION: General: The patient is 72 year old female, well nourished, well hydrated in no acute distress. The patient is oriented to time, place, and person. VITALS: Blood pressure 136/80, pulse 87, temperature 36.7 C (98 F), height 156.2 cm (5' 1.5), weight 73.1 kg (161 lb 3.2 oz), SpO2 99 %. Body mass index is 29.97 kg/m . HEENT: Normal cephalic, ataumatic, pupils are equally round, sclera are anicteric, mucous membranes are moist, oropharynx is clear. Neck has no masses, asymmetry or lymphadenopathy. Respiratory: Clear to auscultation and percussion. Normal respiratory excursion and pattern. Cardiac: Examination is regular rate and rhythm. Normal S1/S2 Abdominal exam: Soft, nontender, with no palpable masses. No hepatosplenomegaly. No palpable hernias. Extremities: no clubbing, cyanosis or edema. No adenopathy. LABORATORY VALUES: As Noted RADIOLOGIC STUDIES: As Noted Assessment IMPRESSION: positive Cologuard, need for colonoscopy PLAN: I have reviewed my findings with the surgeon. Will plan for lower endoscopy. Patient also offered EGD to evaluate for possible upper GI bleeding, declines EGD. We discussed the risks and benefits of the planned endoscopy. I have informed the patient that complications can occur including failure to complete the endoscopy and perforation. The patient had the opportunity to ask questions concerning the planned endoscopy. My staff has also explained the procedure to the patient in understandable terms and has given the patient printed material concerning the procedure. The patient freely consents to surgery. I plan to use Golytely bowel preparation I have explained to the patient the difference between IV conscious sedation and MAC anesthesia - and I have offered either, according to the patient's wishes. I have explained that with IV conscious sedation there is no anesthesia provider available and therefore there is a limitation of the amount of IV medications that can be given and that the patient may wake up in the middle of the procedure and/or experience pain/discomfort during the procedure. Further discussion was done and the patient was given the opportunity to ask questions and all questions were answered. The patient chooses IV conscious sedation Diagnoses: (R19.5) Positive colorectal cancer screening using Cologuard test Consultation requested by Katherine Vera CNP for an opinion regarding colonoscopy. My final recommendations will be communicated back to the requesting physician by way of shared Medical record or letter to requesting physician via US mail. Sarahy Rhodes PA-C documented in this encounter [facility] 01-27-2023 Nurse Note REVIEW OF SYSTEMS: General: The patient denies fatigue, denies weight loss, denies weight gain, denies feeling hot, and denies feelings of cold. Eyes: The patient denies glaucoma, denies eye injury/surgery, does not wear glasses or contacts. Ear/Nose/Throat: The patient NOTES allergies, denies hayfever, denies ear infections, and denies bloody noses. Cardiovascular: The patient denies chest pain, denies heart disease, denies high blood pressure,denies cardiac stent, denies prior heart attack, denies irregular heart beat, denies high cholesterol, denies poor circulation, denies heart failure, other cardiac issues, denies claudication, denies cold feet, denies peripheral arterial stent. Respiratory: The patient denies tuberculosis, denies pneumonia, denies frequent cough, denies pulmonary embolism, denies shortness of breath, and denies coughing up blood. Gastrointestinal: The patient denies difficulty swallowing, NOTES acid reflux, denies ulcers, denies vomiting, denies jaundice/hepatitis, denies gallbladder problems, denies black or tarry stools, denies hemorrhoids, denies bleeding from rectum, denies diverticulitis, denies constipation, denies diarrhea, denies loss of stool control, and denies hernias. Kidney/Bladder: The patient denies kidney stones, denies urine infections, and denies bloody urine. Skin: The patient denies a history of skin cancer, denies bleeding/changing moles, and denies a history of skin rash. Neurologic: The patient denies a history of epilepsy/convulsions, denies headaches, denies head/spinal injuries, and denies stroke/TIA. Psychiatric: The patient denies psychiatric medications, denies depression, and denies voices, denies substance abuse. Endocrine: The patient denies thyroid disorders, denies diabetes, and denies hormonal problems. Hematologic: The patient denies a history of bruising, denies bleeding, and denies anemia, denies blood clots. Infections: The patient denies a history of measles and mumps, denies rheumatic fever, and denies sexually transmitted diseases. Musculoskeletal: The patient denies back pain/injury, denies back problems, denies sciatica, NOTES knee/foot trouble, NOTES arthritis, or denies gout. When was patient's last Mammogram screening? 01/06/2023 Last Colonoscopy: None Esperanza Nohelia, RN documented in this encounter [facility] 01-16-2023 Miscellaneous Notes Patient is scheduled LEFT MESSAGE FOR PATIENT TO CALL OFFICE. Positive Cologuard test, will need to see general surgery Katherine Vera APRN.STAFF INTERPRETER documented in this encounter [facility] 01-10-2023 History of Present illness Narrative Radiology Service Progress Note PATIENT NAME: Adelina Dominguez DATE OF SERVICE: January 10, 2023 TIME: 3:36 PM PATIENT IDENTITY VERIFICATION COMPLETED USING TWO (2) IDENTIFIERS: Name and Date of confirmed by patient verbally. FALL SCREENING: Has the patient had 2 falls in the last year or 1 fall with injury or currently using an Ambulatory Assistive Device (Walker, Cane, Wheelchair, Crutches, etc.)? No PATIENT GENDER DATA: Female. status: : No status: NO. PATIENT RELEVANT IMPLANT DATA REVIEWED: Not Applicable RADIOLOGY DEPARTMENT: Bone Density PERIPHERAL IV DATA: Not applicable SIGNED BY: RT Jena(R) January 10, 2023 3:36 PM documented in this encounter [facility] 01-09-2023 Miscellaneous Notes January 09, 2023 PID: [id number] Adelina Dominguez [address] [place] [address] Dear Ms. Dominguez, We are pleased to inform you that the results of your recent breast imaging exam on 01/06/2023 are normal. Early detection of cancer is very important. We also understand recommendations regarding breast cancer screening are controversial. Please discuss with your primary care provider which strategy is best for you and whether a mammogram is right for you. Your imaging studies and report will be kept on file at [facility] as part of your permanent medical record and are available for your continuing care. Thank you for allowing us to help in meeting your health care needs. Sincerely, Dr. Swann Interpreting Radiologist [facility] (Normal over 40) documented in this encounter [facility] 12-09-2022 Nurse Note Ambulatory Ear Lavage Pre-treatment: Carbamide Peroxide (i.e. Debrox) by patient at home Treatment: Left ear Equipment and Irrigation solution and Volume used: Single use syringe with single use irrigation tip Water Return flow appearance: Clear Debris Patient tolerated procedure: yes Tympanic membrane assessment: Tympanic membrane assessed by LIP pre and post procedure Patient well tolerated. Rose Sanon LPN documented in this encounter [facility] 12-09-2022 Instructions Joana Nye MD - 12/09/2022 11:25 AM EDT BONE MINERAL DENSITY PATIENT INSTRUCTIONS ======== Bone mineral density testing measures the amount of calcium in certain parts of your bones. This information determines how strong your bones are. The test is used to detect osteoporosis, a disease in which the bone's mineral content and density are low, increasing a person's risk of fractures. The lumbar spine (lower back) and the hip are the skeletal sites usually examined. For the test, remember that: 1. You cannot take this test if you are . 2. Eat a normal diet on the day of the test. 3. Take your medications as you normally would. 4. DO NOT take calcium supplements (such as Tums) for 24 hours before the test. 5. On the day of the test, leave valuables (jewelry or credit cards) at home. 6. The test should be performed prior to oral, rectal or IV contrast studies, or at least 7 days after any of these studies. For the test, you may be asked to wear a hospital gown. You will lie on your back, on a padded table, in a comfortable position. Generally, you can resume your usual activities immediately. documented in this encounter [facility] 12-09-2022 History of Present illness Narrative This note was created using Yeapoo. Subjective Adelina Dominguez is a 72 year old female. HISTORY Adelina Dominguez is a 72 year old lady here for yearly exam and follow up appointment to re-establish. Noted OA issues in her hands. Not hurting but has stiffness and decreased dexterity. Had MRI low back. Dr. Manuel did injection for DDD issue. Doing better. Left knee issue--saw Dr. Montague and did Xray. Had signs of inflammation and some DJD. Steroid shot done and given diclofenac as needed--does help. Still staying active as able. More sinus issues as got older. Has had sinus infections. Recently had issue with cerumen impaction noted [facility]. Debrox tried. But has had feeling like left ear plugged that recurred lately. Decreased hearing when plugged up. Debrox helping with drops; tried to use bulb. Does has HCDPOA and LW. Will drop off copy. 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 1-2 capsules daily Bacillus coagulan/calcium carb (DIGESTIVE ADVANTAGE PROBIOTIC ORAL) Take 1 capsule by mouth once daily. diclofenac, EC, (VOLTAREN) 25 mg EC tablet Take 1 tablet by mouth as needed for pain. fluticasone (FLONASE) 50 mcg/actuation nasal spray Use 2 Sprays in each nostril as needed. Omeprazole Magnesium (PRILOSEC OTC) 20 mg ORAL TbEC as needed No current facility-administered medications for this visit. ALLERGIES Allergen Reactions Augmentin [Amoxicil* Diarrhea Bextra [Valdecoxib] Intolerance Headache Clindamycin Rash Systemic drug rash following tx. 2wks prior had been taking amoxil-done well in past. Ketoprofen Intolerance Headache Macrobid [Nitrofura* GI Upset Headache, chills Lodine [Etodolac] Intolerance Headache FAMILY HISTORY Problem Relation Age of Onset other (Other [Other]) Father CVA, Parkinsons, Dementia other (Other [Other]) Mother Crohn's Disease, osteoarthritis other (Other [Other]) Sister Renal failure; on kidney transplant list Social History Tobacco Use Smoking status: Never Smokeless tobacco: Never Substance Use Topics Alcohol use: No Drug use: No Review of Systems Objective BP 126/78 Pulse 64 Temp 36.7 C (98 F) Resp 18 Wt 72.1 kg (159 lb) SpO2 97% Last 5 Encounter Wt Readings: Date: Wt: 12/09/2022 72.1 kg (159 lb) 03/10/2019 68.9 kg (152 lb) 04/15/2018 70.1 kg (154 lb 9.6 oz) 11/19/2017 68.9 kg (152 lb) 05/07/2017 73 kg (161 lb) No waist measurement recorded Estimated body mass index is 26.09 kg/m as calculated from the following: Height as of 11/28/12: 162.6 cm (5' 4). Weight as of 03/10/19: 68.9 kg (152 lb). Last 5 Encounter BP Readings: Date: BP: 12/09/2022 126/78 03/10/2019 122/82 04/15/2018 112/86 11/19/2017 130/84 05/07/2017 122/82 Physical Exam Vitals reviewed. Constitutional: Appearance: She is well-developed. HENT: Head: Normocephalic and atraumatic. Right Ear: External ear normal. Left Ear: External ear normal. Nose: Nose normal. Eyes: Conjunctiva/sclera: Conjunctivae normal. Neck: Thyroid: No thyromegaly. Cardiovascular: Rate and Rhythm: Normal rate and regular rhythm. Pulses: Normal pulses. Heart sounds: Normal heart sounds. No murmur heard. No friction rub. No gallop. Pulmonary: Effort: Pulmonary effort is normal. Breath sounds: Normal breath sounds. Abdominal: General: Bowel sounds are normal. There is no distension. Palpations: Abdomen is soft. There is no mass. Tenderness: There is no abdominal tenderness. Musculoskeletal: General: No deformity. Normal range of motion. Comments: DJD changes in hands and left knee. Left knee with no joint line tenderness. Lymphadenopathy: Cervical: No cervical adenopathy. Skin: General: Skin is warm and dry. Coloration: Skin is not jaundiced or pale. Findings: No rash. Neurological: General: No focal deficit present. Mental Status: She is alert and oriented to person, place, and time. Cranial Nerves: No cranial nerve deficit. Sensory: No sensory deficit. Motor: No abnormal muscle tone. Coordination: Coordination normal. Deep Tendon Reflexes: Reflexes normal. Psychiatric: Mood and Affect: Mood normal. Behavior: Behavior normal. Thought Content: Thought content normal. Judgment: Judgment normal. Assessment and Plan Encounter Diagnosis ICD-10-CM 1. Hypercholesteremia E78.00 LIPID PANEL BASIC CBC 2. DDD (degenerative disc disease), lumbar M51.36 3. Primary osteoarthritis involving multiple joints M15.9 4. Screening for osteoporosis Z13.820 DXA-AXIAL SKELETON 5. Asymptomatic menopause Z78.0 DXA-AXIAL SKELETON 6. Encounter for screening mammogram for breast cancer Z12.31 NORA SCREENING 7. Encounter for screening for diabetes mellitus Z13.1 COMP METABOLIC PANEL 8. Screening, lipid Z13.220 LIPID PANEL BASIC 9. Colon cancer screening Z12.11 COLOGUARD Patient here for yearly exam and follow up. Above issues addressed with patient. Patient involved in shared decision making for management of medical issues. History and medications reviewed. Epic updated as needed Refills taken care of and meds adjusted as indicated after reviewed history, exam and labs. Health Maintenance reviewed. Updated record and/or ordered tests as recorded. Encouraged on efforts at healthy diet and regular exercise and adequate sleep. Joana Nye MD documented in this encounter [facility] Evaluation + Plan note No data available for this section [facility] Evaluation note No assessment inform ation available [facility] Work Phone: Evaluation note Diagnosis Hypercholesteremia- Primary Pure hypercholesterolemia DDD (degenerative disc disease), lumbar Degeneration of lumbar or lumbosacral intervertebral disc Primary osteoarthritis involving multiple joints Screening for osteoporosis Special screening for osteoporosis Asymptomatic menopause Encounter for screening mammogram for breast cancer Encounter for screening for diabetes mellitus Screening for diabetes mellitus Screening, lipid Screening for lipoid disorders Colon cancer screening Special screening for malignant neoplasms, colon Impacted cerumen of left ear Impacted cerumen [facility] Diagnosis Positive colorectal cancer screening using Cologuard test- Primary [facility] Diagnosis Positive colorectal cancer screening using Cologuard test- Primary [facility] Positive colorectal cancer screening using Cologuard test [facility] Diagnosis Screening for osteoporosis Special screening for osteoporosis Asymptomatic menopause [facility] Diagnosis Encounter for screening mammogram for breast cancer [facility] Diagnosis Pain- Primary Generalized pain Fracture Closed fracture of unspecified bone Closed fracture of right shoulder, initial encounter Pain Generalized pain [facility] Pain Generalized pain [facility] Diagnosis Hypercholesteremia- Primary Pure hypercholesterolemia Other closed nondisplaced fracture of proximal end of right humerus with routine healing, subsequent encounter Positive colorectal cancer screening using Cologuard test Vitamin D deficiency Unspecified vitamin D deficiency Encounter for immunization Need for other specified prophylactic vaccination against single bacterial disease Screening for depression Encounter for screening examination for other mental health and behavioral disorders Special screening examination for viral disease Special screening examination for unspecified viral disease [facility] Diagnosis Acute recurrent sinusitis, unspecified location- Primary [facility] Diagnosis Rhinosinusitis- Primary Unspecified sinusitis (chronic) documented in this encounter [facility] Discharge instructions No data available for this section [facility] Progress note No data available for this section [facility] Reason for referral (narrative)* Diagnostic Procedure Only (Routine) - Closed Specialty Diagnoses / Procedures Referred By Ebony catalan Referred To Contact [facility] Diagnoses Encounter for screening mammogram for breast cancer Procedures NORA SCREENING SCREENING MAMMOGRAPHY BI 2-VIEW BREAST INC Joana Ozuna MD [address] [place] [address] [facility] [address] [place] [address] Referral ID Status Reason Start Date Expiration Date V isits Requested Visits Authorized [id number] Closed Auto-Generate d Referral 12/09/2022 01/08/2024 1 1 [facility] for referral (narrative)* Outpatient Procedure (Routine) - Authorized Specialty Diagnoses / Procedures Referred By Ebony catalan Referred To Contact [facility] Diagnoses Positive colorectal cancer screening using Cologuard test Procedures COLONOSCOPY DIAGNOSTIC COLONOSCOPY FLX DX W/COLLJ SPEC WHEN PFRMD Sarahy Rhodes PA-C [address] [place] [id number] [facility] [address] [place] [address] Referral ID Status Reason Start Date Expiration Date Visits Requested Visits Authorized [id number] Authorized Auto-Generat ed Referral 01/27/2023 01/28/2024 1 1 [facility] for referral (narrative)* Diagnostic Procedure Only (Routine) - New Request Specialty Diagnoses / Procedures Referred By Ebony catalan Referred To Contact [facility] Diagnoses Encounter for screening mammogram for breast cancer Procedures NORA SCREENING W BENJAMIN SCREENING DIGITAL BREAST TOMOSYNTHESIS BI SCREENING MAMMOGRAPHY BI 2-VIEW BREAST INC Joana Ozuna MD [address] [place] [address] [facility] [address] [place] [address] Referral ID Status Reason Start Date Expiration Date Visits Requested Visits Authorized [id number] New Request Auto-Generat ed Referral 02/14/2024 03/15/2025 1 1 [facility] for referral (narrative)* Diagnostic Procedure Only (Urgent) - Closed Specialty Diagnoses / Procedures Referred By Contac t Referred To Contact [facility] Diagnoses Pain Procedures XR SHOULDER GENERAL 3V OR MORE AP/TRUE AP/OTHER RIGHT RADEX SHOULDER COMPLETE MINIMUM 2 VIEWS Jass Hickey APRN.STAFF INTERPRETER [address] [place] [address] [place] [address] Referral ID Status Reason Start Date Expiration Date V isits Requested Visits Authorized [id number] Closed Auto-Generate d Referral 02/28/2024 03/29/2025 1 1 [facility] for referral (narrative)* Diagnostic Procedure Only (Urgent) - Closed Specialty Diagnoses / Procedures Referred By Contac t Referred To Contact [facility] Diagnoses Pain Procedures XR SHOULDER GENERAL 3V OR MORE AP/TRUE AP/OTHER RIGHT RADEX SHOULDER COMPLETE MINIMUM 2 VIEWS Jass Hickey APRN.STAFF INTERPRETER [address] [place] [address] [place] [address] Referral ID Status Reason Start Date Expiration Date V isits Requested Visits Authorized [id number] Closed Auto-Generate d Referral 02/28/2024 03/29/2025 1 1 [facility] for visit Narrative* Diagnostic Procedure Only (Urgent) - Closed Specialty Diagnoses / Procedures Referred By Contac t Referred To Contact [facility] IMAG[facility] Diagnoses Pain Procedures XR SHOULDER GENERAL 3V OR MORE AP/TRUE AP/OTHER RIGHT RADEX SHOULDER COMPLETE MINIMUM 2 VIEWS Jass Hickey APRN.STAFF INTERPRETER [address] [place] [address] [place] [address] Referral ID Status Reason Start Date Expiration Date V isits Requested Visits Authorized [id number] Closed Auto-Generate d Referral 02/28/2024 03/29/2025 1 1 [facility] Chief Complaint Chief Complaint Description Start Date left shoulder pain Preliminary chief co mplaint data, not yet signed by the author as of Instructions Instruction Description Start Date Completed Advance Directives There may be information available, but it has not been provided by the sender. No Advanced Directives Records FoundNo Advanced Directives Records FoundNo Advanced Directives Records FoundNo Advanced Directives Records FoundNo Advanced Directives Records Found Assessments There may be information available, but it has not been provided by the sender. Review of System There may be information available, but it has not been provided by the sender. Family History There may be information available, but it has not been provided by the sender.No Family History Records FoundNo Family History Records FoundNo Family History Records Found No data available for this section No Family History Records FoundNo Family History Records Found History of Present Illness There may be information available, but it has not been provided by the sender. Summary Purpose Reason for Referral Specialty Diagnoses / Procedures Referred By Contac t Referred To Contact General Surgery Diagnoses Positive colorectal cancer screening using Cologuard test Procedures CONSULT TO GENERAL SURGERY OFFICE/OUTPATIENT NEW HIGH MDM 60-74 MINUTES Older, THOM Murphy.STAFF INTERPRETER [address] [place] [address] Referral ID Status Reason Start Date Expiration Date Visits Requested Visits Authorized [id number] Authorized PCP Requested Referral 01/16/2023 01/16/2024 1 1 Additional Source Comments Reason for Visit (unrecogniz ed section and content) Reason For Visit Description New - 1st visit with practice Preliminary reason f or visit data, not yet signed by the author as of left shoulder pain Reason Comments Physical Specialty Diagnoses / Procedures Referred By Contac t Referred To Contact Internal Medicine / INTERNAL MEDICINE Diagnoses physical Procedures 4C EST WELL Self Joana Nye MD [address] [place] [address] Referral ID Status Reason Start Date Expiration Date Visits Requested Visits Authorized [id number] Authorized Financial Clearance Not Required 12/09/2022 03/09/2023 99 99 Reason Comments 02-24-2023 [facility] Colon Reason Comments Consult Colonoscopy consult, positive Cologuard. Specialty Diagnoses / Procedures Referred By Contac t Referred To Contact General Surgery Diagnoses Positive colorectal cancer screening using Cologuard test Procedures CONSULT TO GENERAL SURGERY OFFICE/OUTPATIENT NEW HIGH MDM 60-74 MINUTES Older, THOM Murphy.STAFF INTERPRETER [address] [place] [address] Referral ID Status Reason Start Date Expiration Date V isits Requested Visits Authorized [id number] Closed PCP Requested Referral 01/16/2023 01/16/2024 1 1 Specialty Diagnoses / Procedures Referred By Contac t Referred To Contact Radiology / RADIO BONE DENSITY [facility] Diagnoses Screening for osteoporosis [Z13.820]; Asymptomatic menopause [Z78.0] Procedures DXA BONE DENSITY STUDY 1/> SITES AXIAL SKEL BONE DENSITY ADULT 225 Joana Nye MD [address] [place] [address] [facility] [address] [place] [address] Referral ID Status Reason Start Date Expiration Date Visits Re quested Visits Authorized [id number] Closed 01/10/2023 04/10/2023 1 1 Reason Comments Fall R shoulder and arm p ain after falling x last night Reason Comments Yearly Exam Reason Comments Sore Throat X2 days, L ear pain, fever, sinus congestion x1 week Reason Comments disk request Reason Comments Sinus Problem Nasal congestion, gr een drainage and CARPIO x 2 weeks INFORMATION SOURCE (unrecogn ized section and content) DATE CREATED AUTHOR [facility]/2020 [facility] DATE CREATED AUTHOR AUTHOR'S ORGANIZ ATION 02/26/2023 [facility] [facility] DATE CREATED AUTHOR AUTHOR'S ORGANIZ ATION 03/05/2024 [facility] DATE CREATED AUTHOR AUTHOR'S ORGANIZ ATION 03/23/2024 [facility] DATE CREATED AUTHOR AUTHOR'S ORGANIZ ATION 08/06/2024 [facility] Goals (unrecognized section and content) Goals may be documented in a n alternate section No data available for this section Source Comments (unrecognize d section and content) In the event this informatio n is protected by the Federal Confidentiality of Alcohol and Drug Abuse Patient Records regulations: The Federal rules restrict any use of the information to criminally investigate or prosecute any alcohol or drug abuse patient.[facility] the event this information is protected by the Federal Confidentiality of Alcohol and Drug Abuse Patient Records regulations: The Federal rules restrict any use of the information to criminally investigate or prosecute any alcohol or drug abuse patient.[facility] Center[facility] the event this information is protected by the Federal Confidentiality of Alcohol and Drug Abuse Patient Records regulations: The Federal rules restrict any use of the information to criminally investigate or prosecute any alcohol or drug abuse patient.[facility] Center[facility] the event this information is protected by the Federal Confidentiality of Alcohol and Drug Abuse Patient Records regulations: The Federal rules restrict any use of the information to criminally investigate or prosecute any alcohol or drug abuse patient.[facility] the event this information is protected by the Federal Confidentiality of Alcohol and Drug Abuse Patient Records regulations: The Federal rules restrict any use of the information to criminally investigate or prosecute any alcohol or drug abuse patient.[facility] the event this information is protected by the Federal Confidentiality of Alcohol and Drug Abuse Patient Records regulations: The Federal rules restrict any use of the information to criminally investigate or prosecute any alcohol or drug abuse patient.[facility] Center[facility] the event this information is protected by the Federal Confidentiality of Alcohol and Drug Abuse Patient Records regulations: The Federal rules restrict any use of the information to criminally investigate or prosecute any alcohol or drug abuse patient.[facility] Center[facility] the event this information is protected by the Federal Confidentiality of Alcohol and Drug Abuse Patient Records regulations: The Federal rules restrict any use of the information to criminally investigate or prosecute any alcohol or drug abuse patient.[facility] Center[facility] the event this information is protected by the Federal Confidentiality of Alcohol and Drug Abuse Patient Records regulations: The Federal rules restrict any use of the information to criminally investigate or prosecute any alcohol or drug abuse patient.[facility] Center[facility] the event this information is protected by the Federal Confidentiality of Alcohol and Drug Abuse Patient Records regulations: The Federal rules restrict any use of the information to criminally investigate or prosecute any alcohol or drug abuse patient.[facility] CenterIn the event this information is protected by the Federal Confidentiality of Alcohol and Drug Abuse Patient Records regulations: The Federal rules restrict any use of the information to criminally investigate or prosecute any alcohol or drug abuse patient.[facility] CenterIn the event this information is protected by the Federal Confidentiality of Alcohol and Drug Abuse Patient Records regulations: The Federal rules restrict any use of the information to criminally investigate or prosecute any alcohol or drug abuse patient.[facility] CenterIn the event this information is protected by the Federal Confidentiality of Alcohol and Drug Abuse Patient Records regulations: The Federal rules restrict any use of the information to criminally investigate or prosecute any alcohol or drug abuse patient.[facility] Care Teams (unrecognized sec tion and content) Grants Officer Relationship Specialty Start Date End Date Joana Nye MD [address] [place] [address] PCP - General Internal Medicine 11/28/12 Grants Officer Relationship Specialty Start Date End Date Joana Nye MD [address] [place], [place] [id number] PCP - General Internal Medicine 11/28/12 Grants Officer Relationship Specialty Start Date End Date Joana Nye MD [address] [place], [place] [address] PCP - General Internal Medicine 11/28/12 Grants Officer Relationship Specialty Start Date End Date Joana Nye MD [address] [place], [place] [address] PCP - General Internal Medicine 11/28/12 Grants Officer Relationship Specialty Start Date End Date Joana Nye MD [address] [place], [place] [address] PCP - General Internal Medicine 11/28/12 Grants Officer Relationship Specialty Start Date End Date Joana Nye MD [address] [place] [address] PCP - General Internal Medicine 11/28/12 Grants Officer Relationship Specialty Start Date End Date Joana Nye MD [address] [place] [address] PCP - General Internal Medicine 11/28/12 Grants Officer Relationship Specialty Start Date End Date Joana Nye MD [address] [place] [address] PCP - General Internal Medicine 11/28/12 Grants Officer Relationship Specialty Start Date End Date Joana Nye MD [address] [place] [address] PCP - General Internal Medicine 11/28/12 Tiffanie Barnhart, [employer].V BLOCK SAW OPERATOR [address] [place] [address] [employer] [facility] 04/29/24 Heidi Paulson [email or web address] INTERPRETER [address] [place] [address] [employer] [facility] 04/29/24 Grants Officer Relationship Specialty Start Date End Date Joana Nye MD [address] [place] [address] PCP - General Internal Medicine 11/28/12 Tiffanie Barnhart, [employer].V BLOCK SAW OPERATOR [address] [place] [address] [employer] Internal Medicine 04/29/24 Heidi Paulson APRN.STAFF INTERPRETER [address] [place], [place] [id number] [facility] Internal [facility] 04/29/24 Grants Officer Relationship Specialty Start Date End Date Joana Nye MD [address] [place], [place] [id number] PCP - General Internal Medicine 11/28/12 Tiffanie Barnhart [employer].V BLOCK SAW OPERATOR [address] [place], [place] [id number] [facility] Internal Medicine 04/29/24 Heidi Paulson APRN.STAFF INTERPRETER [address] [place], [place] [id number] [facility] Internal [facility] 04/29/24 FOR RECORDS PERTAINING TO PATIENTS WHO ARE OR HAVE BEEN ENROLLED IN A CHEMICAL DEPENDENCY/SUBSTANCEABUSE PROGRAM, SOME INFORMATION MAY BE OMITTED. This clinical summary was aggregated from multiple sources. Caution should be exercised in using it in the provision of clinical care. This summary normalizes information from multiple sources, and as a consequence, information in this document may materially change the coding, format and clinical context of patient data. In addition, data may be omitted in some cases. CLINICAL DECISIONS SHOULD BE BASED ON THE PRIMARY CLINICAL RECORDS. [employer] provides no warranty or guarantee of the accuracy or completeness of information in this document.
[2024-12-29] MEDS: Silver Nitrate (BKC) 2 EACH TOPICAL (15:54)
[2024-12-29 15:59] VITALS: BP 155/93; PULSE 81; RESP 18; TEMP 36.1; O2SAT 95
== END 2024-12-29 16:00 | disposition home or self-care (01) ==
PROVIDERS: Emergency Provider Emergency Medicine; PCP Internal Medicine; Visit Provider Emergency Medicine
DX: R04.0 Epistaxis (principal)
CPT/HCPCS: 30901; 99282